=== PATIENT | female | born 1985 | race Caucasian/White ===

== ENCOUNTER 2017-01-27 23:15 | Emergency (ER) | payer MEDICAID ==
[~2017-01-27] VITALS: Ht 154.9 cm; Wt 99.8 kg
[~2017-01-27 23:15] MED LIST: ACETAMINOPHEN500 M3 PO; ALEVE220 MG PO; ALIGN10.5 MG PO; ATIVAN GENERIC0.5 MG PO; ATIVAN1 M1 PO; CIPRO 500MG TA500 MG PO; CYMBALTA30 MG PO; FLEXERIL10 MG PO; HYDROCODONE-APA1 TA1 PO; IBUPROFEN 600M600 MG PO; IRON TABLETS325 MG PO; KEFLEX 500MG.500 MG PO; LORAZEPAM0.5 MG/TAB PO; MACROBID 100MG100 MG PO; MEDROL 4MG. DOSE4 MG PO; MYCOLOG TP; NAPROSYN500 M1 PO; NOMEDS *; NOMEDS XX; NORCO 325 MG-51 TAB PO; NYQUIL OR; PERCOCET 650 MG1 TAB PO; PHENERGAN25 M3 PO; PREDNISONE 10MG10 MG PO; PREDNISONE 20MG20 MG PO; PRENATAL PLUS1 TA1 PO; PROZAC 20MG CAP20 MG PO; PROZAC40 MG PO; PYRIDIUM 200MG200 MG PO; ROBAXIN-750750 MG PO; TESSALON PERLE100 M1 PO; TESSALON PERLE100 MG PO; TUSSIN DM 10 MG PO; TYLENOL ES500 M1 PO; TYLENOL EXTRA500 M1 PO; TYLENOL W/CODEI1 TA2 PO; Tramadol HCl50 MG PO; VIBRAMYCIN 100100 MG PO; VICODIN 5/500 T1 TAB PO; VIGAMOX 3 ML3 ML OP; VISTARIL25 M1 PO; VITAMIN D50000 IU PO; VOLTAREN75 MG PO; ZITHROMAX Z PA250 MG PO
[2017-01-27 23:44] LABS: HEMOGLOBIN 12.3 g/dL (12.2-16.2); LYMPH # 2.4 K/mm3 (0.7-4.5); LYMPH % 30.8 % (10-50.0)
[2017-01-27 23:47] LABS: URINE BILIRUBIN - DIPSTICK NEGATIVE (NEG); URINE BLOOD 3+ (NEG)
--- NOTE | 2017-01-28 00:04 | Emergency Room Report ---
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 N Clinical Suspician of Infection? N Mental Status: 1 - Regular (Normal Baseline) Sepsis Risk:Low Sepsis Risk Have you (or family members/close friends) recently traveled outside the [place]? N If Yes, where/when: Have you had exposure to infectious disease within the past month? TB? Other? Specify: Comment The patient complains of intermittent headaches, vertigo, and double vision. She says it is happening 4-5 times over the past week. It is always in the evening. She has about a 10 minute episode where she gets vertigo and says that her vision gets blurry and double. All of that resolves and then she develops a left -sided headache. She has phonophobia and nausea with the headache, but not photophobia. She says that the headache will resolve overnight and when she wakes up the next morning she is back to normal. The same thing happened tonight starting at about 6 PM. She says that her mother told her that her pupils were dilated. She currently just has a LEFT sided headache radiating down into her neck. No current vertigo or diplopia. She has a history of migraines when younger, but nothing recent. No auditory symptoms. ALLERGIES Coded Allergies: Sulfa (Sulfonamide Antibiotics) (Intermediate, I-RASH 12/30/16) Home Medications Active Scripts Azithromycin (Zithromycin (Z-ZENON) 250MG Tab) 250 MG PO DAILY #6 TAB Prov: 12/30/16 Prednisone (Prednisone 20MG) 20 MG PO BID #10 TAB Prov: 12/30/16 BENZONATATE (Benzonatate) 100 MG PO TID #15 CAP Prov: 12/30/16 Cyclobenzaprine Hcl (Flexeril) 5 MG PO TIDP PRN back pain or spasm #10 TAB Prov: 10/29/16 Reported Medications Fluoxetine Hcl (Prozac 20MG Capsule(Generic)) 20 MG PO DAILY History Medical History General CAD? No Angina: No RI: No Hypertension? No Hyperlipidemia? No CHF? No DVT? No PE? No COPD? No Asthma? No Anemia? No GERD? No Gastric ulcers? No GI Bleed? No Hernia? No Thyroid Problems? No Hypothyroidism? No CVA? No Seizures? No Diabetes? No Insulin Dependent: No Insulin Pump: No Home FSBS? No Renal Insuffiency? No End Stage Renal Disease? No UTI? Yes Stones? No BPH? No GB Disease: Yes Nephritic Syndrome? No Asplenia? No Hepatitis? No Sickle Cell Disease? No Arthritis? No Migraines? No Cataracts? No Glaucoma? No MRSA? No HIV? No TB? No Anxiety? Yes Depression? Yes Cancer? No More? 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 Psychiatric/Neurological headache, denies numbness, denies weakness Physical Exam Vital Signs Vital Signs Date Time Temp Pulse Resp B/P Pulse O2 O2 Flow FiO2 Ox Delivery Rate 01/28 0110 98.0 67 20 110/69 100 01/28 0044 98.2 56 20 117/71 100 01/28 0037 20 01/28 0011 97.8 70 20 113/58 99 01/27 2329 98.0 78 20 135/67 99 01/27 2325 98.0 76 18 135/67 99 General Appearance high BMI Eye Exam - bilateral eye normal exam, bilateral eye PERRL, bilateral eye EOMI Comment No nystagmus. Ear, Nose, Throat hearing grossly normal, normal ENT inspection, tympanic membranes and external auditory canals normal. Neck normal inspection, non-tender, supple, full range of motion Respiratory Status Yes: trachea midline, chest symmetrical, non tender chest. No: respiratory distress. Lung Sounds bilateral: normal breath sounds, lungs clear. 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 No Results/Orders Laboratory Tests 01/27/17 2340: Sodium 137, Potassium 3.5, Chloride 103, Carbon Dioxide 24, BUN 11, Creatinine 0.9, Estimated Creat Clear 145, Estimated GFR (MDRD) 74, Glucose 107 H, Calcium 9.2, Total Bilirubin 0.6, AST 14 L, ALT 23, Alkaline Phosphatase 95, Total Protein 7.7, Albumin 3.7, Globulin 4.0 H, Albumin/Globulin Ratio 0.9 L, WBC 7.7, RBC 4.00 L, Hgb 12.3, Hct 35.9 L, MCV 89.9, RDW 13.4, Plt Count 210, MPV 6.3 L, Gran % 60.3, Gran # 4.7, Lymphocytes % 30.8, Monocytes % 3.9, Eosinophils % 4.7, Basophils % 0.3, Lymphocytes # 2.4, Monocytes # 0.3, Eosinophils # 0.4, Basophils # 0.0, PUBS MCHC 34.3, MCH 30.9 01/27/17 2320: Urine Color YELLOW, Urine Appearance CLEAR, Urine pH 6.5, Ur Specific [place] <= 1.005, Urine Protein NEGATIVE, Urine Ketones NEGATIVE, Urine Blood 3+ H, Urine Nitrate NEGATIVE, Urine Bilirubin NEGATIVE, Urine Urobilinogen 0.2, Ur Leukocyte Esterase TRACE H, Urine RBC 10-20, Urine WBC 3-5, Ur Squamous Epith Cells 3-5, Urine Bacteria 1+, Urine Glucose NEGATIVE Current Medication Orders Sig/Kirt Start time Last Medication Dose Route Stop Time Status Admin Ketorolac 0 .STK-MED ONE 01/28 35 DC Tromethamine .ROUTE Ondansetron HCl 0 .STK-MED ONE 01/28 35 DC .ROUTE Ketorolac 30 MG ONCE ONE 01/28 30 DC 01/28 Tromethamine IV 01/28 31 0037 Ondansetron HCl 4 MG ONCE ONE 01/28 0030 DC 01/28 IV 01/28 31 0037 Sodium Chloride 1,000 ML .Q1H1M 01/27 2345 DC 01/27 IV 01/285 2340 Sodium Chloride 10 ML PRN PRN 01/27 2345 AC IV 01/28 2333 Sodium Chloride 10 ML PRN PRN 01/27 2345 AC IV 01/28 2333 Sodium Chloride 1,000 ML .STK-MED ONE 01/27 2334 DC IV Orders Procedure Date/time Status DIET-NOTHING BY MOUTH 01/[address] HEAD W/O CONTRAST 01/[address] HEAD REQ 01/27 2333 Complete IV SALINE LOCK 01/27 2333 Active URINALYSIS/COMPLETE 01/27 2333 Complete URINE 01/27 2333 Complete COMPLETE METABOLIC PANEL 01/27 2333 Complete CBC WITH AUTO DIFF 01/27 2333 Complete XRAY/CT/US XRAY/CT/US CT head Comment CT scan interpreted by [facility] radiologist. Faxed report received and reviewed: No CT evidence of acute intracranial pathology/trauma. Progress - 1:17 AM: The patient's headache is almost completely gone and she feels ready to be discharged. I feel that the patient's symptoms are most likely a migraine, with the diplopia and vertigo being elements of an aura. However, I have advised the patient that she should see her primary care physician for further evaluation to rule out other causes as well. Advised to return if she has return of diplopia that does not resolve in a quick fashion as it has done previously where she has intolerable headache or vertigo. Departure Departure Disposition DC Home or Self Care(routine) Clinical Impression Primary Impression: Migraine headache Qualifiers: Migraine type: with aura Status migrainosus presence: with status migrainosus Intractability: not intractable Qualified Code: G43.101 - Migraine with aura, not intractable, with status migrainosus Secondary Impressions: Diplopia, Vertigo Condition STABLE Referrals JAN GUTIERREZ (Family) Patient Instructions DI for Migraine, DI for Vertigo Additional Instructions Additional instructions for HEADACHE: See your physician as soon as possible for further evaluation. Return immediately if worsening headache, persistent double vision, vomiting, problems with vision or speech, fever, numbness or weakness of the extremities, neck pain or stiffness. Prescriptions Current Visit Scripts Naproxen (Naprosyn 500MG Tab) 500 MG PO BID #14 TAB Ondansetron (Zofran 4MG Odt) 4 MG PO Q8HP PRN NAUSEA AND VOMITING #10 ODT ED Critical Care Critical Care No at 0120
[2017-01-28] MEDS ORDERED: ZOFRAN ODT4 MG PO (01:20)
[2017-01-28] MEDS ORDERED: NAPROSYN500 M1 PO (01:20)
[2017-01-28 01:32] VITALS: BP 110/69
--- NOTE | 2017-01-28 05:38 | RADIOLOGY REPORT PS360 ---
CT HEAD W/O CONTRAST HISTORY: Dizziness and headache HEADACHE ORDERING PHYSICIAN: Sim Rubio MD PATIENT AGE: 31 years COMPARISON: None TECHNIQUE: Axial images obtained without contrast. Brain and bone windows reviewed. FINDINGS: No midline shift, mass effect, intracranial hemorrhage, hydrocephalus, or extra-axial fluid collection is evident. The calvarium has an unremarkable appearance. No mastoid effusion. The visualized paranasal sinuses are unremarkable. IMPRESSION: Negative CT head without contrast. No acute finding.
--- OUTSIDE RECORDS SUMMARY | 2017-02-02 09:09 | External Medical Summary Rpt ---
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 Care Caterer Helper Name Role Phone ALFARIS MOH, ALFARIS Unavailable Unavailable MOH ALFARIS MOH, ALFARIS Unavailable Unavailable MOH ALLRAN JR OMAR, ALLRAN Unavailable Unavailable JR OMAR ALLRAN JR OMAR, ALLRAN Unavailable Unavailable JR OMAR BESSON ANTONY, BESSON Unavailable Unavailable ANTONY [facility] Unavailable Unavailable [facility]ATOR[facility], [facility] Unavailable Unavailable [facility]ATOR[facility], [facility] ALVARADO, ALVARADO Unavailable Unavailable [facility] Unavailable Unavailable [facility] Unavailable Unavailable HEATHER HERRERA MD, Unavailable Unavailable HEATHER HERRERA MD [facility] & Unavailable Unavailable DUBILIER, [facility] DOUGLASS ALEX, DOUGLASS Unavailable Unavailable [facility] Un[facility] ABIGAIL GRACE, Unavailable Unavailable ABIGAIL GRACE LEONA MAREK, LEONA Unavailable Unavailable MAREK LEONA MAREK, LEONA Unavailable Unavailable MAREK JORDANA COPPOLA MD, Unavailable Unavailable JORDANA Coppola MD, Unavailable Unavailable Jordana Coppola MD JACY MAREK, JACY MAREK Unavailable Unavailable HARPEL WANDA, HARPEL Unavailable Unavailable WANDA HARPEL WANDA, HARPEL Unavailable Unavailable WANDA [facility] Un[facility] Un[facility], [facility] Unavailable Unavailable [facility], [facility], Unavailable Unavailable [facility] Unavailable Unavailable IMAGING [facility], [facility] Leticia Allred MD, Unavailable Unavailable Leticia Allred MD WANG MANUEL, WANG Unavailable Unavailable MANUEL Sol Hicks MD, Unavailable Unavailable Sol TATE GRE, Unavailable Unavailable [facility], Unavailable Unavailable [facility] Unavailable Unavailable SERVICES, [facility] Unavailable Unavailable [facility] Un[facility] Unavailable [facility], [facility] Unavailable Unavailable LAB, [facility] Unavailable [facility]available CENTER, [facility] Unavailable Unavailable CENTER, [facility] ARDEN HAMLIN, Unavailable Unavailable ARDEN SIMPSON BOUBACAR VICKIE TOD, VICKIE TOD Unavailable Unavailable RENUSCH, RENUSCH Unavailable Unavailable RENUSCH YENI, RENUSCH Unavailable Unavailable YENI SADEK MOH, SADEK MOH Unavailable Unavailable SELPH [facility], [facility]PH [facility] Unavailable Unavailable SOTINGEANU DIANN, Unavailable Unavailable SOTINGEANU DIANN TYLER SHE, Unavailable Unavailable TYLER SHE [facility], Unavailable Unavailable [facility] Unavailable Unavailable CENTER, [facility] STONE, STONE Unavailable Unavailable [facility] Unavailable Unavailable [facility] Unavailable Unavailable [facility] Unavailable [facility] Unavailable [facility]available DEPT [facility] Purpose Continuity of Care Document - 10-06-2012 through 2016 Problems Code Diagnosis DOS Provider Status R05 COUGH 12-30-2016 [facility] M5417 RADICULOPAT 11-09-2016 [facility] PHYS[facility]ANS LUMBOSACRAL GROUP REGION M5442 LUMBAGO 10-29-2016 [facility] WITH [facility]YSICIANS, SCIATICA PLLC LEFT SIDE K5289 OTH SPEC 08-03-2016 [facility] NONINFECTIV [facility]ICIANS, [facility] GA[facility] ITIS & COLITIS K529 NONINFECTIV 08-03-2016 [facility] INC ITIS & COLITIS UNS M722 PLANTAR 04-20-2016 [facility] FASCIAL PHYSICIANS, FIBROMATOSI [facility] S M2669 OTHER 04-05-2016 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 [id number] DISLOCATION 04-05-2016 [facility] OF JAW PHYSICIANS, INITIAL PLLC ENCOUNTER K021GHI SPRAIN 04-05-2016 [facility] LIGAMENTS PHYSICIANS, T-SPINE PLLC INITIAL ENCOUNTER Z720 TOBACCO USE 04-05-2016 [facility] INC Z0100 ENCOUNTER 01-28-2016 [facility] EXAM EYES & GRE VISION W/O ABNORMAL FIND [id number] MIGRAINE 10-10-2015 [facility] UNS NOT PHYSICIANS, INTRACT W/O PLLC STATUS MIGRAINOSUS R0789 OTHER CHEST 10-10-2015 [facility] PAIN PHYSICIANS, PLLC 28946 OTHER&UNSPE 05-12-2015 [facility] CIFIED DISC PHYSICIANS, DISORDER PLLC CERVICAL REGION 77932 OTHER 04-16-2015 [facility] FATIGUE INC 77100 OTHER SIGN 11-01-2014 JORDANA Kelley AND SYMPTOM [place] IN BREAST 52839 BREECH 10-25-2014 [facility] PRES[facility]ATIO ANESTH OF N W/O THE BLUE MENTION VERSION DELIV 60431 PREV C/S 10-25-2014 [facility] DELIV DELIV PHYSICIANS W/WO GROUP MENTION ANTPRTM COND V252 STERILIZATI 10-25-2014 [facility] INC V270 OUTCOME OF 10-25-2014 [facility] DELIVERY PHYSICIANS SINGLE GROUP LIVEBORN V7269 OTHER 10-25-2014 [facility] & EXAMINATION DUBILIER V221 SUPERVISION 10-19-2014 JORDANA Kelley OF OTHER [place] NORMAL 85310 PREMATURE 10-18-2014 [facility] RUPTURE [facility] MEMBRANES INC ANTEPARTUM 50060 OTHER 10-14-2014 JORDANA Kelley THREATENED [place] LABOR, ANTEPARTUM 24084 EDEMA OR 10-14-2014 [facility] EXCESSIVE [facility] WEIGHT GAIN INC ANTEPARTUM 33341 THREATENED 10-08-2014 [facility] PREMATURE PHYSICIANS LABOR GROUP ANTEPARTUM 15084 OTHER 10-07-2014 [facility] SPECIFED [facility] COMPLICATIO INC N ANTEPARTUM V286 SCREENING 10-05-2014 [facility] OF [facility] STREPTOCOCC INC US B V771 SCREENING 09-27-2014 [facility] FOR [facility] DIABETES INC MELLITUS 7910 PROTEINURIA 09-25-2014 [facility] INC 78495 DECR 09-07-2014 JORDANA COPPOLA MD MGMT MOTH ANTPRTM COND/COMP V285 08-13-2014 [facility]CREENING [facility] FOR INC ISOIMMUNIZA TION 7840 HEADACHE 07-20-2014 [facility] INC 50439 ABDOMINAL 07-20-2014 [facility] PAIN, [facility] UNSPECIFIED INC SITE 4659 ACUTE URIS 07-10-2014 [facility] OF [facility] UNSPECIFIED INC SITE 7291 UNSPECIFIED 07-10-2014 ALFARIS MOH MYALGIA AND MYOSITIS V2889 OTHER 05-24-2014 [facility] INC SCREENING 490 BRONCHITIS 05-13-2014 LEONA MAREK NOT SPECIFIED ACUTE OR CHRONIC 46687 EFFUSION OF 04-15-2014 [facility] 15808 PAIN IN 04-15-2014 [facility] JOINT, MEDICAL LOWER [facility]G [facility] 8449 SPRAIN&STRA 04-15-2014 [facility] IN OF UNSPECIFIED SITE OF KNEE&LEG 37977 UNSPECIFIED 04-15-2014 [facility] SITE OF ANKLE SPRAIN AND STRAIN 9597 INJURY 04-15-2014 [facility] OTHER&UNSPE MEDICAL CIFIED KNEE IMAGING ASS LEG ANKLE&FOOT E8888 OTHER FALL 04-15-2014 [facility] 6268 OTH D/O 03-23-2014 HARPEL WANDA MENSTRUATIO N&OTH ABN BLEED FE GNT TRACT V704 EXAMINATION 03-23-2014 [facility] MEDICOLEGAL LABORATORIE REASON S V7231 ROUTINE 03-23-2014 HARPEL WANDA GYNECOLOGIC AL EXAMINATION V7242 03-15-2014 [facility] POSITIVE RESULT 300.00 300.00 09-27-2013 [place] ANXIETY [facility] Hospital 305.1 305.1 09-27-2013 [place] TOBACCO USE [facility] 311 311 09-27-2013 [place] DEPRESSIVE [facility] NEC V242 ROUTINE 07-25-2013 JORDANA Kelley [place] FOLLOW-UP 18710 CALCU 2013 PATHOLOGY & [facility] CYTOLOGY W/OTH LAB CHOLECYST W/O MENTION OBST 04570 CALCU 2013 [facility] MEDICAL W/O MENTION IMAGING ASS CHOLECYST/O BST 06045 ACUTE AND 2013 SIVAKUMAR SIMPSON CHRONIC OMAR CHOLECYSTIT IS 5756 CHOLESTEROL 2013 PATHOLOGY & OSIS OF CYTOLOGY [facility] LAB 575.9 575.9 DIS 06-26-2013 [facility] Hospital NOS V14.8 V14.8 06-26-2013 [facility] HX-DRUG [facility] ALLERGY [facility] Hospital 5759 UNSPECIFIED 06-25-2013 [facility] OF SERVICES GALL[place] 88111 ABDOMINAL 06-25-2013 [facility] PAIN RIGHT EMERGENCY UPPER SERVICES QUADRANT 95018 CALCU BD 06-20-2013 SIVAKUMAR SIMPSON W/OTH OMAR CHOLECYST W/O MENTION OBSTRUCTION 5758 OTHER 06-20-2013 SIVAKUMAR SIMPSON SPECIFIED OMAR DISORDER OF [place] 493.90 493.90 06-19-2013 [place] ASTHMA, [facility] UNSPECIFIED Hospital 574.20 574.20 06-19-2013 [facility] CHOLELITHIA [facility] SIS NOS Hospital V2502 GENERAL 06-06-2013 JORDANA COPPOLA MD INITIATION OT CONTRACEPT MEASURES V2509 OT GENERAL 06-06-2013 JORDANA COPPOLA MD CNSL&ADVICE CONTRACEPT MANAGEMENT V5832 ENCOUNTER 06-06-2013 JORDANA Kelley FOR REMOVAL [place] OF SUTURES 285.9 285.9 06-02-2013 [place] ANEMIA NOS [facility] 641.21 641.21 GWEN 06-02-2013 [facility] V [address]139 PREMATURE 06-02-2013 JORDANA COPPOLA MD OF [place] WITH DELIVERY 652.21 652.21 06-02-2013 [facility] C/S DELIV 06-02-2013 JORDANA Kelley W/O INDICAT [place] DELIV W/WO ANTPRTM COND V27.0 V27.0 06-02-2013 [facility] DELIVER-SIN [facility] LIVEBORN 2859 UNSPECIFIED 05-30-2013 [facility] 79036 UNSPECIFIED 05-30-2013 [facility] ANTEPARTUM MEDICAL HEMORRHAGE IMAGING ASS ANTEPARTUM 51304 BREECH 05-30-2013 [facility] PRESENTATIO MEDICAL N W/O IMAGING ASS MENTION VERSION ANTPRTM 76241 OT 05-30-2013 [facility]ACENT[facility] CLARY & CONDS DUBILIER AFFECT MANAGEMENT MOTH DELIV 4660 ACUTE 05-10-2013 [facility] 99488 OT CURRENT 04-30-2013 JORDANA COPPOLA MD CLASSIFIABL E ELSW ANTPRTM 9222 CONTUSION 04-30-2013 JORDANA LOTT MD ABDOMINAL WALL 67265 DYSPLASIA 02-20-2013 JORDANA ESTRADA CERVIX [facility] UNSPECIFIED 32090 GALLSTONE 01-25-2013 [facility] V222 12-18-2012 [facility] 25363 THREATENED 11-12-2012 [facility] UNSPECIFIED SERVICES EPISODE CARE 63104 THREATENED 11-12-2012 [facility] , [facility] ANTEPARTUM INC 35089 UNSPEC 11-12-2012 [facility] HEMORRHAGE MEDICAL EARLY IMAGING ASS ANTEPARTUM 14865 OT CURRENT 11-12-2012 [facility] MATERNAL [facility]ERGENCY CCE-COMPL SERVICES PG CB/PP-UNS EOC 64214 OTH 10-27-2012 [facility] PLACENTAL PHYSICIAN CONDS GROUP PCC AFFECT MGMT MOTH ANTPRTM 21374 OBESITY, 10-17-2012 [facility] UNSPECIFIED PHYSICIAN GROUP PCC 6260 ABSENCE OF 10-17-2012 [facility] MENSTRUATIO PHYSICIAN N GROUP PCC V2689 OTHER 10-06-2012 [facility] SPECIFIED [facility] DEPT MANAGEMENT VASILIY G43.909 MIGRAINE, UNSP, NOT INTRACTABLE , WITHOUT STATUS MIGRAINOSUS H53.2 DIPLOPIA J40 BRONCHITIS, NOT SPECIFIED ACUTE OR CHRONIC K52.9 NONINFECTIV E GASTROENTER ITIS AND COLITIS, UNSPECIFIED M50.90 CERVICAL DISC DISORDER, UNSP, UNSPECIFIED CERVICAL REGION M54.40 LUMBAGO WITH SCIATICA, UNSPECIFIED SIDE M72.2 PLANTAR FASCIAL FIBROMATOSI S R07.89 OTHER CHEST PAIN R42 DIZZINESS AND GIDDINESS S03.00XA DISLOCATION OF JAW, UNSPECIFIED SIDE, INITIAL ENCOUNTER S29.019A STRAIN OF MUSCLE AND TENDON OF UNSP WALL OF THORAX, INIT Allergies, Adverse Reactions, Alerts Type Drug Allergy Adverse Reaction to Substance Substance Reaction Severity SULFA (sulfonamide) Unknown Unknown Clinical Alert Notifications Alert Asthma: no influenza vaccine in the last 365 days Medications Na ND Rx Da Fi Fi Am Da Di Ph RX Ph St me C No te ll ll ou ys ag ar # ys at rm s nt no ma ic us Or Da si cy ia de te s n re d BE 68 04 05 15 5 00 [facility] NZ 38 -2 -1 .0 00 L- ti ON 20 00 07 MA ve AT 24 20 20 48 RT AT 70 17 17 45 E 1 08 PH 10 AR 0 MA MG CY CA #5 PS 91 UL E ID 00 04 05 10 5 00 [facility] ED 14 -2 -1 .0 00 L- ti NI 39 6- 9- 00 07 MA ve SO 73 20 20 48 RT NE 80 17 17 45 5 07 PH 20 AR MA MG CY TA #5 BL 91 ET AZ 59 04 05 6. 5 00 [facility] IT 76 -2 -1 00 00 L- ti HR 23 6- 9- 0 07 MA ve OM 06 20 20 48 RT YC 00 17 17 45 IN 1 06 PH AR 25 MA 0 CY MG #5 TA 91 BL ET FL 68 04 05 30 30 00 WA Ac UO 64 -1 -0 .0 00 L- ti XE 50 1- 5- 00 07 MA ve TI 13 20 20 43 RT NE 05 17 17 69 4 99 PH HC AR L MA 20 CY MG #5 91 CA PS UL E NA 65 03 03 28 14 00 WA Ac ID 16 -0 -3 .0 00 L- ti OX 20 6- 1- 00 07 MA ve EN 19 20 20 47 RT 01 17 17 44 50 1 32 PH 0 AR MG MA CY TA BL #5 ET 91 CY 68 03 03 42 14 00 WA Ac CL 64 -0 -3 .0 00 L- ti OB 50 6- 1- 00 07 MA ve EN 51 20 20 47 RT ZA 89 17 17 44 ID 0 33 PH IN AR E MA 10 CY MG #5 91 TA BL ET ME 59 03 03 21 6 00 WA Ac TH 74 -0 -3 .0 00 L- ti YL 60 6- 1- 00 07 MA ve ID 00 20 20 47 RT ED 10 17 17 44 NI 3 34 PH SO AR LO MA NE CY 4 #5 MG 91 DO SE PK TR 00 03 03 42 14 00 WA Ac AM 37 -0 -3 .0 00 L- ti AD 84 6- 1- 00 04 MA ve OL 15 20 20 52 RT 10 17 17 95 HC 5 72 PH L AR 50 MA CY MG #5 TA 91 BL ET HY 00 03 03 [address] 40 -0 -3 .0 00 L- ti OC 60 7- 1- 00 02 MA ve OD 12 20 20 23 RT ON 30 17 17 94 -A 1 14 PH CE AR TA MA PR CY NO PH #5 EN 91 5- 32 5 ID 59 02 03 27 7 00 WA Ac ED 74 -2 -2 .0 00 L- ti NI 60 3- 4- 00 07 MA ve SO 17 20 20 47 RT NE 30 17 17 25 6 30 PH 10 AR MA MG CY TA #5 BL 91 ET CY 68 02 03 10 7 00 WA Ac CL 64 -2 -2 .0 00 L- ti OB 50 3- 4- 00 07 MA ve EN 51 20 20 47 RT ZA 89 17 17 25 ID 0 31 PH IN AR E MA 10 CY MG #5 91 TA BL ET HY 00 02 03 [address] 40 -2 -2 .0 00 L- ti OC 60 3- 4- 00 02 MA ve OD 12 20 20 23 RT ON 30 17 17 92 -A 1 64 PH CE AR TA MA PR CY NO PH #5 EN 91 5- 32 5 FL 68 12 01 30 30 00 WA Ac UO 64 -2 -2 .0 00 L- ti XE 50 8- 0- 00 07 MA ve TI 13 20 20 43 RT NE 05 16 17 69 4 99 PH HC AR L MA 20 CY MG #5 91 CA PS UL E Lo 63 01 0 No ra 73 -2 ze 90 2- Lo pa 15 20 ng m 51 14 er 1M 0 G Ac Ta ti bl ve et Mo 00 10 0 No rp 40 -2 hi 91 1- Lo ne 25 20 ng 83 13 er 4M 0 G/ Ac Ml ti ve Sy ri ng e ON 00 10 0 No DA 64 -2 NS 16 1- Lo ET 08 20 ng RO 02 13 er N 5 HC Ac L ti 4 ve MG /2 ML AL ID 00 10 0 No OM 64 -2 ET 11 1- Lo PUENTE 49 20 ng ZI 53 13 er NE 5 Ac 25 ti ve MG /M L AM PU L Mo 00 10 0 No rp 40 -2 hi 91 1- Lo ne 25 20 ng 83 13 er 4M 0 G/ Ac Ml ti ve Sy ri ng e SO 00 10 0 No DI 40 -2 UM 97 1- Lo 98 20 ng CH 42 13 er LO 0 RI Ac DE ti ve 0. 9% SO NADER TI ON Sa 63 10 1 No li 80 -2 ne 70 0- Lo 10 20 ng Fl 07 13 er us 5 h Ac 10 ti ML ve Sy ri ng e KE 00 10 0 No TO 40 -1 RO 93 4- Lo LA 79 20 ng C 50 13 er 30 1 Ac MG ti /M ve L AL ID 00 10 0 No OM 64 -1 ET 11 4- Lo PUENTE 49 20 ng ZI 53 13 er NE 5 Ac 25 ti ve MG /M L AM PU L Sa 63 10 0 No li 80 -1 ne 70 4- Lo 10 20 ng Fl 07 13 er us 5 h Ac 10 ti ML ve Sy ri ng e Mo 00 10 0 No rp 40 -1 hi 91 4- Lo ne 25 20 ng 83 13 er 4M 0 G/ Ac Ml ti ve Sy ri ng e SO 00 10 0 No DI 40 -1 UM 97 4- Lo 98 20 ng CH 42 13 er LO 0 RI Ac DE ti ve 0. 9% SO NADER TI ON SO 00 10 0 No DI 40 -0 UM 97 8- Lo 98 20 ng CH 30 13 er LO 9 RI Ac DE ti ve 0. 9% SO NADER TI ON NI 00 09 0 No CO 06 -2 TI 75 5- Lo NE 12 20 ng 61 13 er 21 4 Ac MG ti /2 ve 4H R PA TC H SO 00 09 0 No DI 40 -2 UM 97 4- Lo 10 20 ng CH 16 13 er LO 6 RI Ac DE ti ve 0. 9% SO LN CE 60 09 1 No FA 50 -2 ZO 50 4- Lo LI 74 20 ng N 90 13 er 1 5 GM Ac ti ve AL LA [address] 40 -2 AT 97 4- Lo ED 95 20 ng 30 13 er RI 9 NG Ac ER ti S ve IN JE CT IO N PI 11 09 0 No TO 11 -2 CI 11 4- Lo N 11 20 ng 30 13 13 er 3 UN Ac IT ti S/ ve LR 50 0M L IV MA 00 09 3 No PA 90 -2 P 41 4- Lo 32 98 20 ng 5 26 13 er MG 1 Ac TA ti BL ve ET Ib 62 09 3 No up 58 -2 ro 40 4- Lo fe 74 20 ng n 60 13 er 40 1 0M Ac G ti Ta ve bl et Mo 00 09 1 No rp 40 -2 hi 91 4- Lo ne 25 20 ng 83 13 er 4M 0 G/ Ac Ml ti ve Sy ri ng e OX 00 09 3 No YC 40 -2 OD 60 4- Lo ON 55 20 ng E 26 13 er HC 2 L Ac 5 ti MG ve TA BL ET SE 67 09 3 No NO 61 -2 KO 80 4- Lo T- 31 20 ng S 00 13 er TA 1 BL Ac ET ti ve SI 63 09 3 No ME 73 -2 TH 90 4- Lo IC 22 20 ng ON 51 13 er E 0 80 Ac ti MG ve TA B CH EW Sa 63 03 0 No li 80 -0 ne 70 9- Lo 10 20 ng Fl 07 13 er us 5 h Ac 10 ti ML ve Sy ri ng e Vital Signs 09-27-2013 18:59 Name Value Interpretat Reference Comment ion Range Body 98.6 [degF] Temperature BP 79 mm[Hg] Diastolic BP Systolic 152 mm[Hg] Heart 77 /min Rate/Pulse O2% 98 % Respiratory 20 /min Rate 09-27-2013 18:11 Name Value Interpretat Reference Comment ion Range BP 82 mm[Hg] Diastolic BP Systolic 139 mm[Hg] Heart 81 /min Rate/Pulse O2% 98 % Respiratory 20 /min Rate 06-26-2013 01:25 Name Value Interpretat Reference Comment ion Range BP 61 mm[Hg] Diastolic BP Systolic 115 mm[Hg] Heart 65 /min Rate/Pulse O2% 96 % Respiratory 16 /min Rate 06-26-2013 00:23 Name Value Interpretat Reference Comment ion Range BP 58 mm[Hg] Diastolic BP Systolic 128 mm[Hg] Heart 65 /min Rate/Pulse O2% 97 % Respiratory 20 /min Rate 06-19-2013 13:22 Name Value Interpretat Reference Comment ion Range BP 55 mm[Hg] Diastolic BP Systolic 111 mm[Hg] Heart 55 /min Rate/Pulse O2% 97 % Respiratory 20 /min Rate 06-19-2013 12:36 Name Value Interpretat Reference Comment ion Range BP 53 mm[Hg] Diastolic BP Systolic 113 mm[Hg] Heart 62 /min Rate/Pulse O2% 98 % Respiratory 20 /min Rate 06-13-2013 12:19 Name Value Interpretat Reference Comment ion Range BP 50 mm[Hg] Diastolic BP Systolic 118 mm[Hg] Heart 76 /min Rate/Pulse Respiratory 20 /min Rate 06-13-2013 11:50 Name Value Interpretat Reference Comment ion Range O2% 98 % 06-13-2013 10:10 Name Value Interpretat Reference Comment ion Range BP 66 mm[Hg] Diastolic BP Systolic 124 mm[Hg] Heart 68 /min Rate/Pulse O2% 98 % Respiratory 18 /min Rate 05-30-2013 19:27 Name Value Interpretat Reference Comment ion Range Weight 223 [lb_av] Measured Weight 101.152 kg Measured 11-12-2012 16:50 Name Value Interpretat Reference Comment ion Range Body 97.5 [degF] Temperature BP 66 mm[Hg] Diastolic BP Systolic 114 mm[Hg] Heart 86 /min Rate/Pulse O2% 97 % Respiratory 18 /min Rate 11-12-2012 15:26 Name Value Interpretat Reference Comment ion Range BP 82 mm[Hg] Diastolic BP Systolic 141 mm[Hg] Heart 79 /min Rate/Pulse O2% 96 % Respiratory 20 /min Rate Results Labs Lab Lab Date Result Refere Interp Status Commen Order Detail nces retati t Range on COMPREHENSIVE METABOLIC PANEL (06-25-2013 23:50) Glucose 06-25-2 91 74-106 complet 013 mg/dL ed Bld-mCn 23:50 c BUN 1020-2 7 mg/dL 7-18 complet Bld-mCn 013 ed c 23:50 Creat 20-2 1.0 0.6-1.0 complet SerPl-m 013 mg/dL ed Cnc 23:50 ESTIMAT 1020-2 132 50-200 complet ED 013 ML/MIN ed CREATIN 23:50 INE CLEARAN CE GFR 06-25-2 68 59- complet (ESTIMA 013 ML/MIN ed KRISTI) 23:50 Sodium 06-25-2 140 136-145 complet SerPl-s 013 mmoL/L ed Cnc 23:50 Potassi 06-25-2 4.1 3.5-5.1 complet um 013 mmoL/L ed SerPl-s 23:50 Cnc Chlorid 06-25-2 103 98-107 complet e 013 mmoL/L ed SerPl-s 23:50 Cnc CO2 20-2 28 21.0-32 complet SerPl-s 013 mmoL/L .0 ed Cnc 23:50 Calcium 06-25-2 9.1 8.5-10. complet 013 mg/dL 1 ed SerPl-m 23:50 Cnc Prot 20-2 8.1 6.4-8.2 complet SerPl-m 013 gm/dL ed Cnc 23:50 Albumin 20-2 3.4 3.4-5.0 complet 013 gm/dL ed SerPl-m 23:50 Cnc Globuli 20-2 4.7 1.3-3.2 complet n 013 gm/dL ed Ser-mCn 23:50 c Albumin 20-2 0.7 UNK 1.1-1.8 complet /Glob 013 ed SerPl-m 23:50 Rto Bilirub 06-25-2 1.0 0.2-1.0 complet 013 mg/dL ed SerPl-m 23:50 Cnc AST 1020-2 73 U/L 15-37 complet SerPl-c 013 ed Cnc 23:50 ALT 1020-2 50 U/L 30-65 complet SerPl-c 013 ed Cnc 23:50 ALP 10-20-2 335 U/L 50-136 complet SerPl-c 013 ed Cnc 23:50 Amylase SerPl-cCnc (06-25-2013 23:50) Amylase 10-20-2 44 U/L 25-115 complet 013 ed SerPl-c 23:50 Cnc LIPASE (06-25-2013 23:50) LIPASE 10-20-2 113 U/L 73-393 complet 013 ed 23:50 CBC with AUTO DIFF (06-25-2013 23:50) WBC # 10-20-2 8.7 4.8-10. complet Bld 013 K/MM3 8 ed Auto 23:50 RBC # 10-20-2 4.07 4.2-5.4 complet Bld 013 M/mm3 ed Auto 23:50 Hgb 10-20-2 12.6 12.2-16 complet Bld-mCn 013 g/dL .2 ed c 23:50 Hct Fr 10-20-2 37.6 % 37.0-47 complet Bld 013 .0 ed 23:50 MCV RBC 10-20-2 92.4 fl 82.2-97 complet 013 .8 ed 23:50 MCH RBC 10-20-2 31.1 pg 27-31.2 complet Qn 013 ed Auto 23:50 MEAN 10-20-2 33.6 31.8-35 complet CORPUSC 013 g/dl .4 ed ULAR 23:50 HGB CONC RDW RBC 10-20-2 13.9 % 11.5-17 complet Auto 013 .5 ed 23:50 Platele 10-20-2 269 142-424 complet t Bld 013 K/mm3 ed Ql 23:50 Manual MEAN 10-20-2 8.1 fl 7.4-10. complet PLATELE 013 4 ed T 23:50 VOLUME Granulo 10-20-2 64.7 % 37.0-80 complet cytes 013 .0 ed Fr Bld 23:50 Auto LYMPH % 10-20-2 28.4 % 10-50.0 complet 013 ed 23:50 Monocyt 10-20-2 3.7 % 1.7-9.3 complet es Fr 013 ed Bld 23:50 Auto Eosinop 10-20-2 2.9 % 0.1-12. complet hil Fr 013 0 ed Bld 23:50 Auto Basophi 10-20-2 0.4 % 0.1-2.0 complet ls Fr 013 ed Bld 23:50 Auto Granulo 06-25-2 5.6 1.8-7.8 complet cytes # 013 K/mm3 ed Bld 23:50 Auto Lymphoc 06-25-2 2.5 0.7-4.5 complet ytes Fr 013 K/mm3 ed Bld 23:50 Auto Monocyt 06-25-2 0.3 0.1-1.0 complet es # 013 K/mm3 ed Bld 23:50 Auto Eosinop 06-25-2 0.3 0.0-0.4 complet hil # 013 K/mm3 ed Bld 23:50 Auto Basophi 06-25-2 0.0 0-0.2 complet ls # 013 K/MM3 ed Bld 23:50 Auto COMPREHENSIVE METABOLIC PANEL (06-19-2013 11:20) Glucose 99 74-106 complet 013 mg/dL ed Bld-mCn 11:20 c BUN 11 7-18 complet Bld-mCn 013 mg/dL ed c 11:20 Creat 0.9 0.6-1.0 complet SerPl-m 013 mg/dL ed Cnc 11:20 ESTIMAT 146 50-200 complet ED 013 ML/MIN ed CREATIN 11:20 INE CLEARAN CE GFR 76 59- complet (ESTIMA 013 ML/MIN ed KRISTI) 11:20 Sodium 140 136-145 complet SerPl-s 013 mmoL/L ed Cnc 11:20 Potassi 4.0 3.5-5.1 complet um 013 mmoL/L ed SerPl-s 11:20 Cnc Chlorid 104 98-107 complet e 013 mmoL/L ed SerPl-s 11:20 Cnc CO2 27 21.0-32 complet SerPl-s 013 mmoL/L .0 ed Cnc 11:20 Calcium 06-19- 9.0 8.5-10. complet 013 mg/dL 1 ed SerPl-m 11:20 Cnc Prot 06-19- 7.6 6.4-8.2 complet SerPl-m 013 gm/dL ed Cnc 11:20 Albumin 10-14-2 3.3 3.4-5.0 complet 013 gm/dL ed SerPl-m 11:20 Cnc Globuli 10-14-2 4.3 1.3-3.2 complet n 013 gm/dL ed Ser-mCn 11:20 c Albumin 10-14-2 0.8 UNK 1.1-1.8 complet /Glob 013 ed SerPl-m 11:20 Rto Bilirub 14-2 1.0 0.2-1.0 complet 013 mg/dL ed SerPl-m 11:20 Cnc AST 10-14-2 84 U/L 15-37 complet SerPl-c 013 ed Cnc 11:20 ALT 10-14-2 53 U/L 30-65 complet SerPl-c 013 ed Cnc 11:20 ALP 10-14-2 256 U/L 50-136 complet SerPl-c 013 ed Cnc 11:20 CBC with AUTO DIFF (06-19-2013 11:20) WBC # 10-14-2 9.7 4.8-10. complet Bld 013 K/MM3 8 ed Auto 11:20 RBC # 10-14-2 3.92 4.2-5.4 complet Bld 013 M/mm3 ed Auto 11:20 Hgb 10-14-2 12.2 12.2-16 complet Bld-mCn 013 g/dL .2 ed c 11:20 Hct Fr 14-2 36.3 % 37.0-47 complet Bld 013 .0 ed 11:20 MCV RBC 10-14-2 92.6 fl 82.2-97 complet 013 .8 ed 11:20 MCH RBC -14-2 31.1 pg 27-31.2 complet Qn 013 ed Auto 11:20 MEAN 10-14-2 33.6 31.8-35 complet CORPUSC 013 g/dl .4 ed ULAR 11:20 HGB CONC RDW RBC -14-2 13.6 % 11.5-17 complet Auto 013 .5 ed 11:20 Platele 10-14-2 302 142-424 complet t Bld 013 K/mm3 ed Ql 11:20 Manual MEAN 10-14-2 7.5 fl 7.4-10. complet PLATELE 013 4 ed T 11:20 VOLUME Granulo -14-2 77.6 % 37.0-80 complet cytes 013 .0 ed Fr Bld 11:20 Auto LYMPH % 10-14-2 17.6 % 10-50.0 complet 013 ed 11:20 Monocyt 10-14-2 2.9 % 1.7-9.3 complet es Fr 013 ed Bld 11:20 Auto Eosinop 10-14-2 1.7 % 0.1-12. complet hil Fr 013 0 ed Bld 11:20 Auto Basophi 10-14-2 0.2 % 0.1-2.0 complet ls Fr 013 ed Bld 11:20 Auto Granulo 10-14-2 7.5 1.8-7.8 complet cytes # 013 K/mm3 ed Bld 11:20 Auto Lymphoc 10-14-2 1.7 0.7-4.5 complet ytes Fr 013 K/mm3 ed Bld 11:20 Auto Monocyt 10-14-2 0.3 0.1-1.0 complet es # 013 K/mm3 ed Bld 11:20 Auto Eosinop 10-14-2 0.2 0.0-0.4 complet hil # 013 K/mm3 ed Bld 11:20 Auto Basophi 10-14-2 0.0 0-0.2 complet ls # 013 K/MM3 ed Bld 11:20 Auto B-HCG Ur Ql (06-19-2013 11:20) B-HCG 10-14-2 NEGATIV NEG complet Ur Ql 013 E ed 11:20 URINALYSIS/COMPLETE (06-19-2013 11:20) URINE 10-14-2 YELLOW YELLOW complet COLOR 013 ed 11:20 URINE 10-14-2 CLOUDY CLEAR complet APPEARA 013 ed NCE 11:20 URINE 10-14-2 NEGATIV NEG complet GLUCOSE 013 E ed - 11:20 DIPSTIC K URINE 10-14-2 1+ NEG complet BILIRUB 013 ed IN - 11:20 DIPSTIC K URINE 10-14-2 NEGATIV NEG complet KETONE 013 E mg/dL ed 11:20 URINE 10-14-2 1.015 1.005-1 complet SPECIFI 013 UNK .030 ed C 11:20 GRAVITY URINE 10-14-2 TRACE-I NEG complet BLOOD 013 NTACT ed 11:20 URINE 10-14-2 8.5 UNK 5.0-8.5 complet PH 013 ed 11:20 URINE 10-14-2 NEGATIV NEG complet PROTEIN 013 E mg/dL ed - 11:20 DIPSTIC K URINE 10-14-2 1.0 NEG complet UROBILI 013 E.U./dL ed NOGEN - 11:20 DIPSTIC K URINE 10-14-2 NEGATIV NEG complet NITRATE 013 E ed - 11:20 DIPSTIC K URINE 10-14-2 TRACE NEG complet LEUK 013 ed ESTERAS 11:20 E URINE 10-14-2 OCC 0 complet RBC 013 rbc/hpf ed 11:20 URINE 10-14-2 3-5 O complet WBC 013 wbc/hpf ed 11:20 URINE 10-14-2 10-20 0-5 complet SQUAMOU 013 #/hpf ed S CELLS 11:20 URINE 10-14-2 OCC O complet BACTERI 013 ed A 11:20 URINE 10-14-2 OCC OCC complet MUCUS 013 ed 11:20 URINE 10-14-2 3+ NONE complet AMORPH 013 ed SEDIMEN 11:20 T COMPREHENSIVE METABOLIC PANEL (06-13-2013 09:50) Glucose 84 74-106 complet 013 mg/dL ed Bld-mCn 09:50 c BUN 8 mg/dL 7-18 complet Bld-mCn 013 ed c 09:50 Creat 06-13- 0.9 0.6-1.0 complet SerPl-m 013 mg/dL ed Cnc 09:50 ESTIMAT 146 50-200 complet ED 013 ML/MIN ed CREATIN 09:50 INE CLEARAN CE GFR 76 59- complet (ESTIMA 013 ML/MIN ed KRISTI) 09:50 Sodium 142 136-145 complet SerPl-s 013 mmoL/L ed Cnc 09:50 Potassi 3.8 3.5-5.1 complet um 013 mmoL/L ed SerPl-s 09:50 Cnc Chlorid 107 98-107 complet e 013 mmoL/L ed SerPl-s 09:50 Cnc CO2 22 21.0-32 complet SerPl-s 013 mmoL/L .0 ed Cnc 09:50 Calcium 8.3 8.5-10. complet 013 mg/dL 1 ed SerPl-m 09:50 Cnc Prot 10-08-2 6.9 6.4-8.2 complet SerPl-m 013 gm/dL ed Cnc 09:50 Albumin 10-08-2 2.7 3.4-5.0 complet 013 gm/dL ed SerPl-m 09:50 Cnc Globuli 1008-2 4.2 1.3-3.2 complet n 013 gm/dL ed Ser-mCn 09:50 c Albumin 08-2 0.6 UNK 1.1-1.8 complet /Glob 013 ed SerPl-m 09:50 Rto Bilirub 06-13-2 0.4 0.2-1.0 complet 013 mg/dL ed SerPl-m 09:50 Cnc AST 1008-2 42 U/L 15-37 complet SerPl-c 013 ed Cnc 09:50 ALT 08-2 35 U/L 30-65 complet SerPl-c 013 ed Cnc 09:50 ALP 08-2 218 U/L 50-136 complet SerPl-c 013 ed Cnc 09:50 LIPASE (06-13-2013 09:50) LIPASE 08-2 90 U/L 73-393 complet 013 ed 09:50 CBC with AUTO DIFF (06-13-2013 09:50) WBC # 1008-2 9.9 4.8-10. complet Bld 013 K/MM3 8 ed Auto 09:50 RBC # 1008-2 3.67 4.2-5.4 complet Bld 013 M/mm3 ed Auto 09:50 Hgb 08-2 11.3 12.2-16 complet Bld-mCn 013 g/dL .2 ed c 09:50 Hct Fr 06-13-2 33.8 % 37.0-47 complet Bld 013 .0 ed 09:50 MCV RBC 08-2 92.2 fl 82.2-97 complet 013 .8 ed 09:50 MCH RBC 08-2 30.7 pg 27-31.2 complet Qn 013 ed Auto 09:50 MEAN 08-2 33.3 31.8-35 complet CORPUSC 013 g/dl .4 ed ULAR 09:50 HGB CONC RDW RBC 08-2 14.0 % 11.5-17 complet Auto 013 .5 ed 09:50 Platele 08-2 255 142-424 complet t Bld 013 K/mm3 ed Ql 09:50 Manual MEAN 10-08-2 8.4 fl 7.4-10. complet PLATELE 013 4 ed T 09:50 VOLUME Granulo 10-08-2 73.2 % 37.0-80 complet cytes 013 .0 ed Fr Bld 09:50 Auto LYMPH % 10-08-2 20.0 % 10-50.0 complet 013 ed 09:50 Monocyt 10-08-2 3.5 % 1.7-9.3 complet es Fr 013 ed Bld 09:50 Auto Eosinop 10-08-2 3.1 % 0.1-12. complet hil Fr 013 0 ed Bld 09:50 Auto Basophi 10-08-2 0.2 % 0.1-2.0 complet ls Fr 013 ed Bld 09:50 Auto Granulo 10-08-2 7.2 1.8-7.8 complet cytes # 013 K/mm3 ed Bld 09:50 Auto Lymphoc 10-08-2 2.0 0.7-4.5 complet ytes Fr 013 K/mm3 ed Bld 09:50 Auto Monocyt 10-08-2 0.4 0.1-1.0 complet es # 013 K/mm3 ed Bld 09:50 Auto Eosinop 10-08-2 0.3 0.0-0.4 complet hil # 013 K/mm3 ed Bld 09:50 Auto Basophi 10-08-2 0.0 0-0.2 complet ls # 013 K/MM3 ed Bld 09:50 Auto URINALYSIS/COMPLETE (06-13-2013 09:40) URINE 06-13-2 YELLOW YELLOW complet COLOR 013 ed 09:40 URINE 06-13-2 Sl CLEAR complet APPEARA 013 Cloudy ed NCE 09:40 URINE 06-13-2 NEGATIV NEG complet GLUCOSE 013 E ed - 09:40 DIPSTIC K URINE 06-13-2 NEGATIV NEG complet BILIRUB 013 E ed IN - 09:40 DIPSTIC K URINE 06-13-2 NEGATIV NEG complet KETONE 013 E mg/dL ed 09:40 URINE 06-13-2 1.020 1.005-1 complet SPECIFI 013 UNK .030 ed C 09:40 GRAVITY URINE 06-13-2 2+ NEG complet BLOOD 013 ed 09:40 URINE 10-08-2 6.0 UNK 5.0-8.5 complet PH 013 ed 09:40 URINE 06-13-2 NEGATIV NEG complet PROTEIN 013 E mg/dL ed - 09:40 DIPSTIC K URINE 06-13-2 0.2 NEG complet UROBILI 013 E.U./dL ed NOGEN - 09:40 DIPSTIC K URINE 06-13-2 NEGATIV NEG complet NITRATE 013 E ed - 09:40 DIPSTIC K URINE 06-13-2 TRACE NEG complet LEUK 013 ed ESTERAS 09:40 E URINE 06-13-2 5-10 0 complet RBC 013 rbc/hpf ed 09:40 URINE 06-13-2 5-10 O complet WBC 013 wbc/hpf ed 09:40 URINE 10-20 0-5 complet SQUAMOU 013 #/hpf ed S CELLS 09:40 URINE 2 1+ O complet BACTERI 013 ed A 09:40 URINE 2 1+ OCC complet MUCUS 013 ed 09:40 pH BldCo (05-30-2013 19:01) pH 7.34 7.35-7. complet BldCo 013 UNK 45 ed 19:01 CBC with AUTO DIFF (05-30-2013 17:10) WBC # 05-30- 11.1 4.8-10. complet Bld 013 K/MM3 8 ed Auto 17:10 RBC # 05-30-2 3.83 4.2-5.4 complet Bld 013 M/mm3 ed Auto 17:10 Hgb 12.3 12.2-16 complet Bld-mCn 013 g/dL .2 ed c 17:10 Hct Fr 35.1 % 37.0-47 complet Bld 013 .0 ed 17:10 MCV RBC 91.7 fl 82.2-97 complet 013 .8 ed 17:10 MCH RBC 05-30- 32.2 pg 27-31.2 complet Qn 013 ed Auto 17:10 MEAN 35.1 31.8-35 complet CORPUSC 013 g/dl .4 ed ULAR 17:10 HGB CONC RDW RBC 05-30- 15.0 % 11.5-17 complet Auto 013 .5 ed 17:10 Platele 09-24-2 197 142-424 complet t Bld 013 K/mm3 ed Ql 17:10 Manual MEAN -24-2 8.7 fl 7.4-10. complet PLATELE 013 4 ed T 17:10 VOLUME Granulo -24-2 73.6 % 37.0-80 complet cytes 013 .0 ed Fr Bld 17:10 Auto LYMPH % 09-24-2 22.3 % 10-50.0 complet 013 ed 17:10 Monocyt 09-24-2 3.2 % 1.7-9.3 complet es Fr 013 ed Bld 17:10 Auto Eosinop 09-24-2 0.8 % 0.1-12. complet hil Fr 013 0 ed Bld 17:10 Auto Basophi 09-24-2 0.1 % 0.1-2.0 complet ls Fr 013 ed Bld 17:10 Auto Granulo 09-24-2 8.2 1.8-7.8 complet cytes # 013 K/mm3 ed Bld 17:10 Auto Lymphoc -24-2 2.5 0.7-4.5 complet ytes Fr 013 K/mm3 ed Bld 17:10 Auto Monocyt 09-24-2 0.4 0.1-1.0 complet es # 013 K/mm3 ed Bld 17:10 Auto Eosinop 09-24-2 0.1 0.0-0.4 complet hil # 013 K/mm3 ed Bld 17:10 Auto Basophi 09-24-2 0.0 0-0.2 complet ls # 013 K/MM3 ed Bld 17:10 Auto B-HCG SerPl EIA 3rd IS-aCnc (11-12-2012 15:20) B-HCG 980888. complet SerPl 013 1 ed EIA 3rd 15:20 mIU/ML IS-aCnc CBC with AUTO DIFF (11-12-2012 15:20) WBC # 11-12- 7.9 4.8-10. complet Bld 013 K/MM3 8 ed Auto 15:20 RBC # 11-12- 4.52 4.2-5.4 complet Bld 013 M/mm3 ed Auto 15:20 Hgb 14.2 12.2-16 complet Bld-mCn 013 g/dL .2 ed c 15:20 Hct Fr 40.0 % 37.0-47 complet Bld 013 .0 ed 15:20 MCV RBC 88.5 fl 82.2-97 complet 013 .8 ed 15:20 MCH RBC 31.4 pg 27-31.2 complet Qn 013 ed Auto 15:20 MEAN 35.5 31.8-35 complet CORPUSC 013 g/dl .4 ed ULAR 15:20 HGB CONC RDW RBC 13.2 % 11.5-17 complet Auto 013 .5 ed 15:20 Platele 220 142-424 complet t Bld 013 K/mm3 ed Ql 15:20 Manual MEAN 8.3 fl 7.4-10. complet PLATELE 013 4 ed T 15:20 VOLUME Granulo 70.0 % 37.0-80 complet cytes 013 .0 ed Fr Bld 15:20 Auto LYMPH % 11-12-2 23.7 % 10-50.0 complet 013 ed 15:20 Monocyt 11-12-2 4.9 % 1.7-9.3 complet es Fr 013 ed Bld 15:20 Auto Eosinop -09-2 1.2 % 0.1-12. complet hil Fr 013 0 ed Bld 15:20 Auto Basophi -09-2 0.2 % 0.1-2.0 complet ls Fr 013 ed Bld 15:20 Auto Granulo -09-2 5.5 1.8-7.8 complet cytes # 013 K/mm3 ed Bld 15:20 Auto Lymphoc -09-2 1.9 0.7-4.5 complet ytes Fr 013 K/mm3 ed Bld 15:20 Auto Monocyt -09-2 0.4 0.1-1.0 complet es # 013 K/mm3 ed Bld 15:20 Auto Eosinop -09-2 0.1 0.0-0.4 complet hil # 013 K/mm3 ed Bld 15:20 Auto Basophi -09-2 0.0 0-0.2 complet ls # 013 K/MM3 ed Bld 15:20 Auto B-HCG Ur Ql (11-12-2012 15:00) B-HCG 03-09-2 POSITIV NEG complet Ur Ql 013 E ed 15:00 Procedures Procedure DOS Code Location Performer Comment RADIOLOGI 87324 DESTINEY ALVARADO C EXAM 7 MEDICAL CHEST 2 IMAGING VIEWS ASS FRONTAL&L ATERAL INJECTION J1040 [facility] 7 PHYSICIAN PHYSICIAN METHYLPRE S GROUP S GROUP DNISOLONE ACETATE 80 MG THERAPEUT 00965 [facility] STONE IC 7 PHYSICIAN PROPHYLAC S GROUP TIC/DX INJECTION SUBQ/IM RADEX 17005 [facility] SPINE 7 PHYSICIAN LUMBOSACR S, PLLC AL MINIMUM 4 VIEWS THERAPEUT 34203 ANKITA LUCIANO IC 6 [facility] PROPHYLAC INC INC TIC/DX INJECTION SUBQ/IM OPHTH 54241 [facility] 6 GRE GRE XM&EVAL COMPRE NEW PT 1/> VST ECG 83229 ANKITA LUCIANO ROUTINE 6 [facility] ECG INC INC W/LEAST 12 LDS TRCG ONLY W/O I&R THER 37212 ANKITA LUCIANO PROPH/DX 6 [facility] NJX IV INC INC PUSH SINGLE/1S T SBST/DRUG COMPREHEN 89315 ANKITA LUCIANO SIVE 6 [facility] METABOLIC INC INC PANEL THERAPEUT 92322 ANKITA LUCIANO IC 6 [facility] INJECTION INC [place] [address] ANKITA LUCIANO TROPONIN 6 [facility] QUANTITAT INC INC [place] BLOOD 64028 ANKITA LUCIANO COUNT 6 [facility] COMPLETE INC INC AUTO&AUTO DIFRNTL WBC ECG 31327 [facility]OUT[facility] 6 ANTONY ANTONY ECG W/LEAST 12 LDS I&R ONLY CREATINE 07413 ANKITA LUCIANO KINASE MB 6 [facility] FRACTION INC INC ONLY CREATINE 44872 ANKITA LUCIANO KINASE 6 [facility] TOTAL INC INC CYANOCOBA 50697 ANKITA LUCIANO PRASANNA 5 [facility] VITAMIN INC INC B-[address] [place] [address] ANKITA LUCIANO FOLIC 5 [facility] ACID INC INC SERUM COLLECTIO 72602 ANKITA LUCIANO N VENOUS 5 [facility] BLOOD INC INC VENIPUNCT URE BLOOD 66695 ANKITA LUCIANO COUNT 5 [facility] COMPLETE INC INC AUTO&AUTO DIFRNTL WBC 25 90433 ANKITA LUCIANO HYDROXY 5 [facility] INCLUDES INC INC FRACTIONS IF PERFORMED COMPREHEN 40554 ANKITA LUCIANO SIVE 5 [facility] [place] [address] ANKITA LUCIANO THYROXINE 5 [facility] [place] [address] ANKITA LUCIANO THYROID 5 [facility] STIMULATI [place] [address] [facility]IP[facility] PICKLESIM SURG 5 [facility] PATHOLOGY DUBILIER GROSS&MAREK ROSCOPIC EXAM ANESTHESI 44585 [facility] 5 ANESTH SHE OF THE DELIVERY BLUE ONLY 09645 JORDANA COPPOLA DELIVERY 5 CRUZ ROBERTS WANDA ONLY W/POSTPAR LIZETH CARE 44820 [facility] VICKIE TOD DELIVERY 5 PHYSICIAN ONLY S GROUP OTH 6639 ANKITA LUCIANO BILATERAL 5 [facility] INC INC DESTRUC/O CCLUSION FALLOPIAN TUBES LOW 741 ANKITA LUCIANO CERVICAL 5 [facility] INC INC SECTION 84778 ANKITA LUCIANO NONSTRESS 5 [facility] TEST INC INC EVAL C/V 87425 ANKITA LUCIANO AMNIOTIC 5 [facility] FLUID INC INC PROTEIN QUAL EA SPECIMEN 98994 [facility] NONSTRESS 5 PHYSICIAN ALEX TEST S GROUP 46664 JORDANA COPPOLA NONSTRESS 5 [facility] ROBERT[facility] WANDA TEST COLLECTIO 34469 ANKITA LUCIANO N VENOUS 5 [facility] BLOOD INC INC VENIPUNCT URE URNLS DIP 21972 ANKITA ANKITA 5 [facility] STICK/TAB INC INC LET REAGENT AUTO MICROSCOP Y THERAPEUT 20822 ANKITA LUCIANO IC 5 [facility] PROPHYLAC INC INC TIC/DX INJECTION SUBQ/IM 61306 JORDANA COPPOLA NONSTRESS 5 [facility]ERT[facility] WANDA TEST URNLS DIP 85624 ANKITA LUCIANO 5 [facility] STICK/TAB INC [place] [address] ANKITA LUCIANO INFUSION 5 [facility] THERAPY/P INC INC ROPHYLAXI S /DX 1ST [place] 1 [place] [address] ANKITA LUCIANO INFUSION 5 [facility] THERAPY/P INC INC ROPHYLAXI S /DX 1ST TO 1 HR [address]491 [facility] NONSTRESS 5 PHYSICIAN ALEX TEST S GROUP URNLS DIP 07330 ANKITA LUCIANO 5 [facility] STICK/TAB INC INC [place]ENT [place]CROSCOP Y 36111 ANKITA LUCIANO NONSTRESS 5 [facility] TEST INC INC CULTURE 37220 ANKITA LUCIANO BACTERIAL 5 [facility] INC INC QUANTTATI VE COLONY COUNT URINE CUL 08635 JORDANA COPPOLA PRSMPTV 5 [facility]ERT[facility] WANDA PTHGNC ORGANISM SCRN W/COLONY ESTIMJ PARTICLE 46925 ANKITA LUCIANO AGGLUTINA 5 [facility] TION INC INC SCREEN EACH ANTIBODY THERAPEUT 44533 ANKITA LUCIANO IC 5 [facility] PROPHYLAC INC INC TIC/DX INJECTION SUBQ/IM CULTURE 82402 ANKITA LUCIANO BACTERIAL 5 [facility] INC INC QUANTTATI VE COLONY COUNT URINE 20755 JORDANA COPPOLA NONSTRESS 5 [facility] WANDA TEST URNLS DIP 17632 ANKITA LUCIANO 5 [facility] STICK/TAB INC INC LET REAGENT AUTO MICROSCOP Y GLUCOSE 46547 ANKITA LUCIANO QUANTITAT 5 [facility] [place] BLOOD INC INC XCPT REAGENT STRIP COLLECTIO 53703 ANKITA LUCIANO N VENOUS 5 [facility] BLOOD INC INC VENIPUNCT URE URNLS DIP 66899 ANKITA LUCIANO 5 [facility] STICK/TAB INC INC LET REAGENT AUTO MICROSCOP Y 40570 JORDANA COPPOLA NONSTRESS 5 [facility] TEST CULTURE 72285 ANKITA LUCIANO BACTERIAL 5 [facility] INC INC [place] [address] ANKITA LUCIANO INFUSION 5 [facility] HYDRATION INC INC INITIAL 31 MIN-[place] [address] ANKITA LUCIANO INFUSION 5 [facility] HYDRATION INC INC EACH ADDITIONA L HOUR EVAL C/V 86336 ANKITA LUCIANO AMNIOTIC 5 [facility] FLUID INC INC PROTEIN QUAL EA SPECIMEN EVAL C/V 05328 ANKITA ANKITA AMNIOTIC 5 [facility] FLUID INC INC PROTEIN QUAL EA SPECIMEN THERAPEUT 65792 ANKITA LUCIANO IC 5 [facility] PROPHYLAC INC INC TIC/DX INJECTION SUBQ/IM 75148 JORDANA COPPOLA NONSTRESS 5 [facility] [place] TEST CULTURE 98496 ANKITA LUCIANO BACTERIAL 5 [facility] INC INC QUANTTATI VE COLONY COUNT URINE URNLS DIP 64217 ANKITA LUCIANO 5 [facility] STICK/TAB INC INC LET REAGENT AUTO MICROSCOP Y FTL 44254 ANKITA LUCIANO FIBRONECT 5 [facility] IN INC INC CERVICOVA G SECRETION S SEMI-ELMER TOBACCO 38643 ANKITA LUCIANO USE 5 [facility] CESSATION INC INC INTERMEDI ATE 3-10 MINUTES 02500 ANKITA LUCIANO NONSTRESS 5 [facility] TEST INC INC THERAPEUT 72671 ANKITA LUCIANO IC 5 [facility] PROPHYLAC INC INC TIC/DX INJECTION SUBQ/IM 37590 JORDANA COPPOLA NONSTRESS 5 [facility] TEST CULTURE 58689 ANKITA LUCIANO BACTERIAL 5 [facility] INC INC QUANTTATI VE COLONY COUNT URINE URNLS DIP 21770 ANKITA LUCIANO 5 [facility] STICK/TAB INC INC LET REAGENT AUTO MICROSCOP Y COLLECTIO 77861 ANKITA LUCIANO N VENOUS 4 [facility] BLOOD INC INC VENIPUNCT URE BLOOD 24467 ANKITA LUCIANO TYPING 4 [facility] SEROLOGIC INC INC RH (D) INJECTION J2790 ANKITA LUCIANO RHO D IG 4 [facility] HUMAN INC INC FULL DOSE 300 MCG THERAPEUT 92128 ANKITA LUCIANO IC 4 [facility] PROPHYLAC INC INC TIC/DX INJECTION SUBQ/IM ANTIBODY 71641 ANKITA ANKITA SCREEN 4 [facility] RBC EACH INC INC SERUM TECHNIQUE BLOOD 26445 ANKITA LUCIANO TYPING 4 [facility] SEROLOGIC INC INC ABO 50312 JORDANA COPPOLA NONSTRESS 4 [facility] WANDA TEST 32922 [facility] RAFAT NONSTRESS 4 PHYSICIAN ALEX TEST S GROUP URNLS DIP 34297 ANKITA LUCIANO 4 [facility] STICK/TAB INC INC LET REAGENT AUTO MICROSCOP Y FTL 20668 ANKITA LUCIANO FIBRONECT 4 [facility] IN INC INC CERVICOVA G SECRETION S SEMI-ELMER IAADI 24145 ANKITA LUCIANO INFLUENZA 4 [facility] B VIRUS INC INC IAADI 92171 ANKITA LUCIANO INFFLUENZ 4 [facility] A A VIRUS INC INC US PREG 06671 CRUZ COPPOLA UTERUS 4 WANDA WANDA AFTER 1ST TRIMEST / [place] [address] ANKITA LUCIANO ESTRIOL 4 [facility] INC INC ALPHA-FET 62982 ANKITA LUCIANO OPROTEIN 4 [facility] SERUM INC INC GONADOTRO 02952 ANKITA LUCIANO PIN 4 [facility] CHORIONIC INC INC QUANTITAT ELKE RADIOLOGI 00328 [facility] ABIGAIL C 4 MEDICAL GRACE EXAMINATI IMAGING ON KNEE 3 ASS VIEWS CRTCHS E0114 BREG INC. BREG INC. UNDARM 4 OTH THAN WOOD PAIR PAD TIP&[place] [address] JORDANA COPPOLA TRANSVAGI 4 [facility] NAL IADNA 28835 BIO BIO TRICHOMON 4 REFERNCE REFERNCE LABORATOR LABORATOR VAGINALIS IES IES AMPLIFIED PROBE TECH IAADIADOO 18944 JORDANA R JORDANA R 4 [facility] COP[facility] MD TRICHOMON VAGINALIS IADNA 74142 BIO BIO CHLAMYDIA 4 REFERNCE REFERNCE LABORATOR LABORATOR TRACHOMAT IES IES IS AMPLIFIED PROBE TQ IADNA 28926 JORDANA COPPOLA HERPES 4 [facility] SIMPLX VIRUS DIRECT PROBE TQ IADNA 38418 BIO BIO VIRAJ 4 REFERNCE REFERNCE SPECIES LABORATOR LABORATOR AMPLIFIED IES IES PROBE TQ IADNA 87717 BIO BIO GARDNEREL 4 REFERNCE REFERNCE LA LABORATOR LABORATOR VAGINALIS IES IES AMPLIFIED PROBE TQ CYTP C/V 27206 BIO BIO AUTO THIN 4 REFERNCE REFERNCE LYR LABORATOR LABORATOR PREPJ SCR IES IES MNL RESCR PHYS CULTURE 06508 JORDANA COPPOLA CHLAMYDIA 4 [facility]DA ANY SOURCE IADNA 91817 BIO BIO HERPES 4 REFERNCE REFERNCE SOMPLX LABORATOR LABORATOR VIRUS IES IES AMPLIFIED PROBE TQ IADNA 91392 JORDANA COPPOLA NEISSERIA 4 [facility]ERT[facility] WANDA GONORRHOE AE DIRECT PROBE TQ IADNA 90028 BIO BIO NEISSERIA 4 REFERNCE REFERNCE LABORATOR LABORATOR GONORRHOE IES IES AE AMPLIFIED PROBE TQ IADNA NOS 13703 BIO BIO 4 REFERNCE REFERNCE AMPLIFIED LABORATOR LABORATOR PROBE TQ IES IES EACH ORGANISM URINLS 04986 JORDANA COPPOLA DIP 4 [facility] WANDA STICK/TAB LET REAGNT NON-AUTO MICRSCPY URINE 80430 JORDANA COPPOLA 4 [facility] WANDA TEST VISUAL COLOR CMPRSN METHS URINE 33923 PENDELETO PENDELETO 4 N CO N CO TEST [facility] VISUAL CENTER CENTER COLOR CMPRSN METHS LEVEL III 40444 PATHOLOGY WANG SURG 3 & MANUEL PATHOLOGY CYTOLOGY LAB GROSS&MAREK ROSCOPIC EXAM LAPS SURG 34427 SIVAKUMAR SHAVER JR 3 OMAR OMAR CHOLECYST ECTOMY W/[place] [address] ANKITA HARRISON INFUSION 3 [facility] THERAPY INC INC PROPHYLAX IS/DX EA HOUR LOCM Q9967 ANKITA ANKITA 300-399 3 [facility] MG/ML INC INC IODINE CONCENTRA TION PER ML INJECTION J2405 ANKITA LUCIANO 3 [facility] ONDANSETR INC INC ON HCL PER 1 MG X-RAY 84859 [facility] [place] ABIGAIL URINARY 3 MEDICAL GRACE TRACT IMAGING EXAM WITH ASS CONTRAST MATERIAL URETHROCY 39245 ANKITA LUCIANO STOGRAPHY 3 [facility] INC INC RETROGRAD E RS&I ANES 69240 COMMUNITY PATHAK OTILIA INTRAPERI 3 ANESTH TONEAL OF THE UPPER BLUE ABDOMEN W/LAPS NOS HEPATIC 02633 ANKITA LUCIANO FUNCTION 3 [facility] PANEL INC INC COMPREHEN 84972 ANKITA LUCIANO SIVE 3 [facility] METABOLIC INC INC PANEL BLOOD 75944 ANKITA LUCIANO COUNT 3 [facility] COMPLETE INC INC AUTO&[place] [address] [facility] ABIGAIL ABDOMINAL 3 MEDICAL GRACE REAL IMAGING TIME [place] W/[place] [address] [facility] ABIGAIL ABDOMINAL 3 MEDICAL GRACE REAL IMAGING TIME ASS W/IMAGE LIMITED RADEX ABD 85297 [facility] [place] ABIGAIL COMPL 3 MEDICAL GRACE AQT ABD IMAGING W/S/E/D ASS VIEWS 1 [facility] 24736 JORDANA COPPOLA DISCHARGE 3 [facility] WANDA DAY MANAGEMEN T 30 MIN/< SBSQ 97602 [facility] 3 CRUZ ROBERTS WANDA CARE/DAY 15 MINUTES SBSQ 00520 [facility] 3 CRUZ ROBERTS WANDA CARE/DAY 15 MINUTES ANESTHESI 79585 COMMUNITY PATHAK [place] A 3 ANESTH OF [place] [address] [facility] JACY MAREK SURG 3 [facility] & PATHOLOGY BRIAN GROSS&MAREK ROSCOPIC EXAM US PREG 03714 [facility] ABIGAIL UTERUS 3 MEDICAL GRACE REAL TIME IMAGING W/IMAGE ASS DCMTN TRANSVAG 35961 JORDANA COPPOLA BIOPHYSIC 3 CRUZ MUÑOZ AL PROFILE NON-STRES S TESTING 57415 SIVAKUMAR JR ALLLAISHA JR DELIVERY 3 OMAR OMAR ONLY LOW 741 ANKITA LUCIANO CERVICAL 3 [facility] INC INC SECTION 88248 JORDANA COPPOLA NONSTRESS 3 CRUZ MUÑOZ TEST 20540 JORDANA COPPOLA NONSTRESS 3 CRUZ ROBERTS WANDA TEST PARTICLE 51456 ANKITA LUCIANO AGGLUTINA 3 [facility] TION INC INC SCREEN EACH ANTIBODY CUL 65842 JORDANA COPPOLA PRSMPTV 3 CRUZ MUÑOZ PTHGNC ORGANISM SCRN W/COLONY ESTIMJ 92672 JORDANA COPPOLA NONSTRESS 3 CRUZ ROBERTS WANDA TEST URNLS DIP 79469 ANKITA LUCIANO 3 [facility] STICK/TAB INC INC LET RGNT NON-AUTO W/O MICRSCP 31863 JORDANA COPPOLA NONSTRESS 3 CRUZ ROBERTS WANDA TEST BLOOD 44127 ANKITA LUCIANO COUNT 3 [facility] COMPLETE INC INC AUTO&AUTO DIFRNTL WBC BLOOD 36923 ANKITA LUCIANO TYPING 3 [facility] SEROLOGIC INC INC RH (D) INJECTION J2790 ANKITA LUCIANO RHO D IG 3 [facility] HUMAN INC INC FULL DOSE 300 MCG ANTIBODY 89483 ANKITA LUCIANO SCREEN 3 [facility] RBC EACH INC INC SERUM TECHNIQUE BLOOD 17075 ANKITA LUCIANO TYPING 3 [facility] SEROLOGIC INC INC ABO THERAPEUT 05595 ANKITA LUCIANO IC 3 [facility] PROPHYLAC INC INC TIC/DX INJECTION SUBQ/IM GLUCOSE 45388 ANKITA LUCIANO POST 3 [facility] GLUCOSE INC [place] DOSE US PREG 07393 JORDANA COPPOLA UTERUS 3 CRUZ MUÑOZ AFTER 1ST TRIMEST GESTATION COLPOSCOP 91679 JORDANA Kelley HARPEL Y CERVIX 3 CRUZ MUÑOZ BX CERVIX & [place]OCRV [place] PREG 25032 JORDANA MEZAL UTERUS 3 CRUZ ROBERTS WANDA AFTER [place]ST [place] [address] ANKITA LUCIANO ABDOMINAL 3 [facility] REAL INC INC TIME W/[place] [address] ANKITA LUCIANO ESTRIOL 3 [facility] INC INC ALPHA-FET 13657 ANKITA LUCIANO OPROTEIN 3 [facility] SERUM INC INC GONADOTRO 71201 ANKITA LUCIANO PIN 3 [facility] CHORIONIC INC INC QUANTITAT ELKE GONADOTRO 83360 ANKITA LUCIANO PIN 3 [facility] CHORIONIC INC INC QUANTITAT [place] BLOOD 12448 ANKITA LUCIANO COUNT 3 [facility] COMPLETE INC INC AUTO&AUTO DIFRNTL [place]BC [place] PREG 91927 ANKITA LUCIANO UTERUS 3 [facility] REAL TIME INC INC W/IMAGE DCMTN TRANSVAG URINE 26151 ANKITA ULCIANO 3 [facility] TEST INC INC VISUAL COLOR CMPRSN METHS COLPOSCOP 83013 [facility] HARPEL Y CERVIX 3 PHYSICIAN WANDA BX CERVIX GROUP & PCC ENDOCRV CURRETAGE US PREG 80342 [facility] HAR[facility]L UTERUS 3 PHYSICIAN WANDA REAL TIME GROUP W/IMAGE PCC DCMTN TRANSVAG IAADIADOO 86014 [facility] HARPEL 3 PHYSICIAN WANDA TRICHOMON GROUP PCC VAGINALIS CULTURE 53865 [facility] CHLAMYDIA 3 PHYSICIAN PHYSICIAN ANY GROUP GROUP SOURCE PCC PCC IADNA 22088 [facility] HARPEL NEISSERIA 3 PHYSICIAN WANDA GROUP GONORRHOE PCC AE DIRECT PROBE TQ IADNA 07766 [facility] HARPEL HERPES 3 PHYSICIAN WANDA SIMPLX GROUP VIRUS PCC DIRECT PROBE TQ URINE 46078 [facility] DEPT HLTH DEPT VISUAL VASILIY VASILIY COLOR CMPRSN METHS LOW 74.1 Jordana Mccullough CERVICAL [place] Encounters Encounter Start End Date Code Location Performer Type Date OFFICE 14727 [facility] DARREN BALLESTEROS 7 7 PHYSICIAN T VISIT S GROUP 25 MINUTES EMERGENCY 02955 JULIAN DEMPSEY 7 7 PHYSICIAN [facility]PART[facility] T VISIT HIGH/URGE NT SEVERITY EMERGENCY 48198 ANKITA 6 6 [facility] DEPARTMEN INC T VISIT MODERATE SEVERITY EMERGENCY 30088 JULIAN HICKS 6 6 PHYSICIAN MAREK DEPARTMEN S, [facility]STITUT[facility] T VISIT HIGH/URGE NT SEVERITY HOSPITAL ANKITA - 6 6 [facility] OUTPATIEN [facility] T EMERGENCY 97041 JULIAN DEMPSEY 6 [facility] VISIT MODERATE SEVERITY HOSPITAL ANKITA - 6 6 [facility] EMERGENCY 49009 ANKITA 6 6 [facility] DEPARTMEN [facility] T VISIT LOW/MODER SEVERITY EMERGENCY 49073 JULIAN ATKINS [facility] 6 [facility] T VISIT HIGH/URGE NT SEVERITY HOSPITAL ANKITA [facility] 6 6 [facility] ANKITA - 6 6 [facility] T EMERGENCY 09211 ANKITA 6 6 [facility] T VISIT HIGH/URGE NT SEVERITY EMERGENCY 26428 JULIAN KRAMER DEPT 6 6 PHYSICIAN U DIANN VISIT S, THE REHABILITATION INSTITUTEC HIGH SEVERITY& THREAT FUNJ OFFICE 26130 [facility] LEONA BALLESTEROS 5 5 PHYSICIAN MAREK T VISIT S GROUP 10 MINUTES EMERGENCY 98098 JULIAN HICKS 5 5 PHYSICIAN MAREK DEPARTMEN S, [facility]ATION INSTITUT[facility] T VISIT MODERATE SEVERITY HOSPITAL ANKITA - 5 5 [facility] OFFICE 17509 JORDANA COPPOLA OUTPATIEN 5 5 CRUZ MUÑOZ T VISIT 15 MINUTES HOSPITAL ANKITA - 5 5 [facility] INPATIENT INC OFFICE 45349 JORDANA COPPOLA OUTPATIEN 5 5 CRUZ MUÑOZ T VISIT 15 MINUTES [facility] - [facility] - [facility] T OFFICE 33030 JORDANA COPPOLA OUTPATIEN 5 5 CRUZ MUÑOZ T VISIT 15 MINUTES HOSPITAL ANKITA - 5 5 [facility] ANKITA - 5 5 [facility] ANKITA - 5 5 [facility] T OFFICE 64397 JORDANA COPPOLA OUTPATIEN 5 5 CRUZ MUÑOZ T VISIT 15 MINUTES HOSPITAL ANKITA - 5 5 [facility] ANKITA - 5 5 [facility] INC T OFFICE 18758 JORDANA COPPOLA OUTPATIEN 5 5 CRUZ MUÑOZ T VISIT 15 MINUTES HOSPITAL ANKITA - 5 5 [facility] ANKITA - 5 5 [facility]PATI[facility] INC T OFFICE 82588 JORDANA COPPOLA OUTPATIEN 5 5 CRUZ MUÑOZ T VISIT 15 MINUTES HOSPITAL ANKITA - 5 5 [facility] ANKITA - 4 4 [facility] INC T OFFICE 05476 JORDANA COPPOLA OUTPATIEN 4 4 CRUZ MUÑOZ T VISIT 15 MINUTES HOSPITAL ANKITA - 4 4 [facility] T OFFICE 97273 HARPEL HARPEL OUTPATIEN 4 4 WANDA WANDA T VISIT 15 MINUTES EMERGENCY 32359 ALFARIS ALFARIS 4 4 [facility] DEPARTMEN T VISIT MODERATE SEVERITY EMERGENCY 59229 ANKITA 4 4 [facility] DEPARTMEN INC T VISIT LOW/MODER SEVERITY HOSPITAL ANKITA - 4 4 [facility] T OFFICE 66729 HARPEL HARPEL OUTPATIEN 4 4 WANDA WANDA T VISIT 15 MINUTES OFFICE 49645 HARPE[facility]PEL OUTPATIEN 4 4 WANDA WANDA T VISIT 15 MINUTES HOSPITAL ANKITA - 4 4 [facility] INC T EMERGENCY 30197 [facility] HICKS 4 4 [facility] DEPARTMEN T VISIT MODERATE SEVERITY OFFICE 93703 HARPEL HARPEL OUTPATIEN 4 4 WANDA WANDA T VISIT 15 MINUTES OFFICE 19105 JORDANA Kelley HARPEL OUTPATIEN 4 4 CRUZ ROBERTS WANDA T VISIT 15 MINUTES EMERGENCY 92006 JESSIE ROMAN 4 4 [facility] T VISIT HIGH/URGE NT SEVERITY OFFICE 21316 JORDANA AMANDAPEL OUTPATIEN 4 4 CRUZ ROBERTS WANDA T VISIT 15 MINUTES PERIODIC 23656 HARPEL HARPEL PREVENTIV 4 4 WANDA WANDA E MED EST PATIENT 18-39 YRS OFFICE 25361 [facility] PENDELETO OUTPATIEN 4 4 N CO N CO T VISIT [place] [address] CENTER CENTER MINUTES Emergency JACK Allred MD (ER) 4 17:40 4 18:59 [facility] OFFICE 47557 JORDANA Kelley HARPEL OUTPATIEN 3 3 CRUZ MUÑOZ T VISIT 15 MINUTES HOSPITAL ANKITA - 3 3 [facility] T Emergency JACK Hicks MD (ER) 3 23:50 3 01:24 [facility] EMERGENCY 60532 BEBETO HICKS DEPT 3 3 EMERGENCY [facility] VISIT SERVICES HIGH SEVERITY& THREAT [facility] ANKITA - 3 3 [facility] OUTPATIEN INC T OFFICE 66742 ALLRAN JR ALLRAN JR CONSULTAT 3 3 OMAR OMAR ION NEW/ESTAB PATIENT 60 MIN Emergency JACK HERRERA MD (ER) 3 11:16 3 13:23 [facility] Emergency JACK HERRERA MD (ER) 3 09:50 3 12:24 [facility] OFFICE 71965 JORDANA COPPOLA OUTPATIEN 3 3 CRUZ ROBERTS WANDA T VISIT 15 MINUTES Inpatient ERNA Coppola MD (IN) 3 15:32 3 10:30 [facility] R. OFFICE 73306 JORDANA COPPOLA OUTPATIEN 3 3 CRUZ ROBERTS WANDA T VISIT 15 MINUTES HOSPITAL ANKITA - 3 3 [facility] INC OFFICE 55117 JORDANA MEZAL OUTPATIEN 3 3 CRUZ ROBERTS WANDA T VISIT 15 MINUTES OFFICE 87771 JORDANA AMANDAPEL OUTPATIEN 3 3 CRUZ ROBERTS WANDA T VISIT 15 MINUTES OFFICE 71824 JORDANA COPPOLA OUTPATIEN 3 3 CRUZ ROBERTS WANDA T VISIT 15 MINUTES OFFICE 66063 JORDANA MEZAL OUTPATIEN 3 3 CRUZ MUÑOZ T VISIT 15 MINUTES HOSPITAL ANKITA - 3 3 [facility] OUTPATIEN INC T OFFICE 16942 JORDANA Kelley HARPEL OUTPATIEN 3 3 CRUZ MUÑOZ T VISIT [address] [facility] MODERATE SEVERITY OFFICE 23878 JORDANA Kelley HARPEL OUTPATIEN 3 3 CRUZ ROBERTS WANDA T VISIT 15 MINUTES OFFICE 39589 JORDANA Kelley HARPEL OUTPATIEN 3 3 CRUZ MUÑOZ T VISIT 15 MINUTES HOSPITAL ANKITA - 3 3 [facility] OUTPATIEN INC T OFFICE 41608 JORDANA Kelley HARPEL OUTPATIEN 3 3 CRUZ MUÑOZ T VISIT 15 MINUTES OFFICE 87375 JORDANA Kelley HARPEL OUTPATIEN 3 3 CRUZ ROBERTS WANDA T VISIT 15 MINUTES OFFICE 53112 JORDANA Kelley HARPEL OUTPATIEN 3 3 CRUZ MUÑOZ T VISIT 15 MINUTES HOSPITAL ANKITA - 3 3 [facility] INC T OFFICE 91328 JORDANA Kelley HARPEL OUTPATIEN 3 3 CRUZ MUÑOZ T VISIT 15 MINUTES OFFICE 26522 JORDANA AMANDAPEL OUTPATIEN 3 3 CRUZ MUÑOZ T VISIT 15 MINUTES HOSPITAL ANKITA - 3 3 [facility] OUTPATIEN INC T OFFICE 48310 [facility] HARPEL OUTPATIEN 3 3 PHYSICIAN WANDA T VISIT GROUP 15 PCC MINUTES HOSPITAL ANKITA - 3 3 [facility] OUTPATIEN INC T [facility] ST - 3 3 [facility] OFF[facility] [address] ST OUTPATIEN 3 3 [facility] T VISIT MEDICAL 10 CENTER MINUTES OFFICE 93672 JORDANA COPPOLA OUTPATIEN 3 3 CRUZ MUÑOZ T VISIT 15 MINUTES OFFICE 65250 [facility] SUSANAL OUTPATIEN 3 3 PHYSICIAN WANDA T VISIT GROUP 15 PCC MINUTES Emergency JACK MORALES MD (ER) 3 14:50 3 16:54 [facility] ANKITA - 3 3 [facility] OUTPATIEN INC T EMERGENCY 63318 ANKITA 3 3 [facility] DEPARTMEN INC T VISIT HIGH/URGE NT SEVERITY OFFICE 54257 [facility] VASILIYPEL OUTPATIEN 3 3 PHYSICIAN WANDA T VISIT GROUP 15 PCC MINUTES OFFICE 11053 [facility] SUSANAL OUTPATIEN 3 3 PHYSICIAN WANDA T VISIT GROUP 15 PCC MINUTES INITIAL 22326 [facility] SUSANAL PREVENTIV 3 3 PHYSICIAN WANDA E GROUP MEDICINE PCC NEW PT AGE 18-39YRS OFFICE 31398 [facility] 3 3 [facility] [place] 20 HLTH DEPT HLTH DEPT MINUT[facility] [place] VASILIY
--- OUTSIDE RECORDS SUMMARY | 2017-02-02 09:09 | External Medical Summary Rpt ---
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 Care Termite Treater Name Role Phone ALFARIS MOH, ALFARIS Unavailable [...] [facility] Unavailable Unavailable P[facility], [facility], Unavailable Unavailable [facility] Unavailable Unavailable IM[facility]ING [facility], [facility] Leticia Allred MD, Unavailable Unavailable Leticia Allred MD WANG MANUEL, WANG Unavailable Unavailable MANUEL Sol Hicks MD, Unavailable Unavailable Sol [facility], Unavailable Unavailable [facility], Unavailable Unavailable [facility] Unavailable Unavailable SERVICES, [facility] Unavailable Unavailable [facility], Unavailable Unavailable [facility], [facility] Unavailable Unavailable LAB, [facility] Unavailable Unavailable C[facility], [facility] Unavailable [facility]available CENTER, [facility] ARDEN HAMLIN, Unavailable Unavailable ARDEN SIMPSON BOUBACAR VICKIE TOD, VICKIE TOD Unavailable Unavailable RENUSCH, RENUSCH Unavailable Unavailable RENUSCH YENI, RENUSCH Unavailable Unavailable YENI SADEK MOH, SADEK MOH Unavailable Unavailable SELPH [facility], SELPH SCO Unavailable Unavailable SOTINGEANU DIANN, Unavailable Unavailable SOTINGEANU DIANN TYLER SHE, Unavailable Unavailable TYLER SHE [facility], Unavailable Unavailable [facility] Unavailable Unavailable C[facility], [facility] Unavailable Unavailable [facility] Unavailable Unavailable [facility] Unavailable Unavailable [facility] Unavailable Unavailable DEPT [facility], [facility] Unavailable [facility]available DEPT [facility], [facility] Purpose Continuity of Care Document - 10-06-2012 through 2016 Problems Code Diagnosis DOS Provider Status R05 COUGH 12-30-2016 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[facility] FASCIAL PHYSICIANS, FIBROMATOSI [facility] S M2669 OTHER 04-05-2016 [facility] 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 K115AVQ DISLOCATION 04-05-2016 [facility] OF JAW PHYSICIANS, INITIAL PLLC ENCOUNTER O710SBO SPRAIN 04-05-2016 [facility] LIGAMENTS PHYSICIANS, T-SPINE PLLC INITIAL ENCOUNTER Z720 TOBACCO USE 04-05-2016 [facility] INC Z0100 ENCOUNTER 01-28-2016 [facility] EXAM EYES & GRE VISION W/O ABNORMAL FIND [id number] MIGRAINE 10-10-2015 JULIAN UNS NOT PHYSICIANS, INTRACT W/O PLLC STATUS MIGRAINOSUS R0789 OTHER CHEST 10-10-2015 [facility] PAIN PHYSICIANS, PLLC 96594 OTHER&UNSPE 05-12-2015 [facility] CIFIED DISC PHYSICIANS, DISORDER PLLC CERVICAL REGION 63960 OTHER 04-16-2015 [facility] MALAISE AND [facility] FATIGUE INC 56448 OTHER SIGN 11-01-2014 JORDANA Kelley AND SYMPTOM [place] IN BREAST 49193 BREECH 10-25-2014 [facility]ITY PRESENTATIO ANESTH OF N W/O THE BLUE MENTION VERSION DELIV 13636 PREV C/S 10-25-2014 [facility] DELIV DELIV PHYSICIANS W/WO GROUP MENTION ANTPRTM COND V252 STERILIZATI 10-25-2014 [facility] ON [facility] INC V270 OUTCOME OF 10-25-2014 [facility] DELIVERY PHYSICIANS SINGLE GROUP LIVEBORN V7269 OTHER 10-25-2014 [facility] CL[facility] & EXAMINATION DUBILIER V221 SUPERVISION 10-19-2014 JORDANA Kelley OF OTHER [place] NORMAL 44757 PREMATURE 10-18-2014 [facility] RUPTURE [facility] MEMBRANES INC ANTEPARTUM 46383 OTHER 10-14-2014 JORDANA Kelley THREATENED [facility] [place] LABOR, ANTEPARTUM 44184 EDEMA OR 10-14-2014 [facility] EXCESSIVE [facility] WEIGHT GAIN INC ANTEPARTUM 28321 THREATENED 10-08-2014 [facility] PREMATURE PHYSICIANS LABOR GROUP ANTEPARTUM 25645 OTHER 10-07-2014 [facility] SPECIFED [facility] COMPLICATIO INC N ANTEPARTUM V286 SCREENING 10-05-2014 [facility] OF [facility] STREPTOCOCC INC US B V771 SCREENING 09-27-2014 [facility] FOR [facility] DIABETES INC MELLITUS 7910 PROTEINURIA 09-25-2014 [facility] INC 10211 DECR 09-07-2014 JORDANA COPPOLA MD MGMT MOTH ANTPRTM COND/COMP V285 08-13-2014 [facility] SCREENING [facility] FOR INC ISOIMMUNIZA TION 7840 HEADACHE 07-20-2014 [facility] INC 82803 ABDOMINAL 07-20-2014 [facility] PAIN, [facility] UNSPECIFIED INC SITE 4659 ACUTE URIS 07-10-2014 [facility] OF [facility] UNSPECIFIED INC SITE 7291 UNSPECIFIED 07-10-2014 ALFARIS MOH MYALGIA AND MYOSITIS V2889 OTHER 05-24-2014 [facility] SPECIFIED [facility] INC SCREENING 490 BRONCHITIS 05-13-2014 LEONA MAREK NOT SPECIFIED ACUTE OR CHRONIC 49530 EFFUSION OF 04-15-2014 [facility] 55084 PAIN IN 04-15-2014 [place] JOINT, MEDICAL [facility] 8449 SPRAIN&STRA 04-15-2014 [facility] IN OF UNSPECIFIED SITE OF KNEE&LEG 33999 UNSPECIFIED 04-15-2014 [facility] SITE OF ANKLE SPRAIN AND STRAIN 9597 INJURY 04-15-2014 [place] OTHER&UNSPE MEDICAL CIFIED KNEE IMAGING ASS LEG ANKLE&FOOT E8888 OTHER FALL 04-15-2014 [facility] 6268 OTH D/O 03-23-2014 [facility]DA MENSTRUATIO N&OTH ABN BLEED FE GNT TRACT V704 EXAMINATION 03-23-2014 [facility] FOR [facility] MEDICOLEGAL LABORATORIE REASON S V7231 ROUTINE 03-23-2014 HARPE[facility] WANDA GYNECOLOGIC AL EXAMINATION V7242 03-15-2014 [facility] POSITIVE RESULT 300.00 300.00 09-27-2013 [place] ANXIETY [facility] 305.1 305.1 09-27-2013 [place] TOBACCO USE [facility] 311 311 09-27-2013 [place] DEPRESSIVE [facility] NEC V242 ROUTINE 07-25-2013 JORDANA Kelley [facility] FOLLOW-UP 48300 CALCU 2013 PATHOLOGY & [facility] CYTOLOGY W/OTH LAB CHOLECYST W/O MENTION OBST 15857 CALCU 2013 [place] [facility] MEDICAL W/O MENTION IMAGING ASS CHOLECYST/O BST 23637 ACUTE AND 2013 SIVAKUMAR SIMPSON CHRONIC OMAR CHOLECYSTIT IS 5756 CHOLESTEROL 2013 PATHOLOGY & OSIS OF CYTOLOGY [facility] LAB 575.9 575.9 DIS 06-26-2013 [facility] Hospital NOS V14.8 V14.8 06-26-2013 [facility] HX-DRUG [facility] 5759 UNSPECIFIED 06-25-2013 [facility] OF SERVICES GALLBLADDER 34421 ABDOMINAL 06-25-2013 [facility] PAIN RIGHT EMERGENCY UPPER SERVICES QUADRANT 01109 CALCU BD 06-20-2013 SIVAKUMAR SIMPSON W/OTH OMAR CHOLECYST W/O MENTION OBSTRUCTION 5758 OTHER 06-20-2013 SIVAKUMAR SIMPSON SPECIFIED OMAR DISORDER OF [place] 493.90 493.90 06-19-2013 [place] ASTHMA, [facility] UNSPECIFIED Hospital 574.20 574.20 06-19-2013 [facility] CHOLELITHIA [facility] SIS NOS Hospital V2502 GENERAL 06-06-2013 JORDANA COPPOLA MD INITIATION OT CONTRACEPT MEASURES V2509 OT GENERAL 06-06-2013 JORDANA COPPOLA MD CNSL&ADVICE CONTRACEPT MANAGEMENT V5832 ENCOUNTER 06-06-2013 JORDANA Kelley FOR REMOVAL [place] OF SUTURES 285.9 285.9 06-02-2013 [place] ANEMIA NOS [facility] 641.21 641.21 GWEN 06-02-2013 [facility] V 19865 PREMATURE 06-02-2013 JORDANA COPPOLA MD OF [place] WITH DELIVERY 652.21 652.21 06-02-2013 [facility] 52946 C/S DELIV 06-02-2013 JORDANA Kelley W/O INDICAT [place] DELIV W/WO ANTPRTM COND V27.0 V27.0 06-02-2013 Ank[facility] DELIVER-SIN [facility] LIVEBORN 2859 UNSPECIFIED 05-30-2013 [facility] ANEMIA [facility] INC 89913 UNSPECIFIED 05-30-2013 [place] ANTEPARTUM MEDICAL HEMORRHAGE IMAGING ASS ANTEPARTUM 95065 BREECH 05-30-2013 [place] PRESENTATIO MEDICAL N W/O IMAGING ASS MENTION VERSION ANTPRTM 28978 OT 05-30-2013 [facility] PLACENTAL CLARY & CONDS DUBILIER AFFECT MANAGEMENT MOTH DELIV 4660 ACUTE 05-10-2013 [facility] 83309 OT CURRENT 04-30-2013 JORDANA COPPOLA MD CLASSIFIABL E ELSW ANTPRTM 9222 CONTUSION 04-30-2013 JORDANA LOTT MD ABDOMINAL WALL 30937 DYSPLASIA 02-20-2013 JORDANA ESTRADA CERVIX [facility] [place] UNSPECIFIED 74878 GALLSTONE 01-25-2013 [facility] ILEUS [facility] INC V222 12-18-2012 [facility] 15330 THREATENED 11-12-2012 [facility] UNSPECIFIED SERVICES EPISODE CARE 04548 THREATENED 11-12-2012 [facility] , [facility] ANTEPARTUM INC 29379 UNSPEC 11-12-2012 [facility] MEDICAL EARLY IMAGING ASS ANTEPARTUM 28540 OT CURRENT 11-12-2012 [facility] MATERNAL EMERGENCY CCE-COMPL SERVICES PG CB/PP-UNS EOC 77389 OTH 10-27-2012 [facility] PLACENTAL PHYSICIAN CONDS GROUP PCC AFFECT MGMT MOTH ANTPRTM 50094 OBESITY, 10-17-2012 [facility] UNSPECIFIED PHYSICIAN GROUP PCC 6260 ABSENCE OF 10-17-2012 [facility] MENSTRUATIO PHYSICIAN N GROUP PCC V2689 OTHER 10-06-2012 [facility] SPECIFIED DISTRICT PROCREATIVE [facility] DEPT MANAGEMENT VASILIY G43.909 MIGRAINE, UNSP, NOT [...] BE 68 04 05 15 5 00 [facility] NZ 38 -2 -1 .0 00 L- ti ON 20 00 07 MA ve AT 24 20 20 48 RT AT 70 17 17 45 E 1 08 PH 10 AR 0 MA MG CY CA #5 PS 91 UL E UT 00 04 05 10 5 00 [facility] ED 14 -2 -1 .0 00 L- ti NI 39 6- 9- 00 07 MA ve SO 73 20 20 48 RT NE 80 17 17 45 5 07 PH 20 AR MA MG CY TA #5 BL 91 ET AZ 59 04 05 6. 5 00 [facility] IT 76 -2 -1 00 00 L- [...] 03 03 28 14 00 WA Ac UT 16 -0 -3 .0 00 L- ti [...] 47 RT ZA 89 17 17 44 UT 0 33 PH IN AR E MA 10 CY MG #5 91 TA BL ET ME 59 03 03 21 6 00 WA Ac TH 74 -0 -3 .0 00 L- ti YL 60 6- 1- 00 07 MA ve UT 00 20 20 47 RT ED 10 [...] 1 14 PH CE AR TA MA DC CY NO PH #5 EN 91 5- 32 5 UT 59 02 03 27 7 00 WA [...] 47 RT ZA 89 17 17 25 UT 0 31 PH IN AR E MA 10 CY MG #5 91 TA BL ET HY 00 02 03 [address] 40 -2 -2 .0 00 L- ti OC 60 3- 4- 00 02 MA ve OD 12 20 20 23 RT ON 30 17 17 92 -A 1 64 PH CE AR TA MA DC CY NO PH #5 EN 91 5- [...] ti 4 ve MG /2 ML AL UT 00 10 0 No OM 64 -2 [...] Ac MG ti /M ve L AL UT 00 10 0 No OM 64 -1 [...] SerPl EIA 3rd IS-aCnc (11-12-2012 15:20) B-HCG 939472. complet SerPl 013 1 ed EIA 3rd [...] Procedure DOS Code Location Performer Comment RADIOLOGI 64523 DESTINEY ALVARADO C EXAM 7 MEDICAL CHEST 2 IMAGING VIEWS ASS FRONTAL&L ATERAL INJECTION J1040 [facility] 7 PHYSICIAN PHYSICIAN METHYLPRE S GROUP S GROUP DNISOLONE ACETATE 80 MG THERAPEUT 51203 [facility] STONE IC 7 PHYSICIAN PROPHYLAC S GROUP TIC/DX INJECTION SUBQ/IM RADEX 78458 [facility] SPINE 7 PHYSICIAN LUMBOSACR S, PLLC AL MINIMUM 4 VIEWS THERAPEUT 90025 [facility] LUCIANO IC 6 [facility] PROPHYLAC INC INC TIC/DX INJECTION SUBQ/IM OPHTH 05422 [facility] 6 GRE GRE XM&EVAL COMPRE NEW PT 1/> VST ECG 73028 [facility] LUCIANO ROUTINE 6 [facility] ECG INC INC W/LEAST 12 LDS TRCG ONLY W/O I&R THER 13901 ANKITA LUCIANO PROPH/DX 6 [facility] NJX IV INC INC PUSH SINGLE/1S T SBST/DRUG COMPREHEN 10049 ANKITA LUCIANO SIVE 6 [facility] METABOLIC INC INC PANEL THERAPEUT 24404 ANKITA LUCIANO IC 6 [facility] INJECTION INC [place] [address] ANKITA LUCIANO TROPONIN 6 [facility] QUANTITAT INC INC [place]KE BLOOD 20395 ANKITA LUCIANO COUNT 6 [facility] COMPLETE INC INC AUTO&AUTO DIFRNTL WBC ECG 64297 [facility] ROUTINE 6 ANTONY ANTONY ECG W/LEAST 12 LDS I&R ONLY CREATINE 37646 ANKITA LUCIANO KINASE MB 6 [facility] H[facility] FRACTION INC INC ONLY CREATINE 11288 ANKITA LUCIANO KINASE 6 [facility] TOTAL INC INC CYANOCOBA 35056 ANKITA LUCIANO PRASANNA 5 [facility] VITAMIN INC INC B-[address] [place] [address] ANKITA LUCIANO FOLIC 5 [facility] ACID INC INC SERUM COLLECTIO 23952 ANKITA LUCIANO N VENOUS 5 [facility] BLOOD INC INC VENIPUNCT URE BLOOD 15107 ANKITA LUCIANO COUNT 5 [facility] COMPLETE INC INC AUTO&AUTO DIFRNTL WBC 25 67143 ANKITA LUCIANO HYDROXY 5 [facility] INCLUDES INC INC FRACTIONS IF PERFORMED COMPREHEN 85128 ANKITA LUCIANO SIVE 5 [facility] [address] ANKITA LUCIANO THYROXINE 5 [facility] [place] [address] ANKITA LUCIANO THYROID 5 [facility] STIMUL[place] [address] [facility]ICKLES[facility] SURG 5 CLARY & ER COUNT INCLUDES [facility] PATHOLOGY DUBILIER GROSS&MAREK ROSCOPIC EXAM ANESTHESI 77166 [facility] 5 ANESTH SHE OF THE DELIVERY BLUE ONLY 81440 JORDANA COPPOLA DELIVERY 5 [place] WANDA ONLY W/POSTPAR LIZETH CARE 35617 [facility] VICKIE TOD DELIVERY 5 PHYSICIAN ONLY S GROUP OTH 6639 ANKITA LUCIANO BILATERAL 5 [facility] INC INC DESTRUC/O CCLUSION FALLOPIAN TUBES LOW 741 ANKITA LUCAINO CERVICAL 5 [facility] INC INC SECTION 54739 ANKITA LUCIANO NONSTRESS 5 [facility] TEST INC INC EVAL C/V 28143 ANKITA LUCIANO AMNIOTIC 5 [facility] FLUID INC INC PROTEIN QUAL EA SPECIMEN 51902 [facility] NONSTRESS 5 PHYSICIAN ALEX TEST S GROUP 98330 JORDANA COPPOLA NONSTRESS 5 [place] WANDA TEST COLLECTIO 51843 ANKITA LUCIANO N VENOUS 5 [facility] BLOOD INC INC VENIPUNCT URE URNLS DIP 64031 ANKITA ANKITA 5 [facility] STICK/TAB INC INC LET REAGENT AUTO MICROSCOP Y THERAPEUT 60045 ANKITA LUCIANO IC 5 [facility] PROPHYLAC INC INC TIC/DX INJECTION SUBQ/IM 28248 JORDANA COPPOLA NONSTRESS 5 [place] WANDA TEST URNLS DIP 44562 ANKITA LUCIANO 5 [facility] STICK/TAB INC [place] [address] ANKITA LUCIANO INFUSION 5 [facility] THERAPY/P INC INC ROPHYLAXI S /DX 1ST [place] 1 [place] [address] ANKITA LUCIANO INFUSION 5 [facility] THERAPY/P INC INC ROPHYLAXI S /DX 1ST TO 1 HR 21500 [facility] NONSTRESS 5 PHYSICIAN ALEX TEST S GROUP URNLS DIP 91683 ANKITA LUCIANO 5 [facility] STICK/TAB INC INC LET REAGENT AUTO MICROSCOP Y 75629 ANKITA LUCIANO NONSTRESS 5 [facility] TEST INC INC CULTURE 40976 ANKITA LUCIANO BACTERIAL 5 [facility] INC INC QUANTTATI VE COLONY COUNT URINE CUL 80519 JORDANA COPPOLA PRSMPTV 5 [place] WANDA PTHGNC ORGANISM SCRN W/COLONY ESTIMJ PARTICLE 28365 ANKITA LUCIANO AGGLUTINA 5 [facility] TION INC INC SCREEN EACH ANTIBODY THERAPEUT 96305 ANKITA LUCIANO IC 5 [facility] PROPHYLAC INC INC TIC/DX INJECTION SUBQ/IM CULTURE 09434 ANKITA LUCIANO BACTERIAL 5 [facility] INC INC QUANTTATI VE COLONY COUNT URINE 27107 JORDANA COPPOLA NONSTRESS 5 [place] WANDA TEST URNLS DIP 52013 ANKITA LUCIANO 5 [facility] STICK/TAB INC INC LET REAGENT AUTO MICROSCOP Y GLUCOSE 79282 ANKITA LUCIANO QUANTITAT 5 [facility] [place] BLOOD INC INC XCPT REAGENT STRIP COLLECTIO 35566 ANKITA LUCIANO N VENOUS 5 [facility] BLOOD INC INC VENIPUNCT URE URNLS DIP 14481 ANKITA LUCIANO 5 [facility] STICK/TAB INC INC LET REAGENT AUTO MICROSCOP Y 32693 JORDANA COPPOLA NONSTRESS 5 [place] WANDA TEST CULTURE 94123 ANKITA LUCIANO BACTERIAL 5 [facility] INC [place] [address] ANKITA LUCIANO INFUSION 5 [facility] HYDRATION INC INC INITIAL 31 MIN-1 [place] [address] ANKITA LUCIANO INFUSION 5 [facility] HYDRATION INC INC EACH ADDITIONA L HOUR EVAL C/V 34737 ANKITA LUCIANO AMNIOTIC 5 [facility] FLUID INC INC PROTEIN QUAL EA SPECIMEN EVAL C/V 97707 ANKITA ANKITA AMNIOTIC 5 [facility] FLUID INC INC PROTEIN QUAL EA SPECIMEN THERAPEUT 66472 ANKITA LUCIANO IC 5 [facility] PROPHYLAC INC INC TIC/DX INJECTION SUBQ/IM 00837 JORDANA COPPOLA NONSTRESS 5 [place] WANDA TEST CULTURE 41803 ANKITA LUCIANO BACTERIAL 5 [facility] INC INC QUANTTATI VE COLONY COUNT URINE URNLS DIP 30203 ANKITA LUCIANO 5 [facility] STICK/TAB INC INC LET REAGENT AUTO MICROSCOP Y FTL 44999 ANKITA LUCIANO FIBRONECT 5 [facility] IN INC INC CERVICOVA G SECRETION S SEMI-ELMER TOBACCO 04736 ANKITA LUCIANO USE 5 [facility] CESSATION INC INC INTERMEDI ATE 3-10 MINUTES 80682 ANKITA LUCIANO NONSTRESS 5 [facility] TEST INC INC THERAPEUT 27421 ANKITA LUCIANO IC 5 [facility] PROPHYLAC INC INC TIC/DX INJECTION SUBQ/IM 51687 JORDANA COPPOLA NONSTRESS 5 [place] WANDA TEST CULTURE 31934 ANKITA LUCIANO BACTERIAL 5 [facility] INC INC QUANTTATI VE COLONY COUNT URINE URNLS DIP 05979 ANKITA LUCIANO 5 [facility] STICK/TAB INC INC LET REAGENT AUTO MICROSCOP Y COLLECTIO 20147 ANKITA LUCIANO N VENOUS 4 [facility] BLOOD INC INC VENIPUNCT URE BLOOD 92903 ANKITA LUCIANO TYPING 4 [facility] SEROLOGIC INC INC RH (D) INJECTION J2790 ANKITA LUCIANO RHO D IG 4 [facility] HUMAN INC INC FULL DOSE 300 MCG THERAPEUT 33315 ANKITA LUCIANO IC 4 [facility] PROPHYLAC INC INC TIC/DX INJECTION SUBQ/IM ANTIBODY 83962 ANKITA ANKITA SCREEN 4 [facility] RBC EACH INC INC SERUM TECHNIQUE BLOOD 46102 ANKITA LUCIANO TYPING 4 [facility] SEROLOGIC INC INC ABO 62125 JORDANA COPPOLA NONSTRESS 4 [place] WANDA TEST 57887 [facility] RAFAT NONSTRESS 4 PHYSICIAN ALEX TEST S GROUP URNLS DIP 41013 ANKITA LUCIANO 4 [facility] STICK/TAB INC INC LET REAGENT AUTO MICROSCOP Y FTL 89041 ANKITA LUCIANO FIBRONECT 4 [facility] IN INC INC CERVICOVA G SECRETION S SEMI-ELMER IAADI 06039 ANKITA LUCIANO INFLUENZA 4 [facility] B VIRUS INC INC IAADI 94658 ANKITA LUCIANO INFFLUENZ 4 [facility] A A VIRUS INC INC US PREG 56465 [facility] UTERUS 4 WANDA WANDA AFTER 1ST TRIMEST / [place] [address] ANKITA LUCIANO ESTRIOL 4 [facility] INC INC ALPHA-FET 61642 ANKITA LUCIANO OPROTEIN 4 [facility] SERUM INC INC GONADOTRO 60633 ANKITA LUCIANO PIN 4 [facility] CHORIONIC INC INC QUANTITAT ELKE RADIOLOGI 50074 [place] ABIGAIL C 4 MEDICAL GRACE EXAMINATI IMAGING ON KNEE 3 ASS VIEWS CRTCHS E0114 [facility] INC. BREG INC. UNDARM 4 OTH THAN WOOD PAIR PAD TIP&[place] [address] JORDANA COPPOLA TRANSVAGI 4 [place] WANDA NAL IADNA 36959 BIO BIO TRICHOMON 4 REFERNCE REFERNCE LABORATOR LABORATOR VAGINALIS IES IES AMPLIFIED PROBE TECH IAADIADOO 25455 JORDANA R JORDANA R 4 [facility] MD TRICHOMON VAGINALIS IADNA 14369 BIO BIO CHLAMYDIA 4 REFERNCE REFERNCE LABORATOR LABORATOR TRACHOMAT IES IES IS AMPLIFIED PROBE TQ IADNA 18204 JORDANA COPPOLA HERPES 4 [facility] WANDA SIMPLX VIRUS DIRECT PROBE TQ IADNA 39337 BIO BIO VIRAJ 4 REFERNCE REFERNCE SPECIES LABORATOR LABORATOR AMPLIFIED IES IES PROBE TQ IADNA 27067 BIO BIO GARDNEREL 4 REFERNCE REFERNCE LA LABORATOR LABORATOR VAGINALIS IES IES AMPLIFIED PROBE TQ CYTP C/V 78734 BIO BIO AUTO THIN 4 REFERNCE REFERNCE LYR LABORATOR LABORATOR PREPJ SCR IES IES MNL RESCR PHYS CULTURE 94231 JORDANA COPPOLA CHLAMYDIA 4 [facility] WANDA ANY SOURCE IADNA 29327 BIO BIO HERPES 4 REFERNCE REFERNCE SOMPLX LABORATOR LABORATOR VIRUS IES IES AMPLIFIED PROBE TQ IADNA 45567 JORDANA COPPOLA NEISSERIA 4 [facility] WANDA GONORRHOE AE DIRECT PROBE TQ IADNA 29161 BIO BIO NEISSERIA 4 REFERNCE REFERNCE LABORATOR LABORATOR GONORRHOE IES IES AE AMPLIFIED PROBE TQ IADNA NOS 91879 BIO BIO 4 REFERNCE REFERNCE AMPLIFIED LABORATOR LABORATOR PROBE TQ IES IES EACH ORGANISM URINLS 10107 JORDANA COPPOLA DIP 4 [facility] WANDA STICK/TAB LET REAGNT NON-AUTO MICRSCPY URINE 95615 JORDANA COPPOLA 4 [facility] WANDA TEST VISUAL COLOR CMPRSN METHS URINE 29559 [facility] 4 N CO N CO TEST [facility] COLOR CMPRSN METHS LEVEL III 77232 PATHOLOGY WANG SURG 3 & MANUEL PATHOLOGY CYTOLOGY LAB GROSS&MAREK ROSCOPIC EXAM LAPS SURG 48436 SIVAKUMAR SHAVER JR 3 OMAR OMAR CHOLECYST ECTOMY W/[place] [address] ANKITA HARRISON INFUSION 3 [facility] THERAPY INC INC PROPHYLAX IS/DX EA HOUR LOCM Q9967 ANKITA ANKITA 300-399 3 [facility] MG/ML INC INC IODINE CONCENTRA TION PER ML INJECTION J2405 ANKITA LUCIANO 3 [facility] ONDANSETR INC INC ON HCL PER 1 [facility] URINARY 3 [facility] TRACT IMAGING EXAM WITH ASS CONTRAST MATERIAL URETHROCY 86942 ANKITA LUCIANO STOGRAPHY 3 [facility] INC INC RETROGRAD E RS&I ANES 03143 COMMUNITY PATHAK [place] INTRAPERI 3 ANESTH TONEAL OF THE UPPER BLUE ABDOMEN W/LAPS NOS HEPATIC 04271 ANKIAT LUCIANO FUNCTION 3 [facility] PANEL INC INC COMPREHEN 67615 ANKITA LUCIANO SIVE 3 [facility] METABOLIC INC INC PANEL BLOOD 62907 ANKITA LUCIANO COUNT 3 [facility] COMPLETE INC INC AUTO&[place] [address] [place] ABIG[place] ABDOMINAL 3 [facility] REAL IMAGING [place] W/[place] [address] [place] AB[place] ABDOMINAL 3 [facility] REAL IMAGING TIME ASS W/IMAGE LIMITED RADEX ABD 17614 [facility] COMPL 3 [facility] AQT ABD IMAGING W/S/E/D ASS VIEWS 1 [facility] 27488 JORDANA COPPOLA DISCHARGE 3 [facility] W[facility]DA DAY MANAGEMEN T 30 MIN/< SBSQ 39982 [facility] 3 [facility] WANDA CARE/DAY 15 MINUTES SBSQ 68954 [facility] 3 [facility]ERT[facility] WANDA CARE/DAY 15 MINUTES ANESTHESI 19738 COMMUNITY PATHAK [place] A 3 ANESTH [place] [address] [facility] JACY MAREK SURG 3 CLARY & PATHOLOGY BRIAN GROSS&MAREK ROSCOPIC EX[place] PREG 45317 [place] ABIGAIL UTERUS 3 [facility] REAL TIME IMAGING W/IMAGE ASS DCMTN TRANSVAG 94247 JORDANA COPPOLA BIOPHYSIC 3 CRUZ MUÑOZ AL PROFILE NON-STRES S TESTING 79769 SIVAKUMAR JR ALLLAISHA JR DELIVERY 3 OMAR OMAR ONLY LOW 741 ANKITA LUCIANO CERVICAL 3 [facility] INC INC SECTION 64584 JORDANA COPPOLA NONSTRESS 3 CRU[facility] MUÑOZ TEST 01800 JORDANA COPPOLA NONSTRESS 3 [facility] WANDA TEST PARTICLE 41239 ANKITA LUCIANO AGGLUTINA 3 [facility] TION INC INC SCREEN EACH ANTIBODY CUL 45890 JORDANA COPPOLA PRSMPTV 3 CRU[facility] MUÑOZ PTHGNC ORGANISM SCRN W/COLONY ESTIMJ 34012 JORDANA COPPOLA NONSTRESS 3 [facility] WANDA TEST URNLS DIP 72934 ANKITA LUCIANO 3 [facility] STICK/TAB INC INC LET RGNT NON-AUTO W/O MICRSCP 99851 JORDANA COPPOLA NONSTRESS 3 [facility] WANDA TEST BLOOD 49737 ANKITA LUCIANO COUNT 3 [facility] COMPLETE INC INC AUTO&AUTO DIFRNTL WBC BLOOD 56266 ANKITA LUCIANO TYPING 3 [facility] SEROLOGIC INC INC RH (D) INJECTION J2790 ANKITA LUCIANO RHO D IG 3 [facility] HUMAN INC INC FULL DOSE 300 MCG ANTIBODY 52450 ANKITA LUCIANO SCREEN 3 [facility] RBC EACH INC INC SERUM TECHNIQUE BLOOD 28771 ANKITA LUCIANO TYPING 3 [facility] SEROLOGIC INC INC ABO THERAPEUT 54845 ANKITA LUCIANO IC 3 [facility] PROPHYLAC INC INC TIC/DX INJECTION SUBQ/IM GLUCOSE 16114 ANKITA LUCIANO POST 3 [facility] GLUCOSE [place]REG 69614 JORDANA COPPOLA UTERUS 3 [facility] AFTER 1ST TRIMEST GESTATION COLPOSCOP 26853 JORDANA Kelley HARPEL Y CERVIX 3 CRU[facility] MUÑOZ BX CERVIX & [place] 46688 JORDANA MEZAL UTERUS 3 [facility] [place] [address] ANKITA LUCIANO ABDOMINAL 3 [facility] REAL INC INC TIME W/[place] [address] ANKITA LUCIANO EST[facility]OL 3 [facility] INC INC ALPHA-FET 88842 ANKITA LUCIANO OPROTEIN 3 [facility] SERUM INC INC GONADOTRO 66541 ANKITA LUCIANO PIN 3 [facility] CHORIONIC INC INC QUANTITAT [place] GONADOTRO 83064 ANKITA LUCIANO PIN 3 [facility] CHORIONIC INC INC QUANTITAT [place] BLOOD 62134 ANKITA LUCIANO COUNT 3 [facility] COMPLETE INC INC AUTO&AUTO DIFRNTL WBC US PREG 39076 ANKITA LUCIANO UTERUS 3 [facility] REAL TIME INC INC W/IMAGE DCMTN TRANSVAG URINE 22142 [facility] LUCIANO 3 [facility] TEST INC INC VISUAL COLOR CMPRSN METHS COLPOSCOP 38180 [facility] HARPEL Y CERVIX 3 PHYSICIAN WANDA BX CERVIX GROUP & PCC ENDOCRV CURRETAGE US PREG 81023 [facility] UTERUS 3 PHYSICIAN WANDA REAL TIME GROUP W/IMAGE PCC DCMTN TRANSVAG IAADIADOO 24254 [facility] HARPEL 3 PHYSICIAN WANDA TRICHOMON GROUP PCC VAGINALIS CULTURE 46567 [facility] CHLAMYDIA 3 PHYSICIAN PHYSICIAN ANY GROUP GROUP SOURCE PCC PCC IADNA 85377 [facility] NEISSERIA 3 PHYSICIAN WANDA GROUP GONORRHOE PCC AE DIRECT PROBE TQ IADNA 52675 [facility] HERPES 3 PHYSICIAN WANDA SIMPLX GROUP VIRUS PCC DIRECT PROBE TQ URINE 22119 [facility]TH DEPT HLTH DEPT VISUAL VASILIY VASILIY COLOR CMPRSN METHS LOW 74.1 Jordana Mccullough CERVICAL [place] Encounters Encounter Start End Date Code Location Performer Type Date OFFICE 02348 [facility] DARREN BALLESTEROS 7 7 PHYSICIAN T VISIT S GROUP 25 MINUTES EMERGENCY 77393 JULIAN DEMPSEY 7 7 PHYSICIAN [facility]MEN [facility] HIGH/URGE NT SEVERITY EMERGENCY 41734 [facility] 6 6 [facility] DEPARTMEN INC T VISIT MODERATE SEVERITY EMERGENCY 36230 JULIAN HICKS 6 6 PHYSICIAN MAREK DEPARTMEN S, [facility] HIGH/URGE NT SEVERITY HOSPITAL ANKITA - 6 6 [facility] OUTPATIEN [facility] T EMERGENCY 37890 JULIAN DEMPSEY 6 6 [facility] T VISIT MODERATE SEVERITY HOSPITAL ANKITA - 6 6 [facility] OUTPATIEN [facility] EMERGENCY 41523 ANKITA 6 6 [facility] DEPARTMEN [facility] T VISIT LOW/MODER SEVERITY EMERGENCY 18517 JULIAN ATKINS [facility] 6 [facility], [facility] HIGH/URGE NT SEVERITY HOSPITAL ANKITA - 6 6 [facility] OUT[facility]EN [facility] ANKITA - 6 6 [facility] OUTPATIEN [facility] T EMERGENCY 70657 ANKITA 6 6 [facility] T VISIT HIGH/URGE NT SEVERITY EMERGENCY 84641 JULIAN KRAMER DEPT 6 6 PHYSICIAN U DIANN VISIT S, [facility] HIGH SEVERITY& THREAT FUNJ OFFICE 00788 [facility] LEONA BALLESTEROS 5 5 PHYSICIAN MAREK T VISIT S GROUP 10 MINUTES EMERGENCY 37332 JULIAN HICKS 5 5 PHYSICIAN MAREK DEPARTMEN S, [facility] T VISIT MODERATE SEVERITY HOSPITAL ANKITA - 5 5 [facility] OUTPATIEN [facility] OFFICE 30168 JORDANA COPPOLA OUTPATIEN 5 5 CRUZ MUÑOZ T VISIT 15 MINUTES HOSPITAL ANKITA - 5 5 [facility] INPATIENT INC OFFICE 88441 JORDANA COPPOLA OUTPATIEN 5 5 CRUZ MUÑOZ T VISIT 15 MINUTES HOSPITAL ANKITA - 5 5 [facility] OUTPATIEN INC [facility]OSPITAL ANKITA - 5 5 [facility] OUTPATIEN INC T OFFICE 49223 JORDANA COPPOLA OUTPATIEN 5 5 CRUZ MUÑOZ T VISIT 15 MINUTES HOSPITAL ANKITA - 5 5 [facility]EN [facility] ANKITA - 5 5 [facility]EN [facility] ANKITA - 5 5 [facility] OUTPATIEN [facility] T OFFICE 92462 JORDANA COPPOLA OUTPATIEN 5 5 CRUZ MUÑOZ T VISIT 15 MINUTES HOSPITAL ANKITA - 5 5 [facility]PAT[facility]EN [facility] ANKITA - 5 5 [facility] OUTPATIEN INC T OFFICE 75445 JORDANA COPPOLA OUTPATIEN 5 5 CRUZ MUÑOZ T VISIT 15 MINUTES HOSPITAL ANKITA - 5 5 [facility] ANKITA - 5 5 [facility] OUTPATIEN INC T OFFICE 03733 JORDANA COPPOLA OUTPATIEN 5 5 CRUZ MUÑOZ T VISIT 15 MINUTES HOSPITAL ANKITA - 5 5 [facility] OUTPATIEN INC HOSPITAL ANKITA - 4 4 [facility] OUTPATIEN INC T OFFICE 81096 JORDANA COPPOLA OUTPATIEN 4 4 CRUZ MUÑOZ T VISIT 15 MINUTES HOSPITAL ANKITA - 4 4 [facility] OUTPATIEN INC T OFFICE 32019 [facility]PE[facility] OUTPATIEN 4 4 WANDA WADNA T VISIT 15 MINUTES EMERGENCY 41791 ALFARIS ALFARIS 4 4 [facility] DEPARTMEN T VISIT MODERATE SEVERITY EMERGENCY 78233 ANKITA 4 4 [facility] DEPARTMEN INC T VISIT LOW/MODER SEVERITY HOSPITAL ANKITA - 4 4 [facility] OUTPATIEN INC T OFFICE 69774 [facility] HARPEL OUTPATIEN 4 4 WANDA WANDA T VISIT 15 MINUTES OFFICE 74402 [facility] OUTPATIEN 4 4 WANDA WANDA T VISIT 15 MINUTES HOSPITAL ANKITA - 4 4 [facility] OUTPATIEN INC T EMERGENCY 63867 LEONA HICKS 4 4 [facility] DEPARTMEN T VISIT MODERATE SEVERITY OFFICE 78261 [facility] OUTPATIEN 4 4 WANDA WANDA T VISIT 15 MINUTES OFFICE 30257 JORDANA Kelley [facility] OUTPATIEN 4 4 CRUZ ROBERTS WANDA T VISIT 15 MINUTES EMERGENCY 80806 JESSIE ROMAN 4 4 [facility] T VISIT HIGH/URGE NT SEVERITY OFFICE 81595 JORDANA AMANDAPEL OUTPATIEN 4 4 CRUZ ROBERTS WANDA T VISIT 15 MINUTES PERIODIC 64548 [facility] PREVENTIV 4 4 WANDA WANDA E MED EST PATIENT 18-39 YRS OFFICE 87622 [facility] PENDELETO OUTPATIEN 4 4 N CO N CO T VISIT [place] [address] CENTER CENTER MINUTES Emergency JACK Allred MD (ER) 4 17:40 4 18:59 [facility] OFFICE 54658 JORDANA Kelley HARPEL OUTPATIEN 3 3 CRUZ MUÑOZ T VISIT 15 MINUTES HOSPITAL ANKITA - 3 3 [facility] OUTPATIEN INC T Emergency JACK Hicks MD (ER) 3 23:50 3 01:24 [facility] EMERGENCY 19709 BEBETO HICKS DEPT 3 3 EMERGENCY [facility]AREK VISIT SERVICES HIGH SEVERITY& THREAT [facility] ANKITA - 3 3 [facility] OUTPATIEN INC T OFFICE 65713 ALLRAN JR ALLRAN JR CONSULTAT 3 3 OMAR OMAR ION NEW/ESTAB PATIENT 60 MIN Emergency JACK HERRERA MD (ER) 3 11:16 3 13:23 [facility] Emergency JACK HERRERA MD (ER) 3 09:50 3 12:24 [facility] OFFICE 22561 JORDANA COPPOLA OUTPATIEN 3 3 CRUZ ROBERTS WANDA T VISIT 15 MINUTES Inpatient ERNA Coppola MD (IN) 3 15:32 3 10:30 [facility] R. OFFICE 67321 JORDANA COPPOLA OUTPATIEN 3 3 CRUZ ROBERTS WANDA T VISIT 15 MINUTES HOSPITAL ANKITA - 3 3 [facility] INPATIENT INC OFFICE 57064 JORDANA MEZAL OUTPATIEN 3 3 CRUZ ROBERTS WANDA T VISIT 15 MINUTES OFFICE 75756 JORDANA AMANDAPEL OUTPATIEN 3 3 CRUZ ROBERTS WANDA T VISIT 15 MINUTES OFFICE 36866 JORDANA COPPOLA OUTPATIEN 3 3 CRUZ ROBERTS WANDA T VISIT 15 MINUTES OFFICE 05935 JORDANA MEZAL OUTPATIEN 3 3 CRUZ MUÑOZ T VISIT 15 MINUTES HOSPITAL ANKITA - 3 3 [facility] OUTPATIEN INC T OFFICE 46862 JORDANA Kelley [facility] OUTPATIEN 3 3 CRUZ MUÑOZ T VISIT [address] [facility] 3 [address] [facility] T VISIT MODERATE SEVERITY OFFICE 21750 JORDANA Kelley [facility] OUTPATIEN 3 3 CRUZ ROBERTS WANDA T VISIT 15 MINUTES OFFICE 85529 JORDANA Kelley [facility] OUTPATIEN 3 3 CRUZ MUÑOZ T VISIT 15 MINUTES HOSPITAL ANKITA - 3 3 [facility] OUTPATIEN INC T OFFICE 75125 JORDANA Kelley [facility] OUTPATIEN 3 3 CRUZ MUÑOZ T VISIT 15 MINUTES OFFICE 19601 JORDANA Kelley [facility] OUTPATIEN 3 3 CRUZ ROBERTS WANDA T VISIT 15 MINUTES OFFICE 78739 JORDANA Kelley [facility]PE[facility] OUTPATIEN 3 3 CRU[facility] MUÑOZ T VISIT 15 MINUTES HOSPITAL ANKITA - 3 3 [facility] OUTPATIEN INC T OFFICE 98726 JORDANA Kelley [facility] OUTPATIEN 3 3 CRUZ MUÑOZ T VISIT 15 MINUTES OFFICE 33391 JORDANA AMANDAPEL OUTPATIEN 3 3 CRUZ MUÑOZ T VISIT 15 MINUTES HOSPITAL ANKITA - 3 3 [facility] OUTPATIEN INC T OFFICE 91587 [facility] HARPEL OUTPATIEN 3 3 PHYSICIAN WANDA T VISIT GROUP 15 PCC MINUTES HOSPITAL ANKITA - 3 3 [facility] OUTPATIEN INC T [facility] - 3 3 [facility] [address] [facility] OUTPATIEN 3 3 [facility] T VISIT MEDICAL 10 CENTER MINUTES OFFICE 28285 JORDANA COPPOLA OUTPATIEN 3 3 CRUZ MUÑOZ T VISIT 15 MINUTES OFFICE 84168 [facility] SUSANAL OUTPATIEN 3 3 PHYSICIAN WANDA T VISIT GROUP 15 PCC MINUTES Emergency JACK MORALES MD (ER) 3 14:50 3 16:54 [facility] ANKITA - 3 3 [facility] OUTPATIEN INC T EMERGENCY 26452 ANKITA 3 3 [facility] DEPARTMEN INC T VISIT HIGH/URGE NT SEVERITY OFFICE 67171 [facility] VASILIYPEL OUTPATIEN 3 3 PHYSICIAN WANDA T VISIT GROUP 15 PCC MINUTES OFFICE 99761 [facility] SUSANAL OUTPATIEN 3 3 PHYSICIAN WANDA T VISIT GROUP 15 PCC MINUTES INITIAL 88990 [facility] SUSANAL PREVENTIV 3 3 PHYSICIAN WANDA E GROUP MEDICINE PCC NEW PT AGE 18-39YRS OFFICE 29710 [facility] 3 3 [facility] 20 HLTH DEPT HLTH DEPT MINUT[facility] VASILIY
--- OUTSIDE RECORDS SUMMARY | 2017-02-02 09:14 | External Medical Summary Rpt ---
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 Care Curriculum Supervisor Name Role Phone ALFARIS MOH, ALFARIS Unavailable [...] Unavailable [facility] Unavailable Unavailable [facility] & Unavailable Unavailable DUBILIER, [facility] DUBILIER DOUGLASS ALEX, DOUGLASS Unavailable Unavailable [facility] Unavailable Unavailable [facility] ABIGAIL GRACE, Unavailable Unavailable ABIGAIL GRACE LEONA MAREK, LEONA Unavailable Unavailable MAREK LEONA MAREK, LEONA Unavailable Unavailable MAREK JORDANA ARROYO MD, Unavailable Unavailable JORDANA ARROYO MD JACY MAREK, JACY MAREK Unavailable Unavailable HARPEL WANDA, HARPEL Unavailable Unavailable WANDA HARPEL WANDA, HARPEL Unavailable Unavailable WANDA [facility] Un[facility] Un[facility] INC, [facility] Unavailable Unavailable [facility], [facility], Unavailable Unavailable [facility] Unavailable Unavailable [facility]ING [facility], [facility] WANG MANUEL, WANG Unavailable Unavailable MANUEL [facility], Unavailable Unavailable [facility], Unavailable Unavailable [facility] Unavailable Unavailable SERVICES, [facility] PATHAK OTILIA, PATHAK OTILIA Unavailable Unavailable [facility], [facility]available [facility], [facility] Unavailable Unavailable LAB, [facility] Unavailable Unavailable CENTER, [facility] Unavailable Unavailable CENTER, [facility] PICKJOSH JR BOUBACAR, Unavailable Unavailable [facility] VICKIE TOD, VICKIE TOD Unavailable Unavailable RENUSCH, RENUSCH Unavailable Unavailable RENUSCH YENI, RENUSCH Unavailable Unavailable YENI [facility] MOH Unavailable Unavailable SELPH SCO, SELPH SCO Unavailable Unavailable SOTINGEACharlieU DIANN, Unavailable Unavailable SOWINSTON ZUHMAN SHE, Unavailable Unavailable TYLER JUDSON [facility], Unavailable Unavailable [facility] Unavailable Unavailable CENTER, [facility], STONE Unavailable Unavailable [facility] Unavailable Unavailable [facility] Unavailable Unavailable [facility] Unavailable Unavailable [facility], [facility] Unavailable Unavailable DEPT [facility], [facility] ANDREW RAYMUNDO, ANDREW Unavailable Unavailable RAYMUNDO Purpose Continuity of Care Document - 10-06-2012 through 2016 Problems Code Diagnosis DOS Provider Status R05 COUGH 12-30-2016 [facility] M5417 RADICULOPAT 11-09-2016 [facility] PHYSICIANS LUMBOSACRAL GROUP REGION M5442 LUMBAGO 10-29-2016 [facility] WITH [facility]ICIANS, SCIATICA PLLC LEFT SIDE K5289 OTH SPEC 08-03-2016 [facility] NONINFECTIV [facility]IANS, E PLLC GASTROENTER ITIS & COLITIS K529 NONINFECTIV 08-03-2016 [facility] GASTROENTER INC ITIS & COLITIS UNS M722 PLANTAR 04-20-2016 [facility] FASCIAL [facility]YSICIANS, FIBROMATOSI PLLC S M2669 OTHER 04-05-2016 [facility] 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 E657PRL DISLOCATION 04-05-2016 [facility] OF JAW PHYSICIANS, INITIAL PLLC ENCOUNTER F459LLY SPRAIN 04-05-2016 [facility] LIGAMENTS PHYSICIANS, T-SPINE PLLC INITIAL ENCOUNTER Z720 TOBACCO USE 04-05-2016 [facility] INC Z0100 ENCOUNTER 01-28-2016 [facility] EXAM EYES & GRE VISION W/O ABNORMAL FIND [id number] MIGRAINE 10-10-2015 [facility] UNS NOT PHYSICIANS, INTRACT W/O PLLC STATUS MIGRAINOSUS R0789 OTHER CHEST 10-10-2015 [facility] PAIN PHYSICIANS, PLLC 71294 OTHER&UNSPE 05-12-2015 [facility] CIFIED DISC PHYSICIANS, DISORDER PLLC CERVICAL REGION 19363 OTHER 04-16-2015 [facility] MALAISE [facility] FATIGUE INC 93984 OTHER SIGN 11-01-2014 JORDANA Kelley AND LU ARROYO MD IN BREAST 75999 BREECH 10-25-2014 [facility] ANESTH OF N W/O THE BLUE MENTION VERSION DELIV 97786 PREV C/S 10-25-2014 [facility] DELIV DELIV PHYSICIANS W/WO GROUP MENTION ANTPRTM COND V252 STERILIZATI 10-25-2014 [facility] ON [facility] INC V270 OUTCOME OF 10-25-2014 [facility] DELIVERY PHYSICIANS SINGLE GROUP LIVEBORN V7269 OTHER 10-25-2014 [facility] & EXAMINATION DUBILIER V221 SUPERVISION 10-19-2014 JORDANA Kelley OF OTHER [place] NORMAL 36015 PREMATURE 10-18-2014 [facility] RUPTURE [facility] MEMBRANES INC ANTEPARTUM 84823 OTHER 10-14-2014 JORDANA ARROYO MD LABOR, ANTEPARTUM 33636 EDEMA OR 10-14-2014 [facility] EXCESSIVE [facility] WEIGHT GAIN INC ANTEPARTUM 82010 THREATENED 10-08-2014 [facility] PREMATURE PHYSICIANS LABOR GROUP ANTEPARTUM 09227 OTHER 10-07-2014 [facility] SPECIFED [facility] COMPLICATIO INC N ANTEPARTUM V286 SCREENING 10-05-2014 [facility] OF [facility] STREPTOCOCC INC US B V771 SCREENING 09-27-2014 [facility] FOR [facility] DIABETES INC MELLITUS 7910 PROTEINURIA 09-25-2014 [facility] INC 94022 DECR 09-07-2014 JORDANA ARROYO MD MGMT MOTH ANTPRTM COND/COMP V285 08-13-2014 [facility] SCREENING [facility] FOR INC ISOIMMUNIZA TION 7840 HEADACHE 07-20-2014 [facility] INC 12507 ABDOMINAL 07-20-2014 [facility] PAIN, [facility] UNSPECIFIED INC SITE 4659 ACUTE URIS 07-10-2014 [facility] OF [facility] UNSPECIFIED INC SITE 7291 UNSPECIFIED 07-10-2014 ALFARIS MOH MYALGIA AND MYOSITIS V2889 OTHER 05-24-2014 [facility] SPECIFIED [facility] INC SCREENING 490 BRONCHITIS 05-13-2014 LEONA MAREK NOT SPECIFIED ACUTE OR CHRONIC 88850 EFFUSION OF 04-15-2014 [facility] [facility] 88628 PAIN IN 04-15-2014 [place] [facility]INT, [facility] 8449 SPRAIN&STRA 04-15-2014 [facility] IN OF UNSPECIFIED SITE OF KNEE&LEG 54954 UNSPECIFIED 04-15-2014 [facility] SITE OF ANKLE SPRAIN AND STRAIN 9597 INJURY 04-15-2014 [place] OTHER&UNSPE MEDICAL CIFIED KNEE IMAGING ASS LEG ANKLE&FOOT E8888 OTHER FALL 04-15-2014 [facility] 6268 OTH D/O 03-23-2014 [facility] MENSTRUATIO N&OTH ABN BLEED FE GNT TRACT V704 EXAMINATION 03-23-2014 [facility] FOR REFERNCE MEDICOLEGAL LABORATORIE REASON S V7231 ROUTINE 03-23-2014 HARPEL WANDA GYNECOLOGIC AL EXAMINATION V7242 03-15-2014 [facility] POSITIVE RESULT V242 ROUTINE 07-25-2013 JORDANA Kelley [facility] FOLLOW-UP 89294 CALCU 2013 PATHOLOGY & [facility] CYTOLOGY W/OTH LAB CHOLECYST W/O MENTION OBST 52356 CALCU 2013 [place] [facility] W/O MENTION IMAGING ASS CHOLECYST/O BST 58633 ACUTE AND 2013 SIVAKUMAR SIMPSON CHRONIC OMAR CHOLECYSTIT IS 5756 CHOLESTEROL 2013 PATHOLOGY & OSIS OF CYTOLOGY [facility] LAB 5759 UNSPECIFIED 06-25-2013 [facility]ERGENCY OF SERVICES GALLBLADDER 87349 ABDOMINAL 06-25-2013 [facility] PAIN RIGHT EMERGENCY UPPER SERVICES QUADRANT 30156 CALCU BD 06-20-2013 ALLLAISHA SIMPSON W/OTH OMAR CHOLECYST W/O MENTION OBSTRUCTION 5758 OTHER 06-20-2013 SIVAKUMAR SIMPSON SPECIFIED OMAR DISORDER OF [place] V2502 GENERAL 06-06-2013 JORDANA ARROYO MD INITIATION OTH CONTRACEPT MEASURES V2509 OT GENERAL 06-06-2013 JORDANA ARROYO MD CNSL&ADVICE CONTRACEPT MANAGEMENT V5832 ENCOUNTER 06-06-2013 JORDANA Kelley FOR REMOVAL [place] OF SUTURES 95847 PREMATURE 06-02-2013 JORDANA Kelley SEPARATION [place] OF PLACENTA WITH DELIVERY 01405 C/S DELIV 06-02-2013 JORDANA Kelley W/O INDICAT [place] DELIV W/WO ANTPRTM COND 7995 UNSPECIFIED 05-30-2013 [facility] INC 85222 UNSPECIFIED 05-30-2013 [place] [facility] ANTEPARTUM 99350 BREECH 05-30-2013 [place] [facility] N W/O IMAGING ASS MENTION VERSION ANTPRTM 79154 OTH 05-30-2013 [facility] PLACENTAL CLARY & CONDS DUBILIER AFFECT MANAGEMENT MOTH DELIV 4660 ACUTE 05-10-2013 [facility] 49657 OT CURRENT 04-30-2013 JORDANA ARROYO MD CLASSIFIABL E ELSW ANTPRTM 9222 CONTUSION 04-30-2013 JORDANA OLTT MD ABDOMINAL WALL 55168 DYSPLASIA 02-20-2013 JORDANA ESTRADA CERVIX [facility] UNSPECIFIED 44794 GALLSTONE 01-25-2013 [facility]US [facility] INC V222 12-18-2012 [facility] 73031 THREATENED 11-12-2012 [facility] UNSPECIFIED SERVICES EPISODE CARE 66689 THREATENED 11-12-2012 [facility] , [facility] ANTEPARTUM INC 20321 UNSPEC 11-12-2012 [place] [facility] E[facility]LY [facility] ANTEPARTUM 63271 OT CURRENT 11-12-2012 [facility] CCE-COMPL SERVICES PG CB/PP-UNS EOC 41096 OT 10-27-2012 [facility] PLACENTAL PHYSICIAN CONDS GROUP PCC AFFECT MGMT MOTH ANTPRTM 65776 OBESITY, 10-17-2012 [facility] UNSPECIFIED PHYSICIAN GROUP PCC 6260 ABSENCE OF 10-17-2012 [facility] MENSTRUATIO PHYSICIAN N GROUP PCC V2689 OTHER 10-06-2012 [facility] SPECIFIED DISTRICT PROCREATIVE [facility] DEPT MANAGEMENT VASILIY Medications Na ND Rx Da Fi Fi Am Da Di Ph RX Ph St me C No te ll ll ou ys ag ar # ys at rm s nt no ma ic us Or Da si cy ia de te s n re d [place] 59 04 05 6. 5 00 [facility] IT 76 -2 -1 00 00 L- ti HR 23 6- 9- 0 07 MA ve OM 06 20 20 48 RT YC 00 17 17 45 IN 1 06 PH AR 25 MA 0 CY MG #5 TA 91 BL ET DC 00 04 05 10 5 00 [facility] ED 14 -2 -1 .0 00 L- ti NI 39 6- 9- 00 07 MA ve SO 73 20 20 48 RT NE 80 17 17 45 5 07 PH 20 AR MA MG CY TA #5 BL 91 ET BE 68 04 05 15 5 00 [facility] NZ 38 -2 -1 .0 00 L- ti ON 20 6- 9- 00 07 MA ve AT 24 20 20 48 RT AT 70 17 17 45 E 1 08 PH 10 AR 0 MA MG CY CA #5 PS 91 UL E FL 68 04 05 30 30 00 [place] Ac UO 64 -1 -0 .0 00 L- ti XE 50 1- 5- 00 07 MA ve TI 13 20 20 43 RT NE 05 17 17 69 4 99 PH HC AR L MA 20 CY MG #5 91 CA PS UL E NA 65 03 03 28 14 00 WA Ac DC 16 -0 -3 .0 00 L- ti [...] 47 RT ZA 89 17 17 44 DC 0 33 PH IN AR E MA 10 CY MG #5 91 TA BL ET ME 59 03 03 21 6 00 WI Ac TH 74 -0 -3 .0 00 L- ti YL 60 6- 1- 00 07 MA ve DC 00 20 20 47 RT ED 10 [...] 1 14 PH CE AR TA MA HI CY NO PH #5 EN 91 5- 32 5 DC 59 02 03 27 7 00 WA [...] 47 RT ZA 89 17 17 25 DC 0 31 PH IN AR E MA 10 CY MG #5 91 TA BL ET HY 00 02 03 [address] 40 -2 -2 .0 00 L- ti OC 60 3- 4- 00 02 MA ve OD 12 20 20 23 RT ON 30 17 17 92 -A 1 64 PH CE AR TA MA HI CY NO PH #5 EN 91 5- 32 5 FL 68 12 01 30 30 00 WA Ac UO 64 -2 -2 .0 00 L- ti XE 50 8- 0- 00 07 MA ve TI 13 20 20 43 RT NE 05 16 17 69 4 99 PH HC AR L MA 20 CY MG #5 91 CA PS UL E Procedures Procedure DOS Code Location Performer Comment RADIOLOGI 96233 [facility] C EXAM 7 MEDICAL CHEST 2 IMAGING VIEWS ASS FRONTAL&L ATERAL THERAPEUT 52002 [facility] STONE IC 7 PHYSICIAN PROPHYLAC S GROUP TIC/DX INJECTION SUBQ/IM INJECTION J1040 [facility] 7 PHYSICIAN PHYSICIAN METHYLPRE S GROUP S GROUP DNISOLONE ACETATE 80 MG RADEX 70079 [facility] SPINE 7 PHYSICIAN LUMBOSACR S, PLLC AL MINIMUM 4 VIEWS THERAPEUT 13192 [facility] LUCIAN[facility] IC 6 [facility] PROPHYLAC INC INC TIC/DX INJECTION SUBQ/IM OPHTH 67726 [facility] 6 GRE GRE XM&EVAL COMPRE NEW PT 1/> VST ECG 55207 [facility] LU[facility]AN[facility] ROUTINE 6 [facility] ECG INC INC W/LEAST 12 LDS TRCG ONLY W/O I&R CREATINE 42255 [facility] KINASE 6 [facility] TOTAL INC INC COMPREHEN 68009 [facility] LU[facility] SIVE 6 [facility] METABOLIC INC INC PANEL CREATINE 64907 [facility] LUCIANO KINASE MB 6 [facility] FRACTION INC INC ONLY THER 57935 [facility] PROPH/DX 6 [facility] NJX IV INC INC PUSH SINGLE/1S T SBST/[place] [address] [facility] LU[facility] TROPONIN 6 [facility] QUANTITAT INC INC ELKE ECG 43923 DHRUV HAZELSON ROUTINE 6 ANTONY ANTONY ECG W/LEAST 12 LDS I&R ONLY BLOOD 30835 [facility] LUCIANO COUNT 6 [facility] COMPLETE INC INC AUTO&AUTO DIFRNTL WBC THERAPEUT 94089 [facility] IC 6 [facility] INJECTION INC INC IV PUSH EACH NEW DRUG BLOOD 78221 [facility] LUCIANO COUNT 5 [facility] COMPLETE INC INC AUTO&[place] [address] ANKITA ANKITA FOLIC 5 [facility] ACID INC INC SERUM COMPREHEN 35238 ANKITA LUCIANO SIVE 5 [facility] METABOLIC INC INC PANEL 25 79076 [facility] LUCIANO HYDROXY 5 MEM [facility] INCLUDES [place] [address] ANKITAVIVIANE LUCIANO THYROXINE 5 MEM [facility] TOTAL INC INC CYANOCOBA 91631 ANKITA HARRISON PRASANNA 5 [facility] VITAMIN INC INC B-12 COLLECTIO 13454 ANKITA LUCIANO N VENOUS 5 [facility] [place] [address] [facility] LU[facility]AN[facility] THYROID 5 [facility] STIMULATI INC INC NG HORMONE TSH 26656 [facility] VICKIE TOD DELIVERY 5 PHYSICIAN ONLY S GROUP ANESTHESI 96033 [facility] 5 ANESTH SHE OF THE DELIVERY BLUE ONLY 69220 JORDANA ARROYO DELIVERY 5 [facility] [place] WANDA BERENICE W/[place] [address] [facility] PICKLESIM SURG 5 CLARY & RADHA SIMPSON PENDING SALE TO [facility] DUBILIER GROSS&MAREK ROSCOPIC EXAM OTH 6639 [facility] BILATERAL 5 [facility] INC INC DESTRUC/O CCLUSION FALLOPIAN TUBES LOW 741 [facility] CERVICAL 5 [facility] INC INC SECTION EVAL C/V 01269 [facility] AMNIOTIC 5 [facility] FLUID INC INC PROTEIN QUAL EA SPECIMEN 08850 [facility] NONSTRESS 5 [facility] TEST INC INC 23969 [facility] NONSTRESS 5 PHYSICIAN ALEX TEST S GROUP 14828 [facility] HARRISON NONSTRESS 5 [facility] TEST INC INC COLLECTIO 93526 [facility] N VENOUS 5 [facility] BLOOD INC INC VENIPUNCT URE THERAPEUT 26589 [facility] LUCIANO IC 5 [facility] PROPHYLAC INC INC TIC/DX INJECTION SUBQ/IM URNLS DIP 94249 [facility] LUCIANO 5 [facility] STICK/TAB INC INC LET REAGENT AUTO MICROSCOP Y URNLS DIP 61429 [facility] LUCIANO 5 [facility] STICK/TAB [place] [address] [facility] INFUSION 5 [facility] THERAPY/P INC INC ROPHYLAXI S /DX 1ST TO 1 HR 76775 [facility] NONSTRESS 5 [facility] TEST INC INC 20331 [facility] NONSTRESS 5 [place] [address] [facility] INFUSION 5 [facility] THERAPY/P INC INC ROPHYLAXI S /DX 1ST TO 1 HR URNLS DIP 85873 [facility] LUCIANO 5 [facility] STICK/TAB INC INC LET REAGENT AUTO MICROSCOP Y CULTURE 05513 [facility]ITA ANKITA BACTERIAL 5 [facility] INC INC QUANTTATI VE COLONY COUNT URINE 01736 [facility] HARRISON NONSTRESS 5 [facility] TEST INC INC PARTICLE 41541 [facility] AGGLUTINA 5 [facility] TION INC INC SCREEN EACH ANTIBODY CUL 08825 JORDANA ARROYO PRSMPTV 5 [facility] PTHGNC ORGANISM SCRN W/COLONY ESTIMJ CULTURE 63904 ANKITA ANKITA BACTERIAL 5 [facility] INC INC QUANTTATI VE COLONY COUNT URINE 65194 [facility] HARRISON NONSTRESS 5 [facility] TEST INC INC THERAPEUT 50700 ANKITAVIVIANE LUCIANO IC 5 [facility] PROPHYLAC INC INC TIC/DX INJECTION SUBQ/IM URNLS DIP 94138 [facility] HARRISON 5 [facility] STICK/TAB INC INC LET REAGENT AUTO MICROSCOP Y GLUCOSE 54043 ANKITAVIVIANE LUCIANO QUANTITAT 5 [facility] H[facility] [place] BLOOD INC INC XCPT REAGENT STRIP COLLECTIO 51922 [facility] LUCIANO N VENOUS 5 [facility] BLOOD INC INC VENIPUNCT URE EVAL C/V 87399 [facility] LUCIANO AMNIOTIC 5 [facility] FLUID INC INC PROTEIN QUAL EA SPECIMEN 02137 [facility] HARRISON NONSTRESS 5 [facility] TEST INC INC CULTURE 39857 ANKITA ANKITA BACTERIAL 5 [facility] INC INC QUANTTATI VE COLONY COUNT URINE URNLS DIP 88025 [facility]ITA LUCIANO 5 [facility] STICK/TAB INC [place] [address] [facility] LUCIANO INFUSION 5 [facility] HYDRATION INC INC INITIAL 31 MIN-[place] [address] ANKITA LUCIANO INFUSION 5 [facility] HYDRATION INC INC EACH ADDITIONA L HOUR THERAPEUT 61606 [facility] HARRISON IC 5 [facility] PROPHYLAC INC INC TIC/DX INJECTION SUBQ/IM FTL 50254 [facility] LUCIAN[facility] FIBRONECT 5 [facility] IN INC INC CERVICOVA G SECRETION S SEMI-ELMER URNLS DIP 39121 [facility] ANKITA 5 [facility] STICK/TAB INC INC LET REAGENT AUTO MICROSCOP Y CULTURE 25114 [facility] BACTERIAL 5 [facility] INC INC QUANTTATI VE COLONY COUNT URINE 26345 JORDANA ARROYO NONSTRESS 5 [facility] TEST EVAL C/V 56162 [facility] LU[facility]AN[facility] AMNIOTIC 5 [facility] FLUID INC INC PROTEIN QUAL EA SPECIMEN TOBACCO 06239 ANKITA LUCIANO USE 5 [facility] CESSATION INC INC INTERMEDI ATE 3-10 MINUTES 49381 AN[facility] LUCIANO NONSTRESS 5 [facility] TEST INC INC THERAPEUT 93596 ANKITA LUCIANO IC 5 [facility] PROPHYLAC INC INC TIC/DX INJECTION SUBQ/IM URNLS DIP 10574 ANKITA LUCIANO 5 [facility] STICK/TAB INC INC LET REAGENT AUTO MICROSCOP Y 67990 JORDANA ARROYO NONSTRESS 5 [facility] WANDA TEST CULTURE 19291 [facility] LUCIANO BACTERIAL 5 [facility] INC INC QUANTTATI VE COLONY COUNT URINE BLOOD 05852 [facility] LUCIANO TYPING 4 [facility] SEROLOGIC INC INC RH (D) COLLECTIO 08244 [facility]KITA LUCIANO N VENOUS 4 [facility] BLOOD INC INC VENIPUNCT URE ANTIBODY 47718 [facility]ITA LUCIANO SCREEN 4 [facility] RBC EACH INC INC SERUM TECHNIQUE BLOOD 30239 [facility] LUCIANO TYPING 4 [facility] SEROLOGIC INC INC ABO THERAPEUT 71976 ANKITA LUCIANO IC 4 [facility] PROPHYLAC INC INC TIC/DX INJECTION SUBQ/IM INJECTION J2790 [facility] LUCIANO RHO D IG 4 [facility] HUMAN INC INC FULL DOSE 300 MCG 45088 JORDANA ARROYO NONSTRESS 4 [place] WANDA TEST 59140 [facility] NONSTRESS 4 PHYSICIAN ALEX TEST S GROUP URNLS DIP 96114 ANKITA LUCIANO 4 [facility] STICK/TAB INC INC LET REAGENT AUTO MICROSCOP Y FTL 04585 ANKITA LUCIANO FIBRONECT 4 [facility]OS[facility] IN INC INC CERVICOVA G SECRETION S SEMI-ELMER IAADI 09104 ANKITA LUCIANO INFLUENZA 4 [facility] B VIRUS INC INC IAADI 68541 [facility] LUCIANO INFFLUENZ 4 [facility]OS[facility] A A VIRUS INC INC US PREG 63847 [facility] UTERUS 4 WANDA WANDA AFTER 1ST TRIMEST GESTATION ALPHA-FET 89846 [facility] LUCIANO OPROTEIN 4 [facility] [place] [address] ANKITA LUCIANO ESTRIOL 4 [facility] INC INC GONADOTRO 54572 [facility]CIANO PIN 4 [facility] CHORIONIC INC INC QUANTITAT [place] RADIOLOGI 12387 [place] ABIGAIL C 4 MEDICAL GRACE EXAMINATI IMAGING ON KNEE 3 ASS VIEWS CRTCHS E0114 [facility] INC. BREG INC. UNDARM 4 OTH THAN WOOD PAIR PAD TIP&[place] [address] JORDANA ARROYO TRANSVAGI 4 [facility] NAL IADNA 65826 BIO BIO CHLAMYDIA 4 REFERNCE REFERNCE LABORATOR LABORATOR TRACHOMAT IES IES IS AMPLIFIED PROBE TQ IADNA 16303 JORDANA ARROYO HERPES 4 [facility] SIMPLX VIRUS DIRECT PROBE TQ IADNA NOS 94819 BIO BIO 4 REFERNCE REFERNCE AMPLIFIED LABORATOR LABORATOR PROBE TQ IES IES EACH ORGANISM URINLS 10290 JORDANA ARROYO DIP 4 [facility] STICK/TAB LET REAGNT NON-AUTO MICRSCPY IADNA 85977 BIO BIO TRICHOMON 4 REFERNCE REFERNCE LABORATOR LABORATOR VAGINALIS IES IES AMPLIFIED PROBE TECH IAADIADOO 06769 JORDANA SILVEIRA R 4 [facility] MD TRICHOMON VAGINALIS IADNA 41237 BIO BIO VIRAJ 4 REFERNCE REFERNCE SPECIES LABORATOR LABORATOR AMPLIFIED IES IES PROBE TQ IADNA 07424 BIO BIO GARDNEREL 4 REFERNCE REFERNCE LA LABORATOR LABORATOR VAGINALIS IES IES AMPLIFIED PROBE TQ CYTP C/V 83137 BIO BIO AUTO THIN 4 REFERNCE REFERNCE LYR LABORATOR LABORATOR PREPJ SCR IES IES MNL RESCR PHYS CULTURE 75155 JORDANA ARROYO CHLAMYDIA 4 [facility] WANDA ANY SOURCE IADNA 35212 JORDANA ARROYO NEISSERIA 4 [facility] GONORRHOE AE DIRECT PROBE TQ IADNA 31774 BIO BIO NEISSERIA 4 REFERNCE REFERNCE LABORATOR LABORATOR GONORRHOE IES IES AE AMPLIFIED PROBE TQ IADNA 35704 BIO BIO HERPES 4 REFERNCE REFERNCE SOMPLX LABORATOR LABORATOR VIRUS IES IES AMPLIFIED PROBE TQ URINE 51784 JORDANA ARROYO 4 [facility] [place] WANDA TEST VISUAL COLOR CMPRSN METHS URINE 64905 [facility] PENDELETO 4 N CO N CO TEST [facility] [place] [address] ANKITA LUCIANO INFUSION 3 [facility] THERAPY INC INC PROPHYLAX IS/DX EA HOUR INJECTION J2405 [facility]KITA HARRISON 3 [facility] ONDANSETR INC INC ON HCL PER 1 MG LOCM Q9967 ANKITA HARRISON [phone] [facility] MG/ML INC INC IODINE CONCENTRA TION PER ML LAPS SURG 87259 SIVAKUMAR JR SIVAKUMAR JR 3 OMAR OMAR CHOLECYST ECTOMY W/CHOLANG IOGRAPHY X-RAY 59686 [place] [facility] URINARY 3 [facility] TRACT IMAGING EXAM WITH ASS CONTRAST MATERIAL URETHROCY 52753 ANKITA LUCIANO STOGRAPHY 3 [facility] INC INC RETROGRAD E RS&I ANES 35571 [facility] PATHAK [place] INTRAPERI 3 ANESTH TONEAL OF THE UPPER BLUE ABDOMEN W/LAPS NOS HEPATIC 69483 ANKITA LUCIANO FUNCTION 3 [facility] PANEL INC INC LEVEL III 11824 PATHOLOGY WANG SURG 3 & MANUEL PATHOLOGY CYTOLOGY LAB GROSS&MAREK ROSCOPIC EXAM COMPREHEN 75691 ANKITA LUCIANO SIVE 3 [facility] METABOLIC INC INC PANEL BLOOD 73760 ANKITA LUCIANO COUNT 3 [facility] COMPLETE INC INC AUTO&[place] [address] [place] [facility] ABDOMINAL 3 [facility] REAL IMAGING [place] ASS W/[place] [address] [place] [facility] ABDOMINAL 3 [facility] REAL IMAGING TIME ASS W/IMAGE LIMITED RADEX ABD 94506 [place] [facility] COMPL 3 [facility] AQT ABD IMAGING W/S/E/D ASS VIEWS 1 VIEW [facility] 98054 JORDANA ARROYO DISCHARGE 3 [place] WANDA DAY MANAGEMEN T 30 MIN/< SBSQ 64673 [facility] 3 [place] WANDA CARE/DAY 15 MINUTES SBSQ 42054 [facility] WANDA CARE/DAY 15 MINUTES 59712 JORDANA ARROYO BIOPHYSIC 3 CRUZ MUÑOZ AL PROFILE NON-STRES S TESTING LEV[place] V 25275 [place] MAREK SURG 3 CLARY & PATHOLOGY KARLAILIRADHA GROSS&MAREK ROSCOPIC EXAM US PREG 31864 [place] [facility] UTERUS [facility] REAL TIME IMAGING W/IMAGE ASS DCMTN TRANSVAG ANESTHESI 50919 [facility] A 3 ANESTH OF THE DELIVERY BLUE ONLY 19927 JORDANA ARROYO DELIVERY 3 [facility] WANDA ONLY LOW 741 ANKITA LUCIANO CERVICAL 3 [facility] INC INC SECTION 16878 JORDANA ARROYO NONSTRESS 3 [facility] [facility] WANDA TEST 70614 JORDANA ARROYO NONSTRESS 3 [facility] WANDA TEST PARTICLE 51652 ANKITA LUCIANO AGGLUTINA 3 [facility] TION INC INC SCREEN EACH ANTIBODY CUL 66629 JORDANA ARROYO PRSMPTV 3 [facility] WANDA PTHGNC ORGANISM SCRN W/COLONY ESTIMJ 95141 JORDANA ARROYO NONSTRESS 3 [facility] WANDA TEST URNLS DIP 83109 ANKITA LUCIANO 3 [facility] STICK/TAB INC INC LET RGNT NON-AUTO W/O MICRSCP 50001 JORDANA ARROYO NONSTRESS 3 [facility] WANDA TEST ANTIBODY 15610 ANKITA LUCIANO SCREEN 3 [facility] RBC EACH INC INC SERUM TECHNIQUE BLOOD 64115 ANKITA LUCIANO TYPING 3 [facility] SEROLOGIC INC INC ABO BLOOD 89778 ANKITA LUCIANO TYPING 3 [facility] SEROLOGIC INC INC RH (D) THERAPEUT 18943 ANKITA LUCIANO IC 3 [facility] PROPHYLAC INC INC TIC/DX INJECTION SUBQ/IM BLOOD 64255 ANKITA LUCIANO COUNT 3 [facility] COMPLETE INC INC AUTO&AUTO DIFRNTL WBC INJECTION J2790 ANKITA LUCIANO RHO D IG 3 [facility] HUMAN INC INC FULL DOSE 300 MCG GLUCOSE 31755 ANKITA LUCIANO POST 3 [facility] GLUCOSE INC INC DOSE US PREG 78100 JORDANA R HARPEL UTERUS 3 CRUZ MUÑOZ AFTER 1ST TRIMEST GESTATION COLPOSCOP 58428 JORDANA R HARPEL Y CERVIX 3 CRUZ MUÑOZ BX CERVIX & ENDOCRV CURRETAGE US PREG 62148 JORDANA R HARPEL UTERUS 3 CRUZ MUÑ[place] [address] [place] [facility] ABDOMINAL 3 [facility] REAL IMAGING [place] W/[place] [address] ANKITA LUCIANO ESTRIOL 3 [facility] INC INC ALPHA-FET 10622 ANKITA LUCIANO OPROTEIN 3 [facility] SERUM INC INC GONADOTRO 73419 ANKITA LUCIANO PIN 3 [facility] CHORIONIC INC INC QUANTITAT ELKE GONADOTRO 04893 ANKITA LUCIANO PIN 3 [facility] CHORIONIC INC INC QUANTITAT [place] PREG 48073 [facility] REAL TIME IMAGING W/IMAGE ASS DCMTN TRANSVAG URINE 58811 ANKITA LUCIANO 3 [facility] TEST INC INC VISUAL COLOR CMPRSN METHS BLOOD 71041 ANKITA LUCIANO COUNT 3 [facility] COMPLETE INC INC AUTO&AUTO DIFRNTL WBC COLPOSCOP 88667 [facility] HARPEL Y CERVIX 3 PHYSICIAN WANDA BX CERVIX GROUP & PCC ENDOCRV CURRETAGE US PREG 69704 [facility] HARPEL UTERUS 3 PHYSICIAN WANDA REAL TIME GROUP W/IMAGE PCC DCMTN TRANSVAG CULTURE 92142 [facility] CHLAMYDIA 3 PHYSICIAN PHYSICIAN ANY GROUP GROUP SOURCE PCC PCC IADNA 34332 [facility] HARPEL NEISSERIA 3 PHYSICIAN WANDA GROUP GONORRHOE PCC AE DIRECT PROBE TQ IAADIADOO 53586 [facility] HARPEL 3 PHYSICIAN WANDA TRICHOMON GROUP PCC VAGINALIS IADNA 23644 [facility] HARPEL HERPES 3 PHYSICIAN WANDA SIMPLX GROUP VIRUS PCC DIRECT PROBE TQ URINE 35342 [facility] DEPT HLTH DEPT VISUAL VASILIY VASILIY COLOR CMPRSN METHS Encounters Encounter Start End Date Code Location Performer Type Date OFFICE 24833 [facility] STONE OUTPATIEN 7 7 PHYSICIAN T VISIT S GROUP 25 MINUTES EMERGENCY 56922 JULIAN DEMPSEY 7 7 [facility] HIGH/URGE NT SEVERITY HOSPITAL ANKITA - 6 6 [facility] OUTPATIEN [facility] EMERGENCY 75623 JULIAN DELGADILLO 6 6 PHYSICIAN [facility] T VISIT HIGH/URGE NT SEVERITY EMERGENCY 48354 ANKITA 6 6 [facility] T VISIT MODERATE SEVERITY HOSPITAL ANKITA - 6 6 [facility] OUTPATIEN [facility] EMERGENCY 28203 JULIAN DEMPSEY 6 6 PHYSICIAN YENI SA[facility] T VISIT MODERATE SEVERITY EMERGENCY 12895 [facility] 6 [facility] T VISIT LOW/MODER SEVERITY EMERGENCY 38798 JULIAN MOORE 6 6 PHYSICIAN HEMAN[facility] T VISIT HIGH/URGE NT SEVERITY HOSPITAL ANKITA - 6 6 [facility] OUTPATIEN INC T HOSPITAL ANKITA [facility] 6 6 [facility] OUTPATIEN INC T EMERGENCY 14740 [facility]KITA 6 6 [facility] T VISIT HIGH/URGE NT SEVERITY EMERGENCY 58215 JULIAN KRAMER DEPT 6 6 PHYSICIAN Leesa TIDWELL VISIT [facility] HIGH SEVERITY& THREAT FUNCJ OFFICE 13890 [facility] OUTPATIEN 5 5 PHYSICIAN MAREK T VISIT S GROUP 10 MINUTES EMERGENCY 75685 JULIAN DELGADILLO 5 5 PHYSICIAN MAREK DEPARTMEN S, [facility] T VISIT MODERATE SEVERITY HOSPITAL ANKITA - 5 5 [facility]PATI[facility] INC T OFFICE 41701 JORDANA ARROYO OUTPATIEN 5 5 [facility] T VISIT 15 MINUTES HOSPITAL ANKITA - 5 5 [facility] INPATIENT INC OFFICE 61470 JORDANA ARROYO OUTPATIEN 5 5 [facility] T VISIT 15 MINUTES HOSPITAL ANKITA - 5 5 [facility] OUTPATIEN [facility] ANKITA - 5 5 [facility] OUTPATIEN INC T OFFICE 27745 JORDANA ARROYO OUTPATIEN 5 5 [facility] T VISIT 15 MINUTES HOSPITAL ANKITA - 5 5 [facility]EN [facility] HOSPITAL ANKITA - 5 5 [facility] OUTPATIEN [facility] T OFFICE 37499 JORDANA ARROYO OUTPATIEN 5 5 [facility] T VISIT 15 MINUTES HOSPITAL ANKITA - 5 5 [facility]EN [facility] HOSPITAL ANKITA - 5 5 [facility] HOSPITAL ANKITA - 5 5 [facility] OUTPATIEN [facility] T OFFICE 89019 JORDANA ARROYO OUTPATIEN 5 5 [facility] T VISIT 15 MINUTES HOSPITAL ANKITA - 5 5 [facility] OUTPATIEN [facility] ANKITA - 5 5 [facility] OUTPATIEN INC T OFFICE 10473 JORDANA R HARPEL OUTPATIEN 5 5 [facility] ROBERT[facility] WANDA T VISIT 15 MINUTES HOSPITAL ANKITA - 5 5 [facility] OUTPATIEN INC T OFFICE 48856 JORDANA Kelley HARPEL OUTPATIEN 4 4 [facility] WANDA T VISIT 15 MINUTES HOSPITAL ANKITA - 4 4 [facility] OUTPATIEN INC T HOSPITAL ANKITA - 4 4 [facility] OUTPATIEN INC T OFFICE 08044 HARPEL HARPEL OUTPATIEN 4 4 WANDA WANDA T VISIT 15 MINUTES EMERGENCY 98887 ALFARIS ALFARIS 4 4 [facility] DEPARTMEN T VISIT MODERATE SEVERITY EMERGENCY 94335 ANKITA 4 4 [facility] INC T VISIT LOW/MODER SEVERITY HOSPITAL ANKITA - 4 4 [facility] OUTPATIEN INC T OFFICE 12824 HARPEL HARPEL OUTPATIEN 4 4 WANDA WANDA T VISIT 15 MINUTES OFFICE 89489 HARPEL HARPEL OUTPATIEN 4 4 WANDA WANDA T VISIT 15 MINUTES HOSPITAL ANKITA - 4 4 [facility] OUTPATIEN INC T EMERGENCY 62638 LEONA DELGADILLO 4 4 [facility] DEPARTMEN T VISIT MODERATE SEVERITY OFFICE 35594 HARPEL HARPEL OUTPATIEN 4 4 WANDA WANDA T VISIT 15 MINUTES OFFICE 55846 JORDANA Kelley HARPEL OUTPATIEN 4 4 [facility] WANDA T VISIT 15 MINUTES EMERGENCY 17699 JESSIE ROMAN 4 4 [facility]URGE NT SEVERITY OFFICE 52385 JORDANA Kelley HARPEL OUTPATIEN 4 4 [facility]ERT[facility] WANDA T VISIT 15 MINUTES PERIODIC 06537 HARPE[facility] HARPEL PREVENTIV 4 4 WANDA WANDA E MED EST PATIENT YRS OFFICE 07952 PENDELETO PENDELETO OUTPATIEN 4 4 N [place] N [place] T VISIT [address] CENTER MINUTES OFFICE 88810 JORDANA AMANDAPEL OUTPATIEN 3 3 CRU[facility] MUÑOZ T VISIT 15 MINUTES HOSPITAL ANKITA - 3 3 [facility] OUTPATIEN INC T EMERGENCY 78970 BEBETO DELGADILLO DEPT 3 3 EMERGENCY [facility] VISIT SERVICES HIGH SEVERITY& THREAT [facility] ANKITA - 3 3 [facility] OUTPATIEN INC T OFFICE 43497 SIVAKUMAR SHAVER JR CONSULTAT 3 3 OMAR OMAR ION NEW/ESTAB PATIENT 60 MIN OFFICE 38663 JORDANA Kelley HARPEL OUTPATIEN 3 3 CRU[facility] MUÑOZ T VISIT 15 MINUTES HOSPITAL ANKITA - 3 3 [facility] INPATIENT INC OFFICE 46549 JORDANA Kelley HARPEL OUTPATIEN 3 3 CR[facility]ÑOZ T VISIT 15 MINUTES OFFICE 51403 JORDANA AMANDAPEL OUTPATIEN 3 3 [facility] T VISIT 15 MINUTES OFFICE 78505 JORDANA Kelley HARPEL OUTPATIEN 3 3 CRU[facility] MUÑOZ T VISIT 15 MINUTES OFFICE 53371 JORDANA AMANDAPEL OUTPATIEN 3 3 [facility] MUÑOZ T VISIT 15 MINUTES OFFICE 34827 JORDANA AMANDAPEL OUTPATIEN 3 3 [facility] MUÑOZ T VISIT 15 MINUTES OFFICE 51742 JORDANA AMANDAPEL OUTPATIEN 3 3 [facility]Z T VISIT 15 MINUTES HOSPITAL ANKITA - 3 3 [facility] 66872 [facility] [address] [facility] [address] T VISIT MODERATE SEVERITY OFFICE 33218 JORDANA AMANDAPEL OUTPATIEN 3 3 CRUZ MUÑOZ T VISIT 15 MINUTES OFFICE 15027 JORDANA MEZAL OUTPATIEN 3 3 CR[facility] MUÑOZ T VISIT 15 MINUTES HOSPITAL ANKITA - 3 3 [facility] OUTPATIEN INC T OFFICE 67504 JORDANA MEZAL OUTPATIEN 3 3 [facility] ROBERT[facility] WANDA T VISIT 15 MINUTES OFFICE 25090 JORDANA Kelley HARPEL OUTPATIEN 3 3 [facility]ERT[facility] WANDA T VISIT 15 MINUTES OFFICE 92654 JORDANA AMANDAPEL OUTPATIEN 3 3 [facility] WANDA T VISIT 15 MINUTES HOSPITAL ANKITA - 3 3 [facility] OUTPATIEN INC T OFFICE 29571 JORDANA MEZAL OUTPATIEN 3 3 [facility]ERT[place] WANDA T VISIT 15 MINUTES OFFICE 66807 JORDANA AMANDAPEL OUTPATIEN 3 3 [facility] WANDA T VISIT 15 MINUTES HOSPITAL ANKITA - 3 3 [facility] OUTPATIEN INC T OFFICE 84923 [facility] HARPEL OUTPATIEN 3 3 PHYSICIAN WANDA T VISIT GROUP 15 PCC MINUTES HOSPITAL ANKITA - 3 3 [facility]EN [facility] - 3 3 [facility] C[facility] OFFICE [address] ST OUTPATIEN 3 3 [facility] T VISIT MEDICAL 10 CENTER MINUTES OFFICE 76857 JORDANA MEZAL OUTPATIEN 3 3 CRU[facility] MUÑOZ T VISIT 15 MINUTES OFFICE 56093 [facility] HARPEL OUTPATIEN 3 3 PHYSICIAN WANDA T VISIT GROUP 15 PCC MINUTES HOSPITAL ANKITA - 3 3 [facility] OUTPATIEN INC T EMERGENCY 51505 BEBETO GOMEZER 3 3 [facility]ISIT HIGH/URGE NT SEVERITY OFFICE 90692 [facility] CRUZ OUTPATIEN 3 3 PHYSICIAN WANDA T VISIT GROUP 15 PCC MINUTES OFFICE 98621 [facility] CRUZ OUTPATIEN 3 3 PHYSICIAN WANDA T VISIT GROUP 15 PCC MINUTES INITIAL 47295 [facility] CRUZ PREVENTIV 3 3 PHYSICIAN WANDA E GROUP MEDICINE PCC NEW PT AGE 18-39YRS OFFICE 51615 [facility] 3 3 [facility] T NEW 20 HLTH DEPT HLTH [facility]PT MINUTES [facility]
--- OUTSIDE RECORDS SUMMARY | 2017-02-02 09:14 | External Medical Summary Rpt ---
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 Name Role Phone ALFARIS MOH, ALFARIS Unavailable [...] Unavailable Unavailable INC, [facility] Unavailable Unavailable [facility], [facility], Unavailable Unavailable [facility] Unavailable Unavailable [facility]ING [facility], [facility] WANG MANUEL, WANG Unavailable Unavailable MANUEL [facility], Unavailable Unavailable [facility], Unavailable Unavailable [facility] Unavailable Unavailable SERVICES, [facility] PATHAK OTILIA, PATHAK OTILIA Unavailable Unavailable [facility], Un[facility]available [facility], [facility] Unavailable Unavailable LAB, [facility] Unavailable Unavailable CENTER, [facility] Unavailable Unavailable CENTER, [facility], Unavailable Unavailable [facility] VICKIE TOD, VICKIE TOD Unavailable Unavailable RENUSCH, RENUSCH Unavailable Unavailable RENUSCH YENI, RENUSCH Unavailable Unavailable YENI [facility] SADEK MOH Unavailable Unavailable SELPH [facility], SELPH SCO Unavailable Unavailable SOTINGEACharlieU DIANN, Unavailable Unavailable SOWINSTON ZHUMAN SHE, Unavailable Unavailable TYLER JUDSON [facility], Unavailable Unavailable [facility] Unavailable Unavailable CENTER, [facility], STONE Unavailable Unavailable [facility] Unavailable Unavailable [facility] Unavailable Unavailable [facility] Unavailable Unavailable DEPT V[facility], [facility] Unavailable Unavailable DEPT V[facility]ILIY, [facility] ANDREW RAYMUNDO, ANDREW Unavailable Unavailable RAYMUNDO Purpose Continuity of Care Document - 10-06-2012 through 2016 Problems Code Diagnosis DOS Provider Status R05 COUGH 12-30-2016 [facility] M5417 RADICULOPAT 11-09-2016 [facility] PHYSICIANS LUMBOSACRAL GROUP REGION M5442 LUMBAGO 10-29-2016 [facility] WITH [facility]ICI[facility], SCIATICA PLLC LEFT SIDE K5289 OTH SPEC 08-03-2016 [facility] NONINFECTIV [facility]IANS, E PLLC GASTROENTER ITIS & COLITIS K529 NONINFECTIV 08-03-2016 [facility] GASTROENTER INC ITIS & COLITIS UNS M722 PLANTAR 04-20-2016 [facility] FASCIAL [facility]YSICIANS, FIBROMATOSI PLLC S M2669 OTHER 04-05-2016 [facility] 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 B725CMQ DISLOCATION 04-05-2016 [facility] OF JAW PHYSICIANS, INITIAL PLLC ENCOUNTER G126GKY SPRAIN 04-05-2016 [facility] LIGAMENTS PHYSICIANS, T-SPINE PLLC INITIAL ENCOUNTER Z720 TOBACCO USE 04-05-2016 [facility] Z0100 ENCOUNTER 01-28-2016 [facility] EXAM EYES & GRE VISION W/O ABNORMAL FIND B75116 MIGRAINE 10-10-2015 [facility] UNS NOT PHYSICIANS, INTRACT W/O PLLC STATUS MIGRAINOSUS R0789 OTHER CHEST 10-10-2015 [facility] PAIN PHYSICIANS, PLLC 09384 OTHER&UNSPE 05-12-2015 [facility] CIFIED DISC PHYSICIANS, DISORDER PLLC CERVICAL REGION 08441 OTHER 04-16-2015 [facility] MALAISE [facility] FATIGUE INC 10733 OTHER SIGN 11-01-2014 JORDANA Kelley AND LU ARROYO MD IN BREAST 31584 BREECH 10-25-2014 [facility] PRESENTATIO ANESTH OF N W/O THE BLUE MENTION VERSION DELIV 98467 PREV C/S 10-25-2014 [facility] DELIV DELIV PHYSICIANS W/WO GROUP MENTION ANTPRTM COND V252 STERILIZATI 10-25-2014 [facility] ON [facility] V270 OUTCOME OF 10-25-2014 [facility] DELIVERY PHYSICIANS SINGLE GROUP LIVEBORN V7269 OTHER 10-25-2014 [facility] CLARY & EXAMINATION DUBILIER V221 SUPERVISION 10-19-2014 JORDANA Kelley OF OTHER [place] NORMAL 94207 PREMATURE 10-18-2014 [facility] RUPTURE [facility] MEMBRANES INC ANTEPARTUM 78702 OTHER 10-14-2014 JORDANA ARROYO MD LABOR, ANTEPARTUM 98942 EDEMA OR 10-14-2014 [facility] EXCESSIVE [facility] WEIGHT GAIN INC ANTEPARTUM 36200 THREATENED 10-08-2014 [facility] PREMATURE PHYSICIANS LABOR GROUP ANTEPARTUM 16236 OTHER 10-07-2014 [facility] SPECIFED [facility] COMPLICATIO INC N ANTEPARTUM V286 SCREENING 10-05-2014 [facility] OF [facility] STREPTOCOCC INC US B V771 SCREENING 09-27-2014 [facility] FOR [facility] DIABETES INC MELLITUS 7910 PROTEINURIA 09-25-2014 [facility] 30304 DECR 09-07-2014 JORDANA ARROYO MD MGMT MOTH ANTPRTM COND/COMP V285 08-13-2014 [facility] SCREENING [facility] FOR INC ISOIMMUNIZA TION 7840 HEADACHE 07-20-2014 [facility] 77491 ABDOMINAL 07-20-2014 [facility] PAIN, [facility] UNSPECIFIED INC SITE 4659 ACUTE URIS 07-10-2014 [facility] OF [facility] UNSPECIFIED INC SITE 7291 UNSPECIFIED 07-10-2014 ALFARIS MOH MYALGIA AND MYOSITIS V2889 OTHER 05-24-2014 [facility] SPECIFIED [facility] INC SCREENING 490 BRONCHITIS 05-13-2014 LEONA MAREK NOT SPECIFIED ACUTE OR CHRONIC 57060 EFFUSION OF 04-15-2014 [place] 20133 PAIN IN 04-15-2014 [place] JOINT, MEDICAL LOWER [facility] 8449 SPRAIN&STRA 04-15-2014 [facility] IN OF UNSPECIFIED SITE OF KNEE&LEG 72224 UNSPECIFIED 04-15-2014 [facility] SITE OF ANKLE SPRAIN AND STRAIN 9597 INJURY 04-15-2014 [place] OTHER&UNSPE MEDICAL CIFIED KNEE IMAGING ASS LEG ANKLE&FOOT E8888 OTHER FALL 04-15-2014 [facility] 6268 OTH D/O 03-23-2014 [facility] MEN[facility] N&OTH ABN BLEED FE GNT TRACT V704 EXAMINATION 03-23-2014 [facility] FOR REFERNCE MEDICOLEGAL LABORATORIE REASON S V7231 ROUTINE 03-23-2014 HARPE[facility] WANDA GYNECOLOGIC AL EXAMINATION V7242 03-15-2014 [facility] POSITIVE RESULT V242 ROUTINE 07-25-2013 JORDANA Kelley [place] FOLLOW-UP 60900 CALCU 2013 PATHOLOGY & [facility] CYTOLOGY W/OTH LAB CHOLECYST W/O MENTION OBST 19927 CALCU 2013 [place] [facility] MEDICAL W/O MENTION IMAGING ASS CHOLECYST/O BST 58330 ACUTE AND 2013 SIVAKUMAR SIMPSON CHRONIC OMAR CHOLECYSTIT IS 5756 CHOLESTEROL 2013 PATHOLOGY & OSIS OF CYTOLOGY [facility] LAB 5759 UNSPECIFIED 06-25-2013 [facility] EMERGENCY OF SERVICES GALLBLADDER 27452 ABDOMINAL 06-25-2013 [facility] PAIN RIGHT EMERGENCY UPPER SERVICES QUADRANT 11817 CALCU BD 06-20-2013 ALLLAISHA SIMPSON W/OTH OMAR CHOLECYST W/O MENTION OBSTRUCTION 5758 OTHER 06-20-2013 SIVAKUMAR SIMPSON SPECIFIED OMAR DISORDER OF GALLBLADDER V2502 GENERAL 06-06-2013 JORDANA ARROYO MD INITIATION OTH CONTRACEPT MEASURES V2509 OT GENERAL 06-06-2013 JORDANA ARROYO MD CNSL&ADVICE CONTRACEPT MANAGEMENT V5832 ENCOUNTER 06-06-2013 JORDANA Kelley FOR REMOVAL [place] OF SUTURES 36295 PREMATURE 06-02-2013 JORDANA Kelley SEPARATION [place] OF PLACENT[place] WITH DELIVERY 56978 C/S DELIV 06-02-2013 JORDANA Kelley W/O INDICAT [place] DELIV W/WO ANTPRTM COND 1942 UNSPECIFIED 05-30-2013 [facility] 46050 UNSPECIFIED 05-30-2013 [place] ANTEPARTUM MEDICAL HEMORRHAGE IMAGING ASS ANTEPARTUM 59422 BREECH 05-30-2013 [place] PRESENT[facility]IO MEDICAL N W/O IMAGING ASS MENTION VERSION ANTPRTM 65528 OTH 05-30-2013 [facility] PLACENTAL CLARY & CONDS DUBILIER AFFECT MANAGEMENT MOTH DELIV 4660 ACUTE 05-10-2013 [facility] 60540 OT CURRENT 04-30-2013 JORDANA ARROYO MD CLASSIFIABL E ELSW ANTPRTM 9222 CONTUSION 04-30-2013 JORDANA LOTT MD ABDOMINAL WALL 74795 DYSPLASIA 02-20-2013 JORDANA ESTRADA CERVIX [place] UNSPECIFIED 49132 GALLSTONE 01-25-2013 [facility]US [facility] V222 12-18-2012 [facility] 65338 THREATENED 11-12-2012 [facility] UNSPECIFIED SERVICES EPISODE CARE 93393 THREATENED 11-12-2012 [facility] , [facility] ANTEPARTUM INC 10685 UNSPEC 11-12-2012 [place] HEMORRHAGE MEDICAL EARLY IMAGING ASS ANTEPARTUM 01972 OT CURRENT 11-12-2012 [facility] MATERNAL EMERGENCY CCE-COMPL SERVICES PG CB/PP-UNS EOC 14033 OT 10-27-2012 [facility] PLACENTAL PHYSICIAN CONDS GROUP PCC AFFECT MGMT MOTH ANTPRTM 44500 OBESITY, 10-17-2012 [facility] UNSPECIFIED PHYSICIAN GROUP PCC 6260 ABSENCE OF 10-17-2012 [facility] MENSTRUATIO PHYSICIAN N GROUP PCC V2689 OTHER 10-06-2012 [facility] SPECIFIED DISTRICT [facility] DEPT MANAGEMENT VASILIY Medications Na ND Rx Da Fi Fi Am Da Di Ph RX Ph St me C No te ll ll ou ys ag ar # ys at rm s nt no ma ic us Or Da si cy ia de te s n re d [place] 59 04 05 6. 5 00 [facility] IT 76 -2 -1 00 00 L- ti HR 23 6- 9- 0 07 MA ve OM 06 20 20 48 RT YC 00 17 17 45 IN 1 06 PH AR 25 MA 0 CY MG #5 TA 91 BL ET AL 00 04 05 10 5 00 [facility] ED 14 -2 -1 .0 00 L- ti NI 39 6- 9- 00 07 MA ve SO 73 20 20 48 RT NE 80 17 17 45 5 07 PH 20 AR MA MG CY TA #5 BL 91 ET BE 68 04 05 15 5 00 [facility] NZ 38 -2 -1 .0 00 [...] 03 03 28 14 00 [place] Ac AL 16 -0 -3 .0 00 L- ti [...] 47 RT ZA 89 17 17 44 AL 0 33 PH IN AR E MA 10 CY MG #5 91 TA BL ET ME 59 03 03 21 6 00 [place] Ac TH 74 -0 -3 .0 00 L- ti YL 60 6- 1- 00 07 MA ve AL 00 20 20 47 RT ED 10 [...] 1 14 PH CE AR TA MA SC CY NO PH #5 EN 91 5- 32 5 AL 59 02 03 27 7 00 WA [...] 47 RT ZA 89 17 17 25 AL 0 31 PH IN AR E MA 10 CY MG #5 91 TA BL ET HY 00 02 03 [address] 40 -2 -2 .0 00 L- ti OC 60 3- 4- 00 02 MA ve OD 12 20 20 23 RT ON 30 17 17 92 -A 1 64 PH CE AR TA MA SC CY NO PH #5 EN 91 5- [...] Procedure DOS Code Location Performer Comment RADIOLOGI 02269 [facility] C EXAM 7 MEDICAL CHEST 2 IMAGING VIEWS ASS FRONTAL&L ATERAL THERAPEUT 59147 [facility] STONE IC 7 PHYSICIAN PROPHYLAC S GROUP TIC/DX INJECTION SUBQ/IM INJECTION J1040 [facility] 7 PHYSICIAN PHYSICIAN METHYLPRE S GROUP S GROUP DNISOLONE ACETATE 80 MG RADEX 23555 [facility] SPINE 7 PHYSICIAN LUMBOSACR S, PLLC AL MINIMUM 4 VIEWS THERAPEUT 30417 [facility] LUCIANO IC 6 [facility] PROPHYLAC INC INC TIC/DX INJECTION SUBQ/IM OPHTH 70545 [facility] 6 GRE GRE XM&EVAL COMPRE NEW PT 1/> VST ECG 24701 [facility] LUCIANO ROUTINE 6 [facility] ECG INC INC W/LEAST 12 LDS TRCG ONLY W/O I&R CREATINE 39651 [facility] LUCIANO KINASE 6 [facility] TOTAL INC INC COMPREHEN 61126 [facility]ITA LUCIANO SIVE 6 [facility] METABOLIC INC INC PANEL CREATINE 63038 ANKITA LUCIANO KINASE MB 6 MEM H[facility] FRACTION INC INC ONLY THER 49816 [facility] LUCIANO PROPH/DX 6 [facility] NJX IV INC INC PUSH SINGLE/1S T SBST/[place] [address] ANKITA LUCIANO TROPONIN 6 [facility] QUANTITAT INC INC ELKE ECG 83294 DHRUV HAZELSON ROUTINE 6 ANTONY ANTONY ECG W/LEAST 12 LDS I&R ONLY BLOOD 74238 [facility]ITA LUCIANO COUNT 6 [facility] COMPLETE INC INC AUTO&AUTO DIFRNTL WBC THERAPEUT 61364 ANKITA LUCIANO IC 6 [facility] INJECTION INC INC IV PUSH EACH NEW DRUG BLOOD 94015 [facility]ITA LUCIANO COUNT 5 [facility] COMPLETE INC INC AUTO&[place] [address] ANKITA ANKITA FOLIC 5 [facility] ACID INC INC SERUM COMPREHEN 81850 ANKITA LUCIANO SIVE 5 [facility] METABOLIC INC INC PANEL 25 12372 ANKITA LUCIANO HYDROXY 5 MEM [facility] INCLUDES [place] [address] ANKITAVIVIANE LUCIANO THYROXINE 5 MEM HOS[facility] TOTAL INC INC CYANOCOBA 16938 ANKITA HARIRSON PRASANNA 5 [facility] VITAMIN INC INC B-12 COLLECTIO 29961 ANKITA LUCIANO N VENOUS 5 MEM [facility] [place] [address] ANKITA LUCIANO THYROID 5 [facility] STIMULATI INC INC NG HORMONE TSH 53674 [facility] VICKIE TOD DELIVERY 5 PHYSICIAN ONLY S GROUP ANESTHESI 34974 [facility] A 5 ANESTH SHE OF THE DELIVERY BLUE ONLY 22009 JORDANA ARROYO DELIVERY 5 [place] WANDA B[place] [address] [facility] PICKLESIM SURG 5 CLARY & RADHA SIMPSON [facility] PATHOLOGY DUBILIER GROSS&MAREK ROSCOPIC EXAM OTH 6639 [facility]ITA LUCIANO BILATERAL 5 [facility] INC INC DESTRUC/O CCLUSION FALLOPIAN TUBES LOW 741 ANKITA LUCIANO CERVICAL 5 [facility] INC INC SECTION EVAL C/V 91130 [facility] LUCIANO AMNIOTIC 5 [facility] FLUID INC INC PROTEIN QUAL EA SPECIMEN 25506 ANKITA LUCIANO NONSTRESS 5 [facility] TEST INC INC 46238 [facility] NONSTRESS 5 PHYSICIAN ALEX TEST S GROUP 11135 ANKITA HARRISON NONSTRESS 5 [facility] TEST INC INC COLLECTIO 51533 ANKITA LUCIANO N VENOUS 5 [facility] BLOOD INC INC VENIPUNCT URE THERAPEUT 21972 ANKITA LUCIANO IC 5 [facility] PROPHYLAC INC INC TIC/DX INJECTION SUBQ/IM URNLS DIP 88270 ANKITA LUCIANO 5 [facility] STICK/TAB INC INC LET REAGENT AUTO MICROSCOP Y URNLS DIP 69227 ANKITA LUCIANO 5 [facility] STICK/TAB INC [place] [address] [facility] LUCIANO INFUSION 5 [facility] THERAPY/P INC INC ROPHYLAXI S /DX 1ST TO 1 HR 38492 [facility] LU[facility]ANO NONSTRESS 5 [facility] TEST INC INC 82449 [facility] NONSTRESS 5 [place] [address] ANKITA LUCIANO INFUSION 5 [facility] THERAPY/P INC INC ROPHYLAXI S /DX 1ST TO 1 HR URNLS DIP 78921 [facility]ITA LUCIANO 5 [facility] STICK/TAB INC INC LET REAGENT AUTO MICROSCOP Y CULTURE 14601 ANKITA ANKITA BACTERIAL 5 [facility] INC INC QUANTTATI VE COLONY COUNT URINE 47266 ANKITA HARRISON NONSTRESS 5 [facility] TEST INC INC PARTICLE 66836 [facility] LUCIANO AGGLUTINA 5 [facility] TION INC INC SCREEN EACH ANTIBODY CUL 09477 JORDANA ARROYO PRSMPTV 5 [facility] PTHGNC ORGANISM SCRN W/COLONY ESTIMJ CULTURE 31249 ANKITA ANKITA BACTERIAL 5 [facility] INC INC QUANTTATI VE COLONY COUNT URINE 74535 ANKITA HARRISON NONSTRESS 5 [facility] TEST INC INC THERAPEUT 54206 ANKITAVIVIANE LUCIANO IC 5 [facility] PROPHYLAC INC INC TIC/DX INJECTION SUBQ/IM URNLS DIP 61813 ANKITA HARRISON 5 [facility] STICK/TAB INC INC LET REAGENT AUTO MICROSCOP Y GLUCOSE 81343 ANKITAVIVIANE LUCIANO QUANTITAT 5 [facility] BLOOD INC INC XCPT REAGENT STRIP COLLECTIO 50480 ANKITA LUCIANO N VENOUS 5 [facility] BLOOD INC INC VENIPUNCT URE EVAL C/V 92040 ANKITA LUCIANO AMNIOTIC 5 [facility] FLUID INC INC PROTEIN QUAL EA SPECIMEN 72443 ANKITA HARRISON NONSTRESS 5 [facility] TEST INC INC CULTURE 52661 ANKITA ANKITA BACTERIAL 5 [facility] INC INC QUANTTATI VE COLONY COUNT URINE URNLS DIP 62853 ANKITA LUCIANO 5 [facility] STICK/TAB INC [place] [address] ANKITA LUCIANO INFUSION 5 [facility] HYDRATION INC INC INITIAL 31 MIN-[place] [address] ANKITA LUCIANO INFUSION 5 [facility] HYDRATION INC INC EACH ADDITIONA L HOUR THERAPEUT 77131 ANKITA HARRISON IC 5 [facility] PROPHYLAC INC INC TIC/DX INJECTION SUBQ/IM FTL 96383 ANKITA LUCIANO FIBRONECT 5 [facility] IN INC INC CERVICOVA G SECRETION S SEMI-ELMER URNLS DIP 97571 ANKITA ANKITA 5 [facility] STICK/TAB INC INC LET REAGENT AUTO MICROSCOP Y CULTURE 28301 ANKITA LUCIANO BACTERIAL 5 [facility] INC INC QUANTTATI VE COLONY COUNT URINE 77252 JORDANA ARROYO NONSTRESS 5 [facility] TEST EVAL C/V 83559 ANKITA LUCAINO AMNIOTIC 5 [facility] FLUID INC INC PROTEIN QUAL EA SPECIMEN TOBACCO 64559 ANKITA LUCIANO USE 5 [facility] CESSATION INC INC INTERMEDI ATE 3-10 MINUTES 15484 ANKITA LUCIANO NONSTRESS 5 [facility] TEST INC INC THERAPEUT 10702 ANKITA LUCIANO IC 5 [facility] PROPHYLAC INC INC TIC/DX INJECTION SUBQ/IM URNLS DIP 92970 ANKITA LUCIANO 5 [facility] STICK/TAB INC INC LET REAGENT AUTO MICROSCOP Y 41264 JORDANA ARROYO NONSTRESS 5 [place] WANDA TEST CULTURE 97361 [facility]KITA LUCIANO BACTERIAL 5 [facility] INC INC QUANTTATI VE COLONY COUNT URINE BLOOD 61383 ANKITA LUCIANO TYPING 4 [facility] SEROLOGIC INC INC RH (D) COLLECTIO 72836 ANKITA LUCIANO N VENOUS 4 [facility]OSP BLOOD INC INC VENIPUNCT URE ANTIBODY 46547 ANKITA LUCIANO SCREEN 4 [facility]OS[facility] RBC EACH INC INC SERUM TECHNIQUE BLOOD 54846 ANKITA LUCIANO TYPING 4 [facility]OSP SEROLOGIC INC INC ABO THERAPEUT 24210 ANKITA LUCIANO IC 4 [facility]OSP PROPHYLAC INC INC TIC/DX INJECTION SUBQ/IM INJECTION J2790 ANKITA LUCIANO RHO D IG 4 [facility]OSP HUMAN INC INC FULL DOSE 300 MCG 95627 JORDANA ARROYO NONSTRESS 4 [place] WANDA TEST 97369 [facility] NONSTRESS 4 PHYSICIAN ALEX TEST S GROUP URNLS DIP 54914 ANKITA LUCIANO 4 [facility] STICK/TAB INC INC LET REAGENT AUTO MICROSCOP Y FTL 20252 ANKITA LUCIANO FIBRONECT 4 [facility] IN INC INC CERVICOVA G SECRETION S SEMI-ELMER IAADI 28367 ANKITA LUCIANO INFLUENZA 4 [facility] B VIRUS INC INC IAADI 32467 ANKITA LUCIANO INFFLUENZ 4 [facility] A A VIRUS INC INC US PREG 31480 [facility] UTERUS 4 WANDA WANDA AFTER 1ST TRIMEST GESTATION ALPHA-FET 37340 ANKITA LUCIANO OPROTEIN 4 [facility] [place] [address] ANKITA LUCIANO ESTRIOL 4 [facility] INC INC GONADOTRO 24272 ANKITA LUCIANO PIN 4 [facility] CHORIONIC INC INC QUANTITAT [place]KE RADIOLOGI 09246 [place] [facility]AIL C 4 MEDICAL GRACE EXAMINATI IMAGING ON KNEE 3 ASS VIEWS CRTCHS E0114 BREG INC. BREG INC. UNDARM 4 OTH THAN WOOD PAIR PAD TIP&[place] [address] JORDANA ARROYO TRANSVAGI 4 [facility] NAL IADNA 03050 BIO BIO CHLAMYDIA 4 REFERNCE REFERNCE LABORATOR LABORATOR TRACHOMAT IES IES IS AMPLIFIED PROBE TQ IADNA 05446 JORDANA ARROYO HERPES 4 [facility] SIMPLX VIRUS DIRECT PROBE TQ IADNA NOS 00896 BIO BIO 4 REFERNCE REFERNCE AMPLIFIED LABORATOR LABORATOR PROBE TQ IES IES EACH ORGANISM URINLS 46754 JORDANA ARROYO DIP 4 [facility] STICK/TAB LET REAGNT NON-AUTO MICRSCPY IADNA 86760 BIO BIO TRICHOMON 4 REFERNCE REFERNCE LABORATOR LABORATOR VAGINALIS IES IES AMPLIFIED PROBE TECH IAADIADOO 77765 JORDANA SILVEIRA R 4 CR[facility] AR[facility] MD TRICHOMON VAGINALIS IADNA 74367 BIO BIO VIRAJ 4 REFERNCE REFERNCE SPECIES LABORATOR LABORATOR AMPLIFIED IES IES PROBE TQ IADNA 91866 BIO BIO GARDNEREL 4 REFERNCE REFERNCE LA LABORATOR LABORATOR VAGINALIS IES IES AMPLIFIED PROBE TQ CYTP C/V 45733 BIO BIO AUTO THIN 4 REFERNCE REFERNCE LYR LABORATOR LABORATOR PREPJ SCR IES IES MNL RESCR PHYS CULTURE 64709 JORDANA ARROYO CHLAMYDIA 4 [place] WANDA ANY SOURCE IADNA 97462 JORDANA ARROYO NEISSERIA 4 [facility] GONORRHOE AE DIRECT PROBE TQ IADNA 51961 BIO BIO NEISSERIA 4 REFERNCE REFERNCE LABORATOR LABORATOR GONORRHOE IES IES AE AMPLIFIED PROBE TQ IADNA 85213 BIO BIO HERPES 4 REFERNCE REFERNCE SOMPLX LABORATOR LABORATOR VIRUS IES IES AMPLIFIED PROBE TQ URINE 63171 JORDANA ARROYO 4 [place] WANDA TEST VISUAL COLOR CMPRSN METHS URINE 22737 [facility] PENDELETO 4 N CO N CO TEST [facility] [place] [address] ANKITA LUCIANO INFUSION 3 [facility] THERAPY INC INC PROPHYLAX IS/DX EA HOUR INJECTION J2405 ANKITA HARRISON 3 [facility] ONDANSETR INC INC ON HCL PER 1 MG LOCM Q9967 ANKITA HARRISON 300-399 3 [facility] MG/ML INC INC IODINE CONCENTRA TION PER ML LAPS SURG 12263 SIVAKUMAR JR SIVAKUMAR JR 3 OMAR OMAR CHOLECYST ECTOMY W/CHOLANG IOGRAPHY X-RAY 06217 [place] [facility] URINARY 3 MEDICAL GRACE TRACT IMAGING EXAM WITH ASS CONTRAST MATERIAL URETHROCY 93631 ANKITA LUCIANO STOGRAPHY 3 [facility] INC INC RETROGRAD E RS&I ANES 33320 COMMUNITY PATHAK OTILIA INTRAPERI 3 ANESTH TONEAL OF THE UPPER BLUE ABDOMEN W/LAPS NOS HEPATIC 56991 ANKITA LUCIANO FUNCTION 3 [facility] PANEL INC INC LEVEL III 72158 PATHOLOGY WANG SURG 3 & MANUEL PATHOLOGY CYTOLOGY LAB GROSS&MAREK ROSCOPIC EXAM COMPREHEN 09319 ANKITA LUCIANO SIVE 3 [facility] METABOLIC INC INC PANEL BLOOD 91846 ANKITA LUCIANO COUNT 3 [facility] COMPLETE INC INC AUTO&[place] [address] [facility] ABDOMINAL 3 [facility] REAL IMAGING [place] W/[place] [address] [facility] [facility] ABDOMINAL 3 [facility] REAL IMAGING TIME ASS W/IMAGE LIMITED RADEX ABD 36624 [facility] COMPL 3 [facility] AQT ABD IMAGING W/S/E/D ASS VIEWS 1 VIEW [facility] 56263 JORDANA ARROYO DISCHARGE 3 [facility] W[facility]DA DAY MANAGEMEN T 30 MIN/< SBSQ 60170 [facility] 3 [facility] WANDA CARE/DAY 15 MINUTES SBSQ 23627 [facility] CARE/DAY 15 MINUTES 88492 JORDANA ARROYO BIOPHYSIC 3 CRUZ MUÑOZ AL PROFILE NON-[place] [address] [facility] [facility] MAREK SURG 3 CLARY & PATHOLOGY KARLAILIRADHA GROSS&MAREK ROSCOPIC EXAM [place] PREG 40849 [facility] UTERUS 3 [facility] REAL TIME IMAGING W/IMAGE ASS DCMTN TRANSVAG ANESTHESI 37535 [facility] A 3 ANESTH OF THE DELIVERY BLUE ONLY 43846 JORDANA ARROYO DELIVERY 3 [facility] WNADA ONLY LOW 741 ANKITA LUCIANO CERVICAL 3 [facility] INC INC SECTION 52509 JORDANA ARROYO NONSTRESS 3 [facility] TEST 69990 JORDANA ARROYO NONSTRESS 3 [facility] TEST PARTICLE 43565 ANKITA LUCIANO AGGLUTINA 3 [facility] TION INC INC SCREEN EACH ANTIBODY CUL 06994 JORDANA ARROYO PRSMPTV 3 [facility] PTHGNC ORGANISM SCRN W/COLONY ESTIMJ 75861 JORDANA ARROYO NONSTRESS 3 [facility] TEST URNLS DIP 42040 ANKITA LUCIANO 3 [facility] STICK/TAB INC INC LET RGNT NON-AUTO W/O MICRSCP 14511 JORDANA ARROYO NONSTRESS 3 [facility] TEST ANTIBODY 66616 ANKITA LUCIANO SCREEN 3 [facility] RBC EACH INC INC SERUM TECHNIQUE BLOOD 54155 ANKITA LUCIANO TYPING 3 [facility] SEROLOGIC INC INC ABO BLOOD 18855 ANKITA LUCIANO TYPING 3 [facility] SEROLOGIC INC INC RH (D) THERAPEUT 91627 ANKITA LUCIANO IC 3 [facility] PROPHYLAC INC INC TIC/DX INJECTION SUBQ/IM BLOOD 73432 ANKITA LUCIANO COUNT 3 [facility] COMPLETE INC INC AUTO&AUTO DIFRNTL WBC INJECTION J2790 ANKITA LUCIANO RHO D IG 3 [facility] HUMAN INC INC FULL DOSE 300 MCG GLUCOSE 43812 ANKITA LUCIANO POST 3 [facility] GLUCOSE INC [place] PREG 20152 JORDANA R HARPEL UTERUS 3 [facility] MUÑOZ AFTER 1ST TRIMEST GESTATION COLPOSCOP 30722 JORDANA R HARPEL Y CERVIX 3 [facility] MUÑOZ BX CERVIX & [place]OCRV [place]RETAGE [place] PREG 73720 JORDANA R HARPEL UTERUS 3 [facility] MUÑ[place] [address] [facility] ABDOMINAL 3 [facility] REAL IMAGING TIME ASS W/[place] [address] ANKITA LUCIANO ESTRIOL 3 [facility] INC INC ALPHA-FET 27085 ANKITA LUCIANO OPROTEIN 3 [facility] SERUM INC INC GONADOTRO 79269 ANKITA LUCIANO PIN 3 [facility] CHORIONIC INC INC QUANTITAT [place]KE GONADOTRO 18518 ANKITA LUCIANO PIN 3 [facility] CHORIONIC INC [place] P[place] [address]164 [facility] UTERUS 3 [facility] REAL TIME IMAGING W/IMAGE ASS DCMTN TRANSVAG URINE 26210 ANKITA LUCIANO 3 PALM [facility] TEST INC INC VISUAL COLOR CMPRSN METHS BLOOD 49118 ANKITA LUCIANO COUNT 3 PALM [facility] COMPLETE INC INC AUTO&AUTO DIFRNTL WBC COLPOSCOP 90843 [facility] Y CERVIX 3 PHYSICIAN WANDA BX CERVIX GROUP & PCC ENDOCRV CURRETAGE US PREG 15020 [facility] UTERUS 3 PHYSICIAN WANDA REAL TIME GROUP W/IMAGE PCC DCMTN TRANSVAG CULTURE 06651 [facility] CHLAMYDIA 3 PHYSICIAN PHYSICIAN ANY GROUP GROUP SOURCE PCC PCC IADNA 56481 [facility] NEISSERIA 3 PHYSICIAN WANDA GROUP GONORRHOE PCC AE DIRECT PROBE TQ IAADIADOO 49253 [facility] 3 PHYSICIAN WANDA TRICHOMON GROUP PCC VAGINALIS IADNA 23036 [facility] HERPES 3 PHYSICIAN WANDA SIMPLX GROUP VIRUS PCC DIRECT PROBE TQ URINE 98070 [facility] HLTH DEPT VISUAL VASILIY VASILIY COLOR CMPRSN METHS Encounters Encounter Start End Date Code Location Performer Type Date OFFICE 13281 [facility] STONE OUTPATIEN 7 7 PHYSICIAN T VISIT S GROUP 25 MINUTES EMERGENCY 35303 JULIAN DEMPSEY 7 7 [facility] T VISIT HIGH/URGE NT SEVERITY HOSPITAL ANKITA - 6 6 [facility] OUTPATIEN [facility] EMERGENCY 13580 JULIAN DELGADILLO 6 6 PHYSICIAN MAREK [facility] T VISIT HIGH/URGE NT SEVERITY EMERGENCY 23876 ANKITA 6 6 [facility] T VISIT MODERATE SEVERITY HOSPITAL ANKITA - 6 6 [facility] EMERGENCY 19368 JULIAN DEMPSEY [address] [facility] T VISIT MODERATE SEVERITY EMERGENCY 61702 [facility] T VISIT LOW/MODER SEVERITY EMERGENCY 83251 JULIAN MOORE [address] T VISIT HIGH/URGE NT SEVERITY HOSPITAL ANKITA - 6 6 [facility] INC T HOSPITAL ANKITA - 6 6 [facility] OUTPATIEN INC T EMERGENCY 34091 [facility] T VISIT HIGH/URGE NT SEVERITY EMERGENCY 14985 JULIAN KRAMER DEPT 6 6 PHYSICIAN Leesa TIDWELL VISIT [facility] HIGH SEVERITY& THREAT FUNCJ OFFICE 68331 [facility] LEONA OUTPATIEN 5 5 PHYSICIAN MAREK T VISIT S GROUP 10 MINUTES EMERGENCY 54692 JULIAN DELGADILLO 5 5 PHYSICIAN MAREK [facility] S, [facility] T VISIT MODERATE SEVERITY HOSPITAL ANKITA - 5 5 [facility] OUTPATI[facility] INC T OFFICE 82328 JORDANA ARROYO OUTPATIEN 5 5 [facility] T VISIT 15 MINUTES HOSPITAL ANKITA - 5 5 [facility] INPATIENT INC OFFICE 18862 JORDANA ARROYO OUTPATIEN 5 5 [facility] T VISIT 15 MINUTES HOSPITAL ANKITA - 5 5 [facility] OUTPATIEN [facility] ANKITA - 5 5 [facility] OUTPATIEN INC T OFFICE 89898 JORDANA ARROYO OUTPATIEN 5 5 [facility] T VISIT 15 MINUTES HOSPITAL ANKITA - 5 5 [facility] ANKITA - 5 5 [facility]PAT[facility]EN [facility] T OFFICE 98234 JORDANA ARROYO OUTPATIEN 5 5 [facility] T VISIT 15 MINUTES HOSPITAL ANKITA - 5 5 [facility] ANKITA [facility] 5 5 [facility] ANKITA - 5 5 [facility] OUTPATIEN [facility] T OFFICE 49588 JORDANA ARROYO OUTPATIEN 5 5 [facility] T VISIT 15 MINUTES HOSPITAL ANKITA - 5 5 [facility] OUTPATIEN [facility] ANKITA - 5 5 [facility] OUTPATIEN INC T OFFICE 40546 JORDANA R HAR[facility] OUTPATIEN 5 5 [facility] WANDA T VISIT 15 MINUTES HOSPITAL ANKITA - 5 5 [facility] INC T OFFICE 13461 JORDANA Kelley [facility] OUTPATIEN 4 4 [facility] WANDA T VISIT 15 MINUTES HOSPITAL ANKITA - 4 4 [facility] INC T HOSPITAL ANKITA - 4 4 [facility] INC T OFFICE 22940 [facility] OUTPATIEN 4 4 WANDA WANDA T VISIT 15 MINUTES EMERGENCY 43092 ALFARIS ALFARIS 4 4 [facility] DEPARTMEN T VISIT MODERATE SEVERITY EMERGENCY [address] [facility] INC T VISIT LOW/MODER SEVERITY HOSPITAL ANKITA - 4 4 [facility] INC T OFFICE 63673 HARPEL HARPEL OUTPATIEN 4 4 WANDA WANDA T VISIT 15 MINUTES OFFICE 74684 [facility] OUTPATIEN 4 4 WANDA WANDA T VISIT 15 MINUTES HOSPITAL ANKITA - 4 4 [facility] INC T EMERGENCY 74016 LEONA DELGADILLO 4 4 [facility] T VISIT MODERATE SEVERITY OFFICE 11364 [facility] OUTPATIEN 4 4 WANDA WANDA T VISIT 15 MINUTES OFFICE 51888 JORDANA Kelley [facility] OUTPATIEN 4 4 [facility] WANDA T VISIT 15 MINUTES EMERGENCY 37938 JESSIE ROMAN 4 4 [facility] VIS[facility] HIGH/URGE NT SEVERITY OFFICE 45806 JORDANA Kelley [facility] OUTPATIEN 4 4 [facility] WANDA T VISIT 15 MINUTES PERIODIC 29567 [facility] PREVENTIV 4 4 WANDA WANDA E MED EST PATIENT YRS OFFICE 31592 PENDELETO PENDELETO OUTPATIEN 4 4 N [facility] T VISIT [address] CENTER MINUTES OFFICE 93080 JORDANA AMANDAPEL OUTPATIEN 3 3 [facility] T VISIT 15 MINUTES HOSPITAL ANKITA - 3 3 [facility] OUTPATIEN INC T EMERGENCY 92726 BEBETO DELGADILLO DEPT 3 3 EMERGENCY [facility] VISIT SERVICES HIGH SEVERITY& THREAT [facility] ANKITA - 3 3 [facility] OUTPATIEN INC T OFFICE 68946 SIVAKUMAR SHAVER JR CONSULTAT 3 3 OMAR OMAR ION NEW/ESTAB PATIENT 60 MIN OFFICE 54067 JORDANA Kelley [facility]PE[facility] OUTPATIEN 3 3 [facility] T VISIT 15 MINUTES HOSPITAL ANKITA - 3 3 [facility] INPATIENT INC OFFICE 04868 JORDANA Kelley [facility] OUTPATIEN 3 3 [facility] T VISIT 15 MINUTES OFFICE 67622 JORDANA AMANDAPEL OUTPATIEN 3 3 [facility] T VISIT 15 MINUTES OFFICE 90235 JORDANA Kelley [facility]PE[facility] OUTPATIEN 3 3 [facility] T VISIT 15 MINUTES OFFICE 48590 JORDANA AMANDAPEL OUTPATIEN 3 3 [facility] T VISIT 15 MINUTES OFFICE 88779 JORDANA AMANDAPEL OUTPATIEN 3 3 [facility] T VISIT 15 MINUTES OFFICE 52046 JORDANA AMANDAPEL OUTPATIEN 3 3 [facility] T VISIT 15 MINUTES HOSPITAL ANKITA - 3 3 [facility] [address] [facility] T VISIT MODERATE SEVERITY OFFICE 19342 JORDANA AMANDAPEL OUTPATIEN 3 3 [facility] T VISIT 15 MINUTES OFFICE 08755 JORDANA MEZAL OUTPATIEN 3 3 [facility] T VISIT 15 MINUTES HOSPITAL ANKITA - 3 3 [facility] OUTPATIEN INC T OFFICE 37618 JORDANA MEZAL OUTPATIEN 3 3 [facility] WANDA T VISIT 15 MINUTES OFFICE 15354 JORDANA Kelley [facility] OUTPATIEN 3 3 [facility] WANDA T VISIT 15 MINUTES OFFICE 75731 JORDANA AMANDAPEL OUTPATIEN 3 3 [facility] WANDA T VISIT 15 MINUTES HOSPITAL ANKITA - 3 3 [facility] OUTPATIEN INC T OFFICE 30170 JORDANA MEZAL OUTPATIEN 3 3 [facility] WANDA T VISIT 15 MINUTES OFFICE 71683 JORDANA AMANDAPEL OUTPATIEN 3 3 [facility] WANDA T VISIT 15 MINUTES HOSPITAL ANKITA - 3 3 [facility] OUTPATIEN INC T OFFICE 22692 [facility] HARPEL OUTPATIEN 3 3 PHYSICIAN WANDA T VISIT GROUP 15 PCC MINUTES HOSPITAL ANKITA - 3 3 [facility]PAT[facility]EN [facility] ST - 3 3 [facility]ENTER OFFICE [address] ST OUTPATIEN 3 3 [facility] T VISIT MEDICAL 10 CENTER MINUTES OFFICE 49460 JORDANA MEZAL OUTPATIEN 3 3 [facility] T VISIT 15 MINUTES OFFICE 19213 [facility] HARPEL OUTPATIEN 3 3 PHYSICIAN WANDA T VISIT GROUP 15 PCC MINUTES HOSPITAL ANKITA - 3 3 [facility] OUTPATIEN INC T EMERGENCY 02344 BEBETO GOMEZER 3 3 EMERGENCY RAYMUNDO [facility] SERVICES T VISIT HIGH/URGE NT SEVERITY OFFICE 71031 [facility] CRUZ OUTPATIEN 3 3 PHYSICIAN WANDA T VISIT GROUP 15 PCC MINUTES OFFICE 02751 [facility] CRUZ OUTPATIEN 3 3 PHYSICIAN WANDA T VISIT GROUP 15 PCC MINUTES INITIAL 40671 [facility] CRUZ PREVENTIV 3 3 PHYSICIAN WANDA E GROUP MEDICINE PCC NEW PT AGE 18-39YRS OFFICE 15581 [facility] OUTPATIEN 3 3 [facility] T NEW 20 HLTH DEPT HLTH DEPT MINUTES [facility]
--- OUTSIDE RECORDS SUMMARY | 2017-02-02 09:15 | External Medical Summary Rpt ---
Author Author YONATHAN Noguera, [employer] Organization [employer] Address Unknown Phone Unavailable Results Comprehensive metabolic 2000 panel in Serum or Plasma Observa Value Referen Units Interpr Notes Date tion ce etation Range Albumin/G 1.1 - 1.8 No Low No January 27 lobulin informati informati 2016 [Mass on in on in 11:40 PM ratio] in source source Serum or data data Plasma Albumin 3.4 - 5.0 gm/dL Normal No January 27 [Mass/vol informati 2016 ume] in on in 11:40 PM Serum or source Plasma data Alkaline 46 - 116 U/L Normal No January 27 phosphata informati 2016 se on in 11:40 PM [Enzymati source c data activity/ volume] in Serum or Plasma Bilirubin 0.2 - 1.0 mg/dL Normal No January 27 .total informati 2016 [Mass/vol on in 11:40 PM ume] in source Serum or data Plasma Urea 7 - 18 mg/dL Normal No January 27 nitrogen informati 2016 [Mass/vol on in 11:40 PM ume] in source Serum or data Plasma Calcium 8.5 - mg/dL Normal No January 27 [Mass/vol 10.1 informati 2016 ume] in on in 11:40 PM Serum or source Plasma data Chloride 98 - 107 mmoL/L Normal No January 27 [Moles/vo informati 2016 lume] in on in 11:40 PM Serum or source Plasma data Carbon 21.0 - mmoL/L Normal No January 27 dioxide, 32.0 informati 2016 total on in 11:40 PM [Moles/vo source lume] in data Serum or Plasma Creatinin 0.55 - mg/dL Normal No January 27 e 1.02 informati 2016 [Mass/vol on in 11:40 PM ume] in source Serum or data Plasma Creatinin 50 - 200 ML/MIN Normal No January 27 e renal informati 2017 clearance on in 11:40 PM source predicted data by Cockcroft -Gault formula Estimated 59- ML/MIN No REFERENCE January 27 informati RANGE: 2017 glomerula on in >60 11:40 PM r source ML/MIN/1. filtratio data 73 SQUARE n rate METERSIf (GF this patient is -A merican, then multiply theresult by 1.210. Globulin 1.3 - 3.2 gm/dL High No January 27 [Mass/vol informati 2016 ume] in on in 11:40 PM Serum source data Glucose 74 - 106 mg/dL High No January 27 [Mass/vol informati 2016 ume] in on in 11:40 PM Serum or source Plasma data Potassium 3.5 - 5.1 mmoL/L Normal No January 272016 [Moles/vo on in 11:40 PM lume] in source Serum or data Plasma Sodium 136 - 145 mmoL/L Normal No January 27 [Moles/vo informati 2016 lume] in on in 11:40 PM Serum or source Plasma data Aspartate 15 - 37 U/L Low No January 272016 aminotran on in 11:40 PM sferase source [Enzymati data c activity/ volume] in Serum or Plasma Alanine 12 - 78 U/L Normal No January 27 aminotran 2016 sferase on in 11:40 PM [Enzymati source c data activity/ volume] in Serum or Plasma Protein 6.4 - 8.2 gm/dL Normal No January 27 [Mass/vol informati 2016 ume] in on in 11:40 PM Serum or source Plasma data CBC W Auto Differential panel in Blood Observa Value Referen Units Interpr Notes Date tion ce etation Range Basophils 0 - 0.2 K/MM3 Normal No January 272016 [#/volume on in 11:40 PM ] in source Blood by data Automated count Basophils 0.1 - 2.0 % Normal No January 27 /2016 leukocyte on in 11:40 PM s in source Blood by data Automated count Eosinophi 0.0 - 0.4 K/mm3 Normal No January 27 ls ati 2016 [#/volume on in 11:40 PM ] in source Blood by data Automated count Eosinophi 0.1 - % Normal No January 27 ls/100 12.0 2016 leukocyte on in 11:40 PM s in source Blood by data Automated count Granulocy 1.8 - 7.8 K/mm3 Normal No January 27 leonora 2016 [#/volume on in 11:40 PM ] in source Blood by data Automated count Granulocy 37.0 - % Normal No January 27 leonora/100 80.0 inform2016 leukocyte on in 11:40 PM s in source Blood by data Automated count Hematocri 37.0 - % Low No January 27 t [Volume 47.0 informati 2016 on in 11:40 PM Fraction] source of Blood data Hemoglobi 12.2 - g/dL Normal No January 27 n 16.2 informati 2016 [Mass/vol on in 11:40 PM ume] in source Blood data Lymphocyt 0.7 - 4.5 K/mm3 Normal No January 27 es informati 2016 [#/volume on in 11:40 PM ] in source Unspecifi data ed specimen by Automated count Lymphocyt 10 - 50.0 % Normal No January 27 es informati 2016 [#/volume on in 11:40 PM ] in source Unspecifi data ed specimen by Automated count Erythrocy 27 - 31.2 pg Normal No January 27 te mean inform2016 corpuscul on in 11:40 PM ar source hemoglobi data n [Entitic mass] Erythrocy 31.8 - g/dl Normal No January 27 te mean 35.4 inform2016 corpuscul on in 11:40 PM ar source hemoglobi data n concentra tion [Mass/vol ume] by Automated count Erythrocy 82.2 - fl Normal No January 27 te mean 97.8 inform2016 corpuscul on in 11:40 PM ar volume source [Entitic data volume] by Automated count Monocytes 0.1 - 1.0 K/mm3 Normal No January 27 informati 2016 [#/volume on in 11:40 PM ] in source Blood by data Automated count Monocytes 1.7 - 9.3 % Normal No January 27 / inform2016 leukocyte on in 11:40 PM s in source Blood by data Automated count Platelet 7.4 - fl Low No January 27 mean 10.4 informati 2016 volume on in 11:40 PM [Entitic source volume] data in Blood by Automated count Platelets 142 - 424 K/mm3 Normal No January 27 informati 2016 [#/volume on in 11:40 PM ] in source Blood data Erythrocy 4.2 - 5.4 M/mm3 Low No January 27 leonora informati 2016 [#/volume on in 11:40 PM ] in source Amniotic data fluid Erythrocy 11.5 - % Normal No January 27 te 17.5 informati 2016 distribut on in 11:40 PM ion width source [Entitic data volume] by Automated count Leukocyte 4.8 - K/MM3 Normal No January 27 s 10.8 informati 2016 [#/volume on in 11:40 PM ] in source Blood data Choriogonadotropin.beta subunit [Units] in 24 hour Urine Observa Value Referen Units Interpr Notes Date tion ce etation Range Choriogon NEG No No No January 27 adotropin informati informati informati 2016 .beta on in on in on in 11:20 PM subunit source source source [Units] data data data in 24 hour Urine
--- OUTSIDE RECORDS SUMMARY | 2017-02-02 09:15 | External Medical Summary Rpt ---
Author Author , Organization [employer] Address Unknown Phone Unavailable Purpose Continuity of Care Document - 03-20-1999 through 2016 Immunization Name Date Route CVX Reacti Commen Provid Is Given on t er Refuse d MMR Histor H196 No 1998 ical Inform ation - Source Unspec ified
== END 2017-01-28 01:32 | disposition home or self-care (01) ==
LOC: ER 23:15
PROVIDERS: Emergency Medicine
DX: G43.101 Migraine with aura, not intractable, with status migrainosus (principal); Z72.0 Tobacco use
CPT/HCPCS: J2405